=== PATIENT | female | born 1945 | race Caucasian/White ===

== ENCOUNTER 2020-05-15 22:44 | Inpatient (IN) | payer OTHER, SELFPAY ==
[2020-05-15 22:50] VITALS: BP 95/58; PULSE 72; PULSE 73; RESP 34; TEMP 38.3; O2SAT 84; O2SAT 94; BMI 33.2
[2020-05-15 22:55] VITALS: BP 95/58; PULSE 72; RESP 34; TEMP 38.3; O2SAT 94
--- NOTE | 2020-05-15 23:39 | RAD_ITS ---
STUDY: X-RAY CHEST REASON FOR EXAM: Female, 74 years old. Cough, shortness of breath. TECHNIQUE: AP portable chest. COMPARISON: None. FINDINGS: Patchy bilateral airspace opacities right lung greater than left, most prominent in the right midlung, right lower lung and left lower lung. No effusions. No pneumothorax. Normal size heart. Normal mediastinum and julia. Normal visualized pulmonary arteries. Normal visualized aortic arch and descending thoracic aorta. Normal visualized thoracic spine. Normal visualized ribs, clavicles, and shoulders. There is no demonstrated abnormality of the visualized soft tissue structures of the upper abdomen. RAD/Chest 1 View (Portable) IMPRESSION: Bilateral pneumonia. Electronically Signed: Billy Cook MD at 1:39 EDT , Service support ,
--- NOTE | 2020-05-15 23:39 | EKG12_ITS ---
Test Reason : SOB Blood Pressure : / mmHG Vent. Rate : 078 BPM Atrial Rate : 078 BPM P-R Int : 132 ms QRS Dur : 090 ms QT Int : 382 ms P-R-T Axes : 055 008 048 degrees QTc Int : 435 ms Sinus rhythm with Premature atrial complexes Cannot rule out Inferior infarct , age undetermined Abnormal ECG Confirmed by ALIZE ASHRAF, TESFAYE ([id number]), senior editor MITCHEL MATHIS ([id number]) on 05/17/2020 1:50:40 PM Referred By: LEONARDO Confirmed By:TESFAYE HERRMANN MD
[2020-05-15 23:41] VITALS: BP 148/135; PULSE 75; RESP 22; TEMP 39; O2SAT 96
--- NOTE | 2020-05-15 23:41 | ED.DCSUM_ITS ---
History of Present Illness Chief Complaint: Shortness of Breath Informant: Patient Narrative: 74-year-old female presenting with hypoxia, fever, generalized weakness, cough. She states that her has similar symptoms. She states that she developed her symptoms 7 days ago. She states that she feels worse today. Per EMS she was hypoxic. She states she is generally weak and fell today but she did not injure anything. She denies hitting her head. She states that she has Parkinson's disease which makes it hard for her at baseline. She denies chest pain. Past Medical History - Allergies and Home Meds Allergies/Adverse Reactions: Allergies No Known Allergies Allergy (Verified 05/16/20 05:46) Prior records reviewed: Yes Past Medical History: - - Parkinson's disease Surgical History: noncontributory Lives: Spouse/ Significant Other Smoking Status: Never smoker Alcohol: None Drugs: None - Family History Maternal Family History: Reports: - - Patient reported that her mother of old age. Paternal Family History: Reports: - - Patient denies paternal medical history. Review of Systems General: Reports: Chills, Fever, Malaise Eyes: Denies: Visual changes - bilaterally, Diplopia ENT: Denies: Rhinorrhea, Sore throat Cardiovascular: Denies: Chest pain, Palpitations Respiratory: Reports: Dyspnea, Cough, Dyspnea on exertion Gastrointestinal: Denies: Abdominal pain, Nausea, Vomiting, Diarrhea, Melena, Hematochezia Genitourinary: Denies: Dysuria, Hematuria, Frequency Musculoskeletal: Reports: Myalgias. Denies: Extremity Pain Skin: Denies: Rash, Abscess Neurological: Denies: Parasthesia, Numbness Physical Exam Vital Signs/Narrative: Vital Signs Temp Pulse Resp BP Pulse Ox 05/15/20 22:55 101.0 F H 72 34 H 95/58 L 94 05/15/20 22:50 101.0 F H 72 34 H 95/58 L 94 Inital Vital Signs reviewed: Yes General: Obese, No Acute Distress Head: Normocephalic, Atraumatic Eyes: Perrl, EOMI ENT: No rhinorrhea, Dry mucous membranes Cardiovascular: Regular rate, Regular rhythm Respiratory: No distress, Decreased Air Movement Abdomen: Soft, Nontender, Nondistended Skin: Normal color, No rash. Negative for: Cyanosis, Diaphoresis Neurological: Alert, Oriented x3 Psychological: Normal affect, Normal Mood Diagnostic/Tx/Re-eval Clinical Impression(s) from Imaging Studies Chest X-Ray 05/15/20 23:39 IMPRESSION: Bilateral pneumonia. Electronically Signed: Billy Cook MD at 1:39 EDT , Service support , Chest CTA 05/16/20 02:01 IMPRESSION: No pulmonary embolus or thoracic aortic dissection. Multifocal pneumonia right greater than left, to include viral pneumonia. Electronically Signed: Billy Cook MD at 3:22 EDT , Service support , Laboratory Data 05/15/20 05/15/20 05/16/20 00:12 23:50 01:15 WBC 3.4 L RBC 4.01 L Hgb 12.2 Hct 35.3 L MCV 88.0 MCH 30.4 MCHC 34.6 RDW Std Deviation 40.8 RDW Coeff of [place] 12.7 Plt Count 154 MPV 10.3 Immature Gran % (Auto) 0.300 Neut % (Auto) 78.7 H Lymph % (Auto) 14.[address] [place] % (Auto) 5.9 Eos % (Auto) 0.0 Baso % (Auto) 0.3 Absolute Neuts (auto) 2.7 Absolute Lymphs (auto) 0.50 L Nucleated RBC % 0 Differential Comment SCANNED Diff Path Review May foll PT INR APTT D-Dimer Quant (PE/DVT) Sodium Potassium Chloride Carbon Dioxide Anion Gap BUN Creatinine Estim Creat Clear Calc Est GFR (MDRD) Af Amer Est GFR (MDRD) Non-Af BUN/Creatinine Ratio Glucose Lactic Acid Calcium Total Bilirubin AST ALT Alkaline Phosphatase Troponin I Total Protein Albumin Globulin Albumin/Globulin Ratio Urine Color Straw Urine Clarity Clear Urine pH 6.0 Ur Specific [place] 1.010 Urine Protein 30 H Urine Glucose (UA) Normal Urine Ketones 15 H Urine Occult Blood 10 H Urine Nitrite Negative Urine Bilirubin Negative Urine Urobilinogen 1 H Ur Leukocyte Esterase 25 H Urine RBC 0-5 SEEN Urine WBC 0-5 SEEN Ur Squamous Epith Cells 0 SEEN Urine Bacteria RARE Urine Mucus 0 SEEN COVID-19 ([place]) Detected 1005/16/20 05/16/20 01:15 01:15 01:15 WBC RBC Hgb Hct MCV MCH MCHC RDW Std Deviation RDW Coeff of [place] Plt Count MPV Immature Gran % (Auto) Neut % (Auto) Lymph % (Auto) [place] % (Auto) Eos % (Auto) Baso % (Auto) Absolute Neuts (auto) Absolute Lymphs (auto) Nucleated RBC % Differential Comment Diff Path Review PT 13.8 INR 1.1 APTT 24.5 D-Dimer Quant (PE/DVT) 1.34 H* Sodium 134 L Potassium 3.1 L Chloride 99 Carbon Dioxide 23.0 Anion Gap 12 BUN 11 Creatinine 0.76 Estim Creat Clear Calc 41.45 Est GFR (MDRD) Af Amer 96 Est GFR (MDRD) Non-Af 79 BUN/Creatinine Ratio 14.5 Glucose 124 H Lactic Acid 1.3 Calcium 8.1 L Total Bilirubin 0.60 AST 50 H ALT 43 Alkaline Phosphatase 59 Troponin I 0.018 Total Protein 6.0 L Albumin 2.6 L Globulin 3.4 Albumin/Globulin Ratio 0.8 L Urine Color Urine Clarity Urine pH Ur Specific [place] Urine Protein Urine Glucose (UA) Urine Ketones Urine Occult Blood Urine Nitrite Urine Bilirubin Urine Urobilinogen Ur Leukocyte Esterase Urine RBC Urine WBC Ur Squamous Epith Cells Urine Bacteria Urine Mucus COVID-19 ([place]) - Rhythm Strip Rhythm Strip: Sinus Rhythm Rate: 78 - EKG Initial EKG Interpretation: Sinus Rhythm, No Acute Injury Pattern - Medical Decision Making 74-year-old female presenting with hypoxia, fever, cough. She states that she believes she has Covid. She also believes her has it. She is feeling short of breath. Rival her oxygen is in the 80s. Since lab work is consistent with viral syndrome. She is positive for Covid. She stabilized on 3L of oxygen and maintaining sats in the 90s. Chest x-ray bilateral pneumonia. CTA shows concern for Covid?19. There are no pulmonary emboli. Patient will be admitted to the medical floor for treatment of her hypoxia and Covid?19. Impression: 1. Covid?19 pneumonia 2. Hypoxia 3. Fever ED Disposition - Plan for ED Patient: Disposition: Acute Care Hospital [facility]
[2020-05-15 23:43] VITALS: O2SAT 96
[2020-05-15] MEDS: Acetaminophen 500 MG Tablet 1000 MG PO (23:57)
[2020-05-16] VITALS (9 sets, daily range): BP systolic 110–125; BP diastolic 50–80; PULSE 61–70; RESP 17–20; TEMP 36.5–37.3; O2SAT 93–99; BMI 32.1
[2020-05-16 00:34] LABS: Color, Urine Straw (Yellow); Glucose, Dipstick Normal (Normal); Ketone-Dipstick 15 mg/dl (Negative); Leukocyte Esterase-Dipstick 25 /ul (Negative); Mucous, Urine 0 SEEN /hpf (<or=2+); Nitrite-Dipstick Negative (Negative); Occult Blood-Urine 10 /ul (Negative); Protein-Dipstick 30 mg/dl (Negative); Squamous Epithelial Cells - UA 0 SEEN /hpf (5-10); Urine Bilirubin Dipstick Negative (Negative); Urine Clarity Clear (Clear); Urine Urobilinogen 1 mg/dl (Normal)
[2020-05-16 00:41] LABS: Bacteria RARE /hpf (None Seen); Red Blood Cells-Urine 0-5 SEEN /hpf (0-5); White Blood Cells 0-5 SEEN /hpf (0-5)
[2020-05-16 01:23] LABS: Absolute Neutrophil Count 2.7 X10^3/uL (2.0-7.7); Basophil# 0.01 X10^3/uL; Basophil% 0.3 % (0-1); Hematocrit 35.3 % (37-47); Hemoglobin 12.2 g/dL (12.0-15.0); Lymphocyte % 14.8 % (19-41); Mean Corp Hgb Conc 34.6 g/dL (32-36); Mean Corpuscular Hgb 30.4 pg (27.0-32.0); Mean Platelet Vol. 10.3 fl (6.2-12.0); Monocyte% 5.9 % (0-10); NRBC Flagged by Analyzer 0 % (0-5); Neutrophil # 2.65 X10^3/uL (2.7-7.7); Neutrophil % 78.7 % (47-70); POSITIVE COUNT YES; POSITIVE DIFFERENTIAL YES; Platelet Count 154 K/mm3 (150-450); RBC Distribution Width CV 12.7 % (11.6-14.6); RBC Distribution Width SD 40.8 fl (35.1-43.9); Red Blood Count 4.01 M/mm3 (4.2-5.4); White Blood Count 3.4 K/mm3 (4.4-11.0)
[2020-05-16 01:32] LABS: International Normalized Ratio 1.1; Prothrombin Time (Protime)PT. 13.8 SECONDS (11.7-14.9)
[2020-05-16 01:33] LABS: Partial Thromboplast Time 24.5 Seconds (24.1-36.2)
[2020-05-16 01:38] LABS: D-Dimer Quantitative (DVT/PE) 1.34 FEU/ug/m (0.27-0.49)
[2020-05-16 01:39] LABS: Differential Indicated SCAN CRITERIA MET
[2020-05-16 01:40] LABS: ALB/GLOB Ratio 0.8 RATIO (0.9-2.4); AST(SGOT) 50 U/L (15-37); Alanine Aminotransfer ALT/SGPT 43 U/L (13-56); Albumin, Serum 2.6 g/dL (3.2-5.0); Alkaline Phosphatase 59 U/L (45-117); Anion Gap 12 (5-15); BUN 11 mg/dL (7-18); BUN/Creat Ratio 14.5 RATIO (10-20); Calcium,Total 8.1 mg/dL (8.5-10.1); Chloride 99 mmol/L (98-107); Creatinine, Serum 0.76 mg/dL (0.55-1.02); EST Glomerular Filtration Rate 79 mL/min (>60); Est Glom Filt Rate - Afr Amer 96 mL/min (>60); Estimated Creatinine Clearance 41.45 ml/min; Globulin 3.4 g/dL (2.2-4.2); Glucose 124 mg/dL (74-106); Potassium 3.1 mmol/L (3.5-5.1); Sodium Level 134 mmol/L (136-145)
--- NOTE | 2020-05-16 02:01 | CT_ITS ---
STUDY: CTA CHEST REASON FOR EXAM: Female, 74 years old. Cough, shortness of breath, hypoxia. History of Parkinson''s disease. RADIATION DOSAGE (If Supplied By Facility): CTDIvol = ( 14.58 ) mGy, DLP = ( 499.06 ) mGycm TECHNIQUE: The examination was performed with the intravenous administration of IV 75mL [id number]-[id number]. Post-processing of the angiographic images was performed, with multiplanar reformation and 3D reconstruction. Individualized dose optimization techniques were used for this CT. COMPARISON: Chest x-ray May 16, 2020. FINDINGS: Normal enhancement of the main pulmonary artery and right and left pulmonary arteries. Normal enhancement of the bilateral peripheral pulmonary arteries. There is no demonstrated pulmonary embolism. Normal thoracic aorta and visualized great vessels. There is no demonstrated aortic dissection. Normal heart and pericardium. Normal mediastinum. Normal hilar regions. Normal visualized trachea and bronchi. Multiple peripheral groundglass opacities and multiple focal areas of consolidation, right greater than left. No pleural effusions. No pneumothorax. Normal chest wall structures. Normal osseous structures. Normal visualized upper abdomen. CT/CTA Chest W/WO Contrast IMPRESSION: No pulmonary embolus or thoracic aortic dissection. Multifocal pneumonia right greater than left, to include viral pneumonia. Electronically Signed: Billy Cook MD at 3:22 EDT , Service support ,
[2020-05-16 02:06] LABS: Lactic Acid 1.3 mmol/L (0.4-1.9)
[2020-05-16 02:15] LABS: Differential Comment SCANNED
--- NOTE | 2020-05-16 04:52 | PCM.HP.STD ---
Problem List (1) COVID-19 virus detected Status: Acute (2) Pneumonia due to 2019 novel coronavirus Status: Acute History of Present Illness Date of Admission: 05/16/20 Chief Complaint: SOB The patient is a 74 year old F with a significant history of Parkinson's disease who presents to the emergency department with a 2-week history of progressively worsening shortness of breath. Associated with symptoms is a productive cough. However she swallows her sputum and cannot tell the color.. 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 Past Medical History Medical History: Medical History (Last Updated 05/16/20 @ 05:[address] Timothy Crews MD) Parkinsons disease G20 Allergies No Known Allergies Allergy (Verified 05/15/20 22:48) Home Medications: Ambulatory Orders Medication Instructions Recorded Carbidopa/Levodopa 25/250 [Sinemet] 1 tab PO 4X/DAY 05/15/20 Pramipexole Di-HCl [Mirapex] 1.5 mg PO TID 05/15/20 Rasagiline Mesylate [Azilect] 1 mg PO DAILY 05/15/20 Surgical History: no surgical history Lives: Spouse/ Significant Other Smoking Status: Never smoker Alcohol: None Drugs: None - *Family History Maternal History Items: - - Patient reported that her mother of old age. Paternal History Items: - - Patient denies paternal medical history. Review of Systems Constitutional: Reports: Chills, Fever, Malaise, Fatigue. Denies: Weight Change HEENT: Denies: Head Aches, Sinus Congestion, Sinus Drainage Cardiovascular: Denies: Chest Pain, Palpitations Respiratory: Reports: Cough, Shortness of Breath, Sputum production Gastrointestinal: Denies: Abdominal Pain, Nausea, Vomiting Genitourinary: Denies: Dysuria Musculoskeletal: Denies: Joint Pain, Joint Tenderness Skin: Denies: Rash, Wounds Neurological: Denies: Numbness, Tingling, Focal weakness Psychiatric: Denies: Anxiety, Depression, Homicidal Ideations, Suicidal Ideations Hematologic/ Lymphatic: Denies: Easy Bruising, Easy Bleeding VTE Information - Inpt Only VTE Present on Admission: No VTE Mechan Device Prophylaxis: None VTE Pharm Prophylaxis ordered?: Yes Patient Problems: Active and Suspected Problems (Last Updated 05/16/20 @ 05:[address] Timothy Crews MD) COVID-19 virus detected (Acute) Pneumonia due to 2019 novel coronavirus (Acute) - Physical Exam Vitals/I&O's: Vital Signs Temp Pulse Resp BP Pulse Ox 97.7 F L 61 20 H 125/80 H 99 05/16/20 04:11 05/16/20 04:11 05/16/20 04:11 05/16/20 04:11 05/16/20 04:11 Oxygen Flow Rate (L/min) 3 Oxygen Delivery Method Nasal Cannula Weight: 85 kg Body Mass Index (BMI) 33.2 Intake and Output for Last 24 Hours 05/14/20 05/15/20 05/16/20 23:59 23:59 23:59 Intake Total 500 / 500 Balance 500 / 500 General: Alert, Oriented x3, Cooperative HEENT: Atraumatic, PERRLA, EOMI, Normocephalic Neck: Supple, No JVD, Negative Carotid Bruits Lungs: Rales Cardiovascular: Regular rate, Normal S1, Normal S2, No murmurs Abdomen: Bowel Sounds Present, Soft, Non Tender Extremities: No edema, Capillary Refill Less than 3 Seconds Skin: No rashes, No breakdown Musculoskeletal: No Tenderness to Palpation of Joints or Extremities Neurological: Cranial nerves II-XII grossly intact Psych/Mental Status: Normal Affect, Appropriate Laboratory Results 05/15/20 00:12: Urine Color Straw, Urine Clarity Clear, Urine pH 6.0, Ur Specific [place] 1.010, Urine Protein 30 H, Urine Glucose (UA) Normal, Urine Ketones 15 H, Urine Occult Blood 10 H, Urine Nitrite Negative, Urine Bilirubin Negative, Urine Urobilinogen 1 H, Ur Leukocyte Esterase 25 H, Urine RBC 0-5 SEEN, Urine WBC 0-5 SEEN, Ur Squamous Epith Cells 0 SEEN, Urine Bacteria RARE, Urine Mucus 0 SEEN 05/15/20 23:50: COVID-19 ([place]) Detected 05/16/20 01:15: WBC 3.4 L, RBC 4.01 L, Hgb 12.2, Hct 35.3 L, MCV 88.0, MCH 30.4, MCHC 34.6, RDW Std Deviation 40.8, RDW Coeff of [place] 12.7, Plt Count 154, MPV 10.3, Immature Gran % (Auto) 0.300, Neut % (Auto) 78.7 H, Lymph % (Auto) 14.8 L, [place] % (Auto) 5.9, Eos % (Auto) 0.0, Baso % (Auto) 0.3, Absolute Neuts (auto) 2.7, Absolute Lymphs (auto) 0.50 L, Nucleated RBC % 0, Differential Comment SCANNED, Diff Path Review November05/16/20 01:15: PT 13.8, INR 1.1, APTT 24.5, D-Dimer Quant (PE/DVT) 1.34 H* 05/16/20 01:15: Sodium 134 L, Potassium 3.1 L, Chloride 99, Carbon Dioxide 23.0, Anion Gap 12, BUN 11, Creatinine 0.76, Estim Creat Clear Calc 41.45, Est GFR (MDRD) Af Amer 96, Est GFR (MDRD) Non-Af 79, BUN/Creatinine Ratio 14.5, Glucose 124 H, Calcium 8.1 L, Total Bilirubin 0.60, AST 50 H, ALT 43, Alkaline Phosphatase 59, Troponin I 0.018, Total Protein 6.0 L, Albumin 2.6 L, Globulin 3.4, Albumin/Globulin Ratio 0.8 L 05/16/20 01:15: Lactic Acid 1.3 Assessment/Plan All Active Problems (Last Updated 05/16/20 @ 05:[address] Timothy Crews MD) COVID-19 virus detected (Acute) Pneumonia due to 2019 novel coronavirus (Acute) SARS COVID-19 infection. Dimer was elevated. Chest x-ray showed bilateral pneumonia. Chest CT was remarkable for multifocal pneumonia right greater than left. Different diagnoses included viral pneumonia. COVID-19 was positive. Procalcitonin, strep pneumonia antigen and Legionella urine antigen ordered. Ceftriaxone and azithromycin ordered. Decadron IV ordered. Infectious disease consult and pulmonology consult. Tylenol for fever and Mucinex for cough ordered. Parkinson disease: Home medication continued. DVT Prophylaxis Lovenox 30 mg bid subcutaneous prophylaxis Covid protocol. Inpatient E&M: 41770 Init Hosp L3
[2020-05-16] MEDS: Ceftriaxone 1 GM/50 ML BAG IV (06:10)
[2020-05-16] MEDS: dexAMETHasone 10 MG/ML Vial 6 MG IV ×2 (06:12→09:47)
[2020-05-16] MEDS: Pramipexole Di-HCl 1 MG Tablet 1.5 MG PO ×3 (06:13→23:03)
--- NOTE | 2020-05-16 07:30 | PCM.CONS.PUL ---
Reason for Consult Date of Consultation: 05/16/20 Reason for Consultation: Covid pneumonia History of Present Illness: The patient is a 74-year-old female, with a history as outlined below, who presented to the emergency department on May 15 with complaints of progressive shortness of breath, nonproductive cough and weakness of approximately 2 weeks duration. She does report that additional family members, including her sister have been ill and apparently diagnosed with Covid. On presentation to the emergency department, the patient was noted to be febrile with a temperature of 101 ?F. She was tachypneic as well and saturating 84% on room air. Laboratory evaluation revealed an elevated D-dimer at 1.34. Chemistry profile was notable for a sodium of 134 and potassium of 3.1. Lactate was within normal limits. Urinalysis was unremarkable. Coronavirus PCR was positive. CTA chest was obtained and failed to demonstrate evidence for PE. There was, nevertheless, evidence of bilateral multifocal groundglass changes with some basilar predominant consolidation. The patient was placed on empiric antimicrobials along with Decadron and admitted to the progressive care unit for further management. Past Medical History Medical History: Medical History (Last Updated 05/16/20 @ 05:[address] Timothy Crews MD) Parkinsons disease G20 Allergies No Known Allergies Allergy (Verified 05/16/20 05:46) Home Medications: Ambulatory Orders Medication Instructions Recorded Carbidopa/Levodopa 25/250 [Sinemet] 1 tab PO 4X/DAY 05/15/20 Pramipexole Di-HCl [Mirapex] 1.5 mg PO TID 05/15/20 Rasagiline Mesylate [Azilect] 1 mg PO DAILY 05/15/20 Surgical History: no surgical history Lives: Spouse/ Significant Other Smoking Status: Never smoker Alcohol: None Drugs: None - *Family History Maternal History Items: - - Patient reported that her mother of old age. Paternal History Items: - - Patient denies paternal medical history. Review of Systems Constitutional: Reports: Chills, Fever, Malaise, Weakness, Fatigue Eyes: Denies: Blurred vision, Double vision HEENT: Denies: Head Aches, Sinus Congestion, Sinus Drainage Cardiovascular: Denies: Chest Pain, Palpitations Respiratory: Reports: Cough, Shortness of Breath Gastrointestinal: Denies: Abdominal Pain, Nausea, Vomiting Genitourinary: Denies: Dysuria Musculoskeletal: Denies: Joint Pain, Joint Tenderness Skin: Denies: Rash, Wounds Neurological: Denies: Numbness, Tingling, Focal weakness Psychiatric: Denies: Anxiety, Depression, Homicidal Ideations, Suicidal Ideations Hematologic/ Lymphatic: Denies: Easy Bruising, Easy Bleeding Patient Problems: Active and Suspected Problems (Last Updated 05/16/20 @ 05:[address] Timothy Crews MD) COVID-19 virus detected (Acute) Pneumonia due to 2019 novel coronavirus (Acute) Objective: The patient's most recent lab work, culture data and imaging studies have all been personally reviewed. - Physical Exam Vitals/I&O's: Vital Signs Temp Pulse Resp BP Pulse Ox 99.1 F 70 18 110/52 L 94 05/16/20 05:56 05/16/20 05:56 05/16/20 05:56 05/16/20 05:56 05/16/20 05:56 Oxygen Flow Rate (L/min) 3 Oxygen Delivery Method Nasal Cannula Weight: 180 lb 15.992 oz Body Mass Index (BMI) 32.1 Intake and Output for Last 24 Hours 05/14/20 05/15/20 05/16/20 23:59 23:59 23:59 Intake Total 550 / 550 Balance 550 / 550 General: Alert, Cooperative, No apparent distress HEENT: Atraumatic, PERRLA, Normocephalic Oral: No Gingival or Mucosal Lesions/ Ulcerations Neck: Supple, No Nodes, Trachea Midline Lungs: Diminished, Rales, - - Speaking in complete sentences. No accessory muscle use. Cardiovascular: Regular rate, Regular Rhythm Abdomen: Bowel Sounds Present, Soft, Non Tender Extremities: No clubbing, No cyanosis, No edema Skin: No breakdown Musculoskeletal: No Tenderness to Palpation of Joints or Extremities Lymphatic: No Cervical, Supraclavicular, or Inguinal Adenopathy Neurological: Cranial nerves II-XII grossly intact, Neuro grossly intact Psych/Mental Status: Normal Affect, Appropriate Labs (Last 48 Hours) 05/15/20 05/15/20 05/16/20 00:12 23:50 01:15 WBC 3.4 L RBC 4.01 L Hgb 12.2 Hct 35.3 L MCV 88.0 MCH 30.4 MCHC 34.6 RDW Std Deviation 40.8 RDW Coeff of [place] 12.7 Plt Count 154 MPV 10.3 Immature Gran % (Auto) 0.300 Neut % (Auto) 78.7 H Lymph % (Auto) 14.8 L [place] % (Auto) 5.9 Eos % (Auto) 0.0 Baso % (Auto) 0.3 Absolute Neuts (auto) 2.7 Absolute Lymphs (auto) 0.50 L Nucleated RBC % 0 Differential Comment SCANNED Diff Path Review May foll PT INR APTT D-Dimer Quant (PE/DVT) Sodium Potassium Chloride Carbon Dioxide Anion Gap BUN Creatinine Estim Creat Clear Calc Est GFR (MDRD) Af Amer Est GFR (MDRD) Non-Af BUN/Creatinine Ratio Glucose Lactic Acid Calcium Total Bilirubin AST ALT Alkaline Phosphatase Troponin I Total Protein Albumin Globulin Albumin/Globulin Ratio Urine Color Straw Urine Clarity Clear Urine pH 6.0 Ur Specific [place] 1.010 Urine Protein 30 H Urine Glucose (UA) Normal Urine Ketones 15 H Urine Occult Blood 10 H Urine Nitrite Negative Urine Bilirubin Negative Urine Urobilinogen 1 H Ur Leukocyte Esterase 25 H Urine RBC 0-5 SEEN Urine WBC 0-5 SEEN Ur Squamous Epith Cells 0 SEEN Urine Bacteria RARE Urine Mucus 0 SEEN COVID-19 ([place]) Detected 05/16/20 05/16/20 05/16/20 01:15 01:15 01:15 WBC RBC Hgb Hct MCV MCH MCHC RDW Std Deviation RDW Coeff of [place] Plt Count MPV Immature Gran % (Auto) Neut % (Auto) Lymph % (Auto) [place] % (Auto) Eos % (Auto) Baso % (Auto) Absolute Neuts (auto) Absolute Lymphs (auto) Nucleated RBC % Differential Comment Diff Path Review PT 13.8 INR 1.1 APTT 24.5 D-Dimer Quant (PE/DVT) 1.34 H* Sodium 134 L Potassium 3.1 L Chloride 99 Carbon Dioxide 23.0 Anion Gap 12 BUN 11 Creatinine 0.76 Estim Creat Clear Calc 41.45 Est GFR (MDRD) Af Amer 96 Est GFR (MDRD) Non-Af 79 BUN/Creatinine Ratio 14.5 Glucose 124 H Lactic Acid 1.3 Calcium 8.1 L Total Bilirubin 0.60 AST 50 H ALT 43 Alkaline Phosphatase 59 Troponin I 0.018 Total Protein 6.0 L Albumin 2.6 L Globulin 3.4 Albumin/Globulin Ratio 0.8 L Urine Color Urine Clarity Urine pH Ur Specific [place] Urine Protein Urine Glucose (UA) Urine Ketones Urine Occult Blood Urine Nitrite Urine Bilirubin Urine Urobilinogen Ur Leukocyte Esterase Urine RBC Urine WBC Ur Squamous Epith Cells Urine Bacteria Urine Mucus COVID-19 ([place]) Microbiology 05/16/20 06:00 Urine, Clean Catch Streptococcus pneumoniae Antigen (M - Final 05/16/20 06:00 Urine, Clean Catch Legionella Antigen - Final Clinical Impression(s) from Imaging Studies Chest X-Ray 05/15/20 23:39 IMPRESSION: Bilateral pneumonia. Electronically Signed: Billy Cook MD at 1:39 EDT , Service support , Chest CTA 05/16/20 02:01 IMPRESSION: No pulmonary embolus or thoracic aortic dissection. Multifocal pneumonia right greater than left, to include viral pneumonia. Electronically Signed: Billy Cook MD at 3:22 EDT , Service support , Current Medications Acetaminophen (Acetaminophen 325 Mg Tablet) 650 mg PO Q6H PRN PRN PRN Reason: Pain Score 1-10/Temp > 100.7 F Carbidopa/Levodopa (Carbidopa/Levodopa 25/250 Tablet) 1 tablet PO 4X/DAY [facility] Dexamethasone Sodium Phosphate (Dexamethasone 10 Mg/Ml Vial) 6 mg IV DAILY [facility] Last Admin: 05/16/20 06:12 Dose: 6 mg Documented by: Enoxaparin Sodium (Enoxaparin 30 Mg/0.3 Ml Syringe) 30 mg SC BID [facility] Guaifenesin (Guaifenesin 1,200 Mg Tablet) 1,200 mg PO BID [facility] Azithromycin 500 mg/ Dextrose 255 mls @ 250 mls/hr IV QHS [facility] Last Admin: 05/16/20 06:55 Dose: 250 mls/hr Documented by: Ceftriaxone Sodium (Rocephin) 1 gm in 50 mls @ 100 mls/hr IV QHS [facility] Last Infusion: 05/16/20 06:40 Dose: Infused Documented by: Sodium Chloride () 250 mls @ 15 mls/hr IV .[id number] PRN PRN Reason: Saline Flush Sodium Chloride () 250 mls @ 15 mls/hr IV .[id number] PRN PRN Reason: Additional IVPB Infusion Melatonin (Melatonin 3 Mg Tablet) 3 mg PO QHS PRN PRN PRN Reason: INSOMNIA Ondansetron HCl (Ondansetron 4 Mg/2 Ml Vial) 4 mg IV Q8H PRN PRN PRN Reason: NAUSEA/VOMITING Pramipexole Dihydrochloride (Pramipexole Di-Hcl 1 Mg Tablet) 1.5 mg PO TID [facility] Last Admin: 05/16/20 06:13 Dose: 1.5 mg Documented by: Rasagiline (Rasagiline Mesylate 1 Mg Tablet) 1 mg PO DAILY [facility] Sodium Chloride (0.9% Saline Lock 10 Ml Syringe) 10 - 40 ml IV UD PRN PRN Reason: SALINE FLUSH Assessment/Plan All Active Problems (Last Updated 05/16/20 @ 05:[address] Timothy Crews MD) COVID-19 virus detected (Acute) Pneumonia due to 2019 novel coronavirus (Acute) RECOMMENDATIONS: 1. Wean supplemental oxygen to maintain saturations at or above 90%. 2. Continue Decadron 6 mg daily x10 days. 3. Continue empiric antimicrobials, pending evaluation by infectious diseases. 4. Unlikely to benefit from convalescent plasma and/or remdesivir, given duration of symptoms. 5. Electrolyte repletion as ordered. 6. Encourage incentive spirometer use and mobilize patient as tolerated. IMPRESSIONS: 1. Acute hypoxemic respiratory failure secondary to COVID-19 pneumonia The patient presented to the hospital with Covid-like symptoms of approximately 2 weeks duration. She is currently maintaining appropriate oxygen saturations on nasal cannula supplemental oxygen. Given the patient's duration of symptoms, she is unlikely to benefit from remdesivir or convalescent plasma. However, infectious diseases consultation is currently pending. We will plan to continue empiric antimicrobials for now. Plan to wean supplemental oxygen to maintain saturations at or above 90%. Continue Decadron 6 mg daily x10 days. Encourage incentive spirometer use and mobilize patient as tolerated. 2. Hypokalemia Electrolyte repletion as ordered. Recheck levels in the morning. This note was generated with [employer]atch[employer] software. It may contain incorrect words, spelling, and punctuation that were not noted in checking the note before signing. Inpatient E&M: 53442 Init Hosp L3
--- NOTE | 2020-05-16 08:20 | PCM.PN.BLA ---
Progress Note 74-year-old female who was admitted with hypoxia and fever and cough and diagnosed with acute COVID-19. Patient was seen and examined. She feels very weak. Vitals reviewed, on 2 L of oxygen. D-dimer is elevated, potassium is 3.1, magnesium is 2.1. Potassium is being replaced. Cesar blood work in a.m. On IV dexamethasone CT of the chest is negative for acute PE, showed multifocal pneumonia, right greater than left. ID consulted STROKE Vital Signs/Narrative: Vital Signs Temp Pulse Resp BP Pulse Ox 05/16/20 05:56 99.1 F 70 18 110/52 L 94
[2020-05-16 08:31] LABS: Absolute Lymphocyte Count 0.44 X10^3/uL (0.83-4.51); Absolute Neutrophil Count 2.4 X10^3/uL (2.0-7.7); Basophil# 0.01 X10^3/uL; Basophil% 0.3 % (0-1); Eosinophil# 0.01 X10^3/uL; Eosinophils% 0.3 % (0-5); Hematocrit 37.1 % (37-47); Hemoglobin 12.6 g/dL (12.0-15.0); Lymphocyte # 0.44 X10^3/ul (4.0); Lymphocyte % 14.5 % (19-41); Mean Corpuscular Volume 88.3 fL (81-99); Mean Platelet Vol. 9.9 fl (6.2-12.0); Monocyte# 0.12 X10^3/uL; NRBC Flagged by Analyzer 0 % (0-5); Neutrophil # 2.43 X10^3/uL (2.7-7.7); Neutrophil % 80.2 % (47-70); POSITIVE DIFFERENTIAL YES; POSITIVE MORPHOLOGY YES; Platelet Count 170 K/mm3 (150-450); RBC Distribution Width CV 12.9 % (11.6-14.6); RBC Distribution Width SD 41.7 fl (35.1-43.9)
[2020-05-16 08:36] LABS: Differential Indicated SCAN CRITERIA MET
[2020-05-16 09:11] LABS: Platelet Estimate ADEQUATE (ADEQ); Red Cell Morphology NORM C+C NORMAL (NORM C&C)
[2020-05-16 09:19] LABS: Magnesium 2.1 mg/dL (1.6-2.6)
[2020-05-16] MEDS: Enoxaparin 30 MG/0.3 ML Syringe SC ×2 (09:48→23:03)
[2020-05-16] MEDS: guaiFENesin 1,200 MG Tablet 1200 MG PO ×2 (09:48→23:03)
[2020-05-16] MEDS: Carbidopa/Levodopa 25/250 Tablet PO ×4 (09:49→19:50)
[2020-05-16] MEDS: 0.9% Saline Lock 10 ML Syringe IV ×2 (09:49→15:49)
--- NOTE | 2020-05-16 12:48 | CASEMGMT ---
HUYEN HANNAH assessment: Phone interview with patient for initial transition planning/care coordination assessment as pt is currently in COVID precautions. HUYEN HANNAH introduced self and role at [facility], pt voices understanding and consents to assessment at this time. Pt is A/Ox4 at this time and answers all questions appropriately at this time. Pt is SOB and unable to speak in full sentences at times. Pt is currently on 3liters nc at this time. Pt states has symptoms and has been in quarantine at home with other family to assist if needed. Pt states several other family members have had symptoms as well. Care providers, pharmacy, and demographics verified at this time. Presentation: Pt reports cough and SOB starting several days ago becoming worse today. EMS states family had a pulse ox they were checking pt with and was dipping in to mid 80's. Admitting dx: SOB, SARS COVID 19 PCP: Keith Specialists: Pt states no current specialists. Preferred Pharmacy: [facility] but pt would like to use [facility] at this discharge so that he can just take meds home with her. Insurance: AA Prescription Benefit: Out of pocket and protestant will help if needed. Living Will/HPOA: Pt states does not have LW/HPOA and declines AD info at this time. LNOK: Wayne Hamilton, ; Huan/Kenya Hamilton, son/[id number] Living Arrangements: Pt states lives with in home and states no concerns at home at this time. Pt states is independent with ADL's. Transportation: Pt states normally no concerns with transportation but unsure with COVID diagnosis. Pt aware that one of the [facility] do take COVID pt's, voices understanding. DME/HHC: Pt has the following DME: grab bars, shower chair, walker, and w/c and states no need for any further DME at this time. Pt states would like [employer] for DME company if home oxygen needed at discharge. zPt states does have electric for home oxygen if needed. Pt states no hx of HHC or SNF in the past. Pt states no concerns with going home at time of discharge. Pt states does not smoke cigarettes or drink ETOH. Pt states no further concerns/needs at this time. CM to follow for home oxygen testing, PT/OT evals, and any further discharge planning/needs. Advised pt to ask for CM if any further questions/concerns/needs arise, voices understanding. Pt Goal: Home Plan: Home Sandra MATSON CM
[2020-05-16] MEDS: Potassium Chloride 10mEq/100mL 10 MEQ/100 ML IV.SOLN. 100 MEQ IV BOLUS ×4 (12:56→18:54)
[2020-05-16 14:30] LABS: Pathologist Review Reviewed
--- NOTE | 2020-05-16 16:31 | CON.PCM_ITS ---
Problem List (1) COVID-19 virus detected Status: Acute Reason for Consult: covid Consulted by: Dr. Nunez History of Present Illness: The patient is a 74 year old F who presented with 2 weeks of cough, aches, nausea, fatigue. Multiple family members sick. Covid (+). Came to ED, started on azithro, ceftriaxone, dex. CT showed no PE. Fever to 102.2. 84% on RA on admit. Minimal green sputum, unable to produce a sample since she came in. Full ROS performed and neg except as noted above. - Medical History Surgical History: reviewed Allergies/Adverse Reactions: Allergies No Known Allergies Allergy (Verified 05/16/20 05:46) Home Medications: Ambulatory Orders Medication Instructions Recorded Carbidopa/Levodopa 25/250 [Sinemet] 1 tab PO 4X/DAY 05/15/20 Pramipexole Di-HCl [Mirapex] 1.5 mg PO TID 05/15/20 Rasagiline Mesylate [Azilect] 1 mg PO DAILY 05/15/20 - Social History Tobacco Use: non-smoker Vital Signs Temp Pulse Resp BP Pulse Ox 98.4 F 65 20 H 110/56 L 95 05/16/20 15:50 05/16/20 15:50 05/16/20 15:50 05/16/20 15:50 05/16/20 15:50 Oxygen Flow Rate (L/min) 3 Oxygen Delivery Method Nasal Cannula Weight: 82.1 kg Body Mass Index (BMI) 32.1 Microbiology Past 72 Hours 05/16/20 06:00 Streptococcus pneumoniae Antigen (M - Final Urine, Clean Catch 05/16/20 06:00 Legionella Antigen - Final Urine, Clean Catch Laboratory Tests Past 24 Hrs 05/15/20 05/15/20 05/16/20 00:12 23:50 01:15 WBC 3.4 L RBC 4.01 L Hgb 12.2 Hct 35.3 L MCV 88.0 MCH 30.4 MCHC 34.6 RDW Std Deviation 40.8 RDW Coeff of [place] 12.7 Plt Count 154 MPV 10.3 Immature Gran % (Auto) 0.300 Neut % (Auto) 78.7 H Lymph % (Auto) 14.8 L [place] % (Auto) 5.9 Eos % (Auto) 0.0 Baso % (Auto) 0.3 Absolute Neuts (auto) 2.7 Absolute Lymphs (auto) 0.50 L Nucleated RBC % 0 Differential Comment SCANNED Diff Path Review Reviewed Platelet Estimate RBC Morphology PT INR APTT D-Dimer Quant (PE/DVT) Sodium Potassium Chloride Carbon Dioxide Anion Gap BUN Creatinine Estim Creat Clear Calc Est GFR (MDRD) Af Amer Est GFR (MDRD) Non-Af BUN/Creatinine Ratio Glucose Lactic Acid Calcium Magnesium Total Bilirubin AST ALT Alkaline Phosphatase Troponin I Total Protein Albumin Globulin Albumin/Globulin Ratio Procalcitonin Urine Color Straw Urine Clarity Clear Urine pH 6.0 Ur Specific [place] 1.010 Urine Protein 30 H Urine Glucose (UA) Normal Urine Ketones 15 H Urine Occult Blood 10 H Urine Nitrite Negative Urine Bilirubin Negative Urine Urobilinogen 1 H Ur Leukocyte Esterase 25 H Urine RBC 0-5 SEEN Urine WBC 0-5 SEEN Ur Squamous Epith Cells 0 SEEN Urine Bacteria RARE Urine Mucus 0 SEEN COVID-19 ([place]) Detected 05/16/20 05/16/20 05/16/20 01:15 01:15 01:15 WBC RBC Hgb Hct MCV MCH MCHC RDW Std Deviation RDW Coeff of [place] Plt Count MPV Immature Gran % (Auto) Neut % (Auto) Lymph % (Auto) [place] % (Auto) Eos % (Auto) Baso % (Auto) Absolute Neuts (auto) Absolute Lymphs (auto) Nucleated RBC % Differential Comment Diff Path Review Platelet Estimate RBC Morphology PT 13.8 INR 1.1 APTT 24.5 D-Dimer Quant (PE/DVT) 1.34 H* Sodium 134 L Potassium 3.1 L Chloride 99 Carbon Dioxide 23.0 Anion Gap 12 BUN 11 Creatinine 0.76 Estim Creat Clear Calc 41.45 Est GFR (MDRD) Af Amer 96 Est GFR (MDRD) Non-Af 79 BUN/Creatinine Ratio 14.5 Glucose 124 H Lactic Acid 1.3 Calcium 8.1 L Magnesium Total Bilirubin 0.60 AST 50 H ALT 43 Alkaline Phosphatase 59 Troponin I 0.018 Total Protein 6.0 L Albumin 2.6 L Globulin 3.4 Albumin/Globulin Ratio 0.8 L Procalcitonin Urine Color Urine Clarity Urine pH Ur Specific [place] Urine Protein Urine Glucose (UA) Urine Ketones Urine Occult Blood Urine Nitrite Urine Bilirubin Urine Urobilinogen Ur Leukocyte Esterase Urine RBC Urine WBC Ur Squamous Epith Cells Urine Bacteria Urine Mucus COVID-19 ([place]) 05/16/20 05/16/20 05/16/20 08:14 08:14 08:14 WBC 3.0 L RBC 4.20 Hgb 12.6 Hct 37.1 MCV 88.3 MCH 30.0 MCHC 34.0 RDW Std Deviation 41.7 RDW Coeff of [place] 12.9 Plt Count 170 MPV 9.9 Immature Gran % (Auto) 0.700 Neut % (Auto) 80.2 H Lymph % (Auto) 14.5 L [place] % (Auto) 4.0 Eos % (Auto) 0.3 Baso % (Auto) 0.3 Absolute Neuts (auto) 2.4 Absolute Lymphs (auto) 0.44 L Nucleated RBC % 0 Differential Comment Diff Path Review May foll Platelet Estimate ADEQUATE RBC Morphology NORM C+C PT INR APTT D-Dimer Quant (PE/DVT) Sodium Potassium Chloride Carbon Dioxide Anion Gap BUN Creatinine Estim Creat Clear Calc Est GFR (MDRD) Af Amer Est GFR (MDRD) Non-Af BUN/Creatinine Ratio Glucose Lactic Acid Calcium Magnesium 2.1 Total Bilirubin AST ALT Alkaline Phosphatase Troponin I Total Protein Albumin Globulin Albumin/Globulin Ratio Procalcitonin 0.20 H Urine Color Urine Clarity Urine pH Ur Specific [place] Urine Protein Urine Glucose (UA) Urine Ketones Urine Occult Blood Urine Nitrite Urine Bilirubin Urine Urobilinogen Ur Leukocyte Esterase Urine RBC Urine WBC Ur Squamous Epith Cells Urine Bacteria Urine Mucus COVID-19 (AP[place]ORVA) - Other Studies Radiology: [] reviewed Other Studies: [] Route of nutrition/ use of supplements: [] Nutritional Intake: [] IV Site: [] Allen Catheter: [] - Physical Exam General: Alert, Oriented x3, Cooperative, No apparent distress HEENT: Atraumatic, PERRLA, EOMI Lungs: Diminished Cardiovascular: Regular rate, Regular Rhythm Abdomen: Soft, Non Tender, Non-Distended, Obese Extremities: Edema Skin: No rashes IV Site: Peripheral, without redness Musculoskeletal: No Tenderness to Palpation of Joints or Extremities Neurological: Cranial nerves II-XII grossly intact - Assessment/Plan Antibiotics: [] Assessment/Plan: [] Active and Suspected Problems (Last Updated 05/16/20 @ 05:[address] Timothy Crews MD) COVID-19 virus detected (Acute) Pneumonia due to 2019 novel coronavirus (Acute) covid with hypoxia - 2 weeks into her course, so likely not benefit from plasma or remdesivir. Cont dex, will change to po. Low suspicion for bacterial infection, PCT was 0.2, relatively asymptomatic. Will stop abx. On lovenox [address] showed no PE, mild elevated d-dimer. UAg neg. Will follow, thank you
[2020-05-17] VITALS (22 sets, daily range): BP systolic 53–186; BP diastolic 33–90; PULSE 59–105; RESP 14–45; TEMP 36.5–37.2; O2SAT 80–99
[2020-05-17] MEDS: Pramipexole Di-HCl 1 MG Tablet 1.5 MG PO ×2 (05:47→14:32)
--- NOTE | 2020-05-17 07:09 | PN_ITS ---
Patient Problems: Active and Suspected Problems (Last Updated 05/16/20 @ 05:[address] Timothy Crews MD) COVID-19 virus detected (Acute) Pneumonia due to 2019 novel coronavirus (Acute) Subjective: The patient was seen and examined at the bedside this morning. Events from the last 24 hours have been reviewed. The patient is currently afebrile, hemodynamically stable and maintaining appropriate oxygen saturations on 3 L/min via nasal cannula. The patient did report that she became short of breath this morning when attempting to look for her remote in the bed. She also reports the presence of a mild nonproductive cough. She is otherwise clinically stable. Objective: The patient's most recent lab work, culture data and imaging studies have all been personally reviewed. Coronavirus PCR was positive on May 15. Strep and urine Legionella antigens were negative. Blood and urine cultures are pending. - Physical Exam Vitals/I&O's: Vital Signs Temp Pulse Resp BP Pulse Ox 98.1 F 59 L 22 H 109/56 L 93 05/17/20 05:56 05/17/20 05:56 05/17/20 01:19 05/17/20 01:19 05/17/20 01:19 Oxygen Flow Rate (L/min) 3 Oxygen Delivery Method Nasal Cannula Weight: 180 lb 15.992 oz Body Mass Index (BMI) 32.1 Intake and Output for Last 24 Hours 05/15/20 05/16/20 05/17/20 23:59 23:59 23:59 Intake Total 1814 / 2094 460 / 460 Output Total 350 / 350 Balance 1814 110 / 110 General: Alert, Cooperative, No apparent distress, Confused HEENT: Atraumatic, Normocephalic Oral: No Gingival or Mucosal Lesions/ Ulcerations Neck: Supple, No Nodes, Trachea Midline Lungs: Diminished Cardiovascular: Regular rate, Regular Rhythm Abdomen: Bowel Sounds Present, Soft, Non Tender Extremities: No clubbing, No cyanosis, No edema Skin: No breakdown Musculoskeletal: No Tenderness to Palpation of Joints or Extremities Lymphatic: No Cervical, Supraclavicular, or Inguinal Adenopathy Neurological: Neuro grossly intact Psych/Mental Status: Normal Affect, Appropriate Labs (Last 48 Hours) 05/15/20 05/15/20 05/16/20 00:12 23:50 01:15 WBC 3.4 L RBC 4.01 L Hgb 12.2 Hct 35.3 L MCV 88.0 MCH 30.4 MCHC 34.6 RDW Std Deviation 40.8 RDW Coeff of [place] 12.7 Plt Count 154 MPV 10.3 Immature Gran % (Auto) 0.300 Neut % (Auto) 78.7 H Lymph % (Auto) 14.8 L [place] % (Auto) 5.9 Eos % (Auto) 0.0 Baso % (Auto) 0.3 Absolute Neuts (auto) 2.7 Absolute Lymphs (auto) 0.50 L Nucleated RBC % 0 Differential Comment SCANNED Diff Path Review Reviewed Platelet Estimate RBC Morphology PT INR APTT D-Dimer Quant (PE/DVT) Sodium Potassium Chloride Carbon Dioxide Anion Gap BUN Creatinine Estim Creat Clear Calc Est GFR (MDRD) Af Amer Est GFR (MDRD) Non-Af BUN/Creatinine Ratio Glucose Lactic Acid Calcium Magnesium Total Bilirubin AST ALT Alkaline Phosphatase Troponin I Total Protein Albumin Globulin Albumin/Globulin Ratio Procalcitonin Urine Color Straw Urine Clarity Clear Urine pH 6.0 Ur Specific [place] 1.010 Urine Protein 30 H Urine Glucose (UA) Normal Urine Ketones 15 H Urine Occult Blood 10 H Urine Nitrite Negative Urine Bilirubin Negative Urine Urobilinogen 1 H Ur Leukocyte Esterase 25 H Urine RBC 0-5 SEEN Urine WBC 0-5 SEEN Ur Squamous Epith Cells 0 SEEN Urine Bacteria RARE Urine Mucus 0 SEEN COVID-19 ([place]) Detected 05/16/20 05/16/20 05/16/20 01:15 01:15 01:15 WBC RBC Hgb Hct MCV MCH MCHC RDW Std Deviation RDW Coeff of [place] Plt Count MPV Immature Gran % (Auto) Neut % (Auto) Lymph % (Auto) [place] % (Auto) Eos % (Auto) Baso % (Auto) Absolute Neuts (auto) Absolute Lymphs (auto) Nucleated RBC % Differential Comment Diff Path Review Platelet Estimate RBC Morphology PT 13.8 INR 1.1 APTT 24.5 D-Dimer Quant (PE/DVT) 1.34 H* Sodium 134 L Potassium 3.1 L Chloride 99 Carbon Dioxide 23.0 Anion Gap 12 BUN 11 Creatinine 0.76 Estim Creat Clear Calc 41.45 Est GFR (MDRD) Af Amer 96 Est GFR (MDRD) Non-Af 79 BUN/Creatinine Ratio 14.5 Glucose 124 H Lactic Acid 1.3 Calcium 8.1 L Magnesium Total Bilirubin 0.60 AST 50 H ALT 43 Alkaline Phosphatase 59 Troponin I 0.018 Total Protein 6.0 L Albumin 2.6 L Globulin 3.4 Albumin/Globulin Ratio 0.8 L Procalcitonin Urine Color Urine Clarity Urine pH Ur Specific [place] Urine Protein Urine Glucose (UA) Urine Ketones Urine Occult Blood Urine Nitrite Urine Bilirubin Urine Urobilinogen Ur Leukocyte Esterase Urine RBC Urine WBC Ur Squamous Epith Cells Urine Bacteria Urine Mucus COVID-19 ([place]) 05/16/20 05/16/20 05/16/20 08:14 08:14 08:14 WBC 3.0 L RBC 4.20 Hgb 12.6 Hct 37.1 MCV 88.3 MCH 30.0 MCHC 34.0 RDW Std Deviation 41.7 RDW Coeff of [place] 12.9 Plt Count 170 MPV 9.9 Immature Gran % (Auto) 0.700 Neut % (Auto) 80.2 H Lymph % (Auto) 14.5 L [place] % (Auto) 4.0 Eos % (Auto) 0.3 Baso % (Auto) 0.3 Absolute Neuts (auto) 2.4 Absolute Lymphs (auto) 0.44 L Nucleated RBC % 0 Differential Comment Diff Path Review May foll Platelet Estimate ADEQUATE RBC Morphology NORM C+C PT INR APTT D-Dimer Quant (PE/DVT) Sodium Potassium Chloride Carbon Dioxide Anion Gap BUN Creatinine Estim Creat Clear Calc Est GFR (MDRD) Af Amer Est GFR (MDRD) Non-Af BUN/Creatinine Ratio Glucose Lactic Acid Calcium Magnesium 2.1 Total Bilirubin AST ALT Alkaline Phosphatase Troponin I Total Protein Albumin Globulin Albumin/Globulin Ratio Procalcitonin 0.20 H Urine Color Urine Clarity Urine pH Ur Specific [place] Urine Protein Urine Glucose (UA) Urine Ketones Urine Occult Blood Urine Nitrite Urine Bilirubin Urine Urobilinogen Ur Leukocyte Esterase Urine RBC Urine WBC Ur Squamous Epith Cells Urine Bacteria Urine Mucus COVID-19 ([place]) Microbiology 05/16/20 04:00 Blood Culture (Wb) - Anticubital Left Blood Culture - Preliminary 05/16/20 06:00 Urine, Clean Catch Streptococcus pneumoniae Antigen (M - Final 05/16/20 06:00 Urine, Clean Catch Legionella Antigen - Final Clinical Impression(s) from Imaging Studies Chest X-Ray 05/15/20 23:39 IMPRESSION: Bilateral pneumonia. Electronically Signed: Billy Cook MD at 1:39 EDT , Service support , Chest CTA 05/16/20 02:01 IMPRESSION: No pulmonary embolus or thoracic aortic dissection. Multifocal pneumonia right greater than left, to include viral pneumonia. Electronically Signed: Billy Cook MD at 3:22 EDT , Service support , Current Medications Acetaminophen (Acetaminophen 325 Mg Tablet) 650 mg PO Q6H PRN PRN PRN Reason: Pain Score 1-10/Temp > 100.7 F Carbidopa/Levodopa (Carbidopa/Levodopa 25/250 Tablet) 1 tablet PO 4X/DAY [facility] Last Admin: 05/16/20 19:50 Dose: 1 tablet Documented by: Dexamethasone (Dexamethasone 4 Mg Tablet) 6 mg PO DAILY@0800 [facility] Stop: 05/25/20 08:01 Enoxaparin Sodium (Enoxaparin 30 Mg/0.3 Ml Syringe) 30 mg SC BID [facility] Last Admin: 05/16/20 23:03 Dose: 30 mg Documented by: Guaifenesin (Guaifenesin 1,200 Mg Tablet) 1,200 mg PO BID [facility] Last Admin: 05/16/20 23:03 Dose: 1,200 mg Documented by: Sodium Chloride () 250 mls @ 15 mls/hr IV .[id number] PRN PRN Reason: Saline Flush Sodium Chloride () 250 mls @ 15 mls/hr IV .[id number] PRN PRN Reason: Additional IVPB Infusion Melatonin (Melatonin 3 Mg Tablet) 3 mg PO QHS PRN PRN PRN Reason: INSOMNIA Ondansetron HCl (Ondansetron 4 Mg/2 Ml Vial) 4 mg IV Q8H PRN PRN PRN Reason: NAUSEA/VOMITING Pramipexole Dihydrochloride (Pramipexole Di-Hcl 1 Mg Tablet) 1.5 mg PO TID [facility] Last Admin: 05/17/20 05:47 Dose: 1.5 mg Documented by: Rasagiline (Rasagiline Mesylate 1 Mg Tablet) 1 mg PO DAILY [facility] Last Admin: 05/16/20 09:47 Dose: 1 mg Documented by: Sodium Chloride (0.9% Saline Lock 10 Ml Syringe) 10 - 40 ml IV UD PRN PRN Reason: SALINE FLUSH Last Admin: 05/16/20 15:49 Dose: 10 ml Documented by: Medical Necessity - Tobacco Use Smoking Status: Never smoker Assessment/Plan All Active Problems (Last Updated 05/16/20 @ 05:[address] Timothy Crews MD) COVID-19 virus detected (Acute) Pneumonia due to 2019 novel coronavirus (Acute) RECOMMENDATIONS: 1. Wean supplemental oxygen to maintain saturations at or above 90%. 2. Continue Decadron 6 mg daily x10 days. 3. Defer antimicrobial management to infectious diseases. 4. I do anticipate the patient will require supplemental oxygen at the time of her discharge from the hospital. IMPRESSIONS: 1. Acute hypoxemic respiratory failure secondary to COVID-19 pneumonia The patient presented to the hospital with Covid-like symptoms of approximately 2 weeks duration. She is currently maintaining appropriate oxygen saturations on nasal cannula supplemental oxygen. Given the patient's duration of symptoms, she is unlikely to benefit from remdesivir or convalescent plasma. Plan to wean supplemental oxygen to maintain saturations at or above 90%. Continue Decadron 6 mg daily x10 days. Encourage incentive spirometer use and mobilize patient as tolerated. 2. Advanced age/Parkinson's disease Complicates care, management, recovery and prognosis. Continue home medications as indicated. This note was generated with [employer] dictation software. It may contain incorrect words, spelling, and punctuation that were not noted in checking the note before signing. Inpatient E&M: 80697 Subs Hosp L2
[2020-05-17 07:22] LABS: Absolute Neutrophil Count 4.8 X10^3/uL (2.0-7.7); Hematocrit 41.1 % (37-47); Hemoglobin 13.8 g/dL (12.0-15.0); Lymphocyte % 10.8 % (19-41); Mean Corp Hgb Conc 33.6 g/dL (32-36); Mean Corpuscular Hgb 30.4 pg (27.0-32.0); Mean Corpuscular Volume 90.5 fL (81-99); Mean Platelet Vol. 10.1 fl (6.2-12.0); Monocyte# 0.15 X10^3/uL; Monocyte% 2.7 % (0-10); NRBC Flagged by Analyzer 0 % (0-5); Neutrophil # 4.76 X10^3/uL (2.7-7.7); Neutrophil % 86.1 % (47-70); POSITIVE DIFFERENTIAL YES; Platelet Count 240 K/mm3 (150-450); RBC Distribution Width CV 12.8 % (11.6-14.6); RBC Distribution Width SD 42.5 fl (35.1-43.9); Red Blood Count 4.54 M/mm3 (4.2-5.4); White Blood Count 5.5 K/mm3 (4.4-11.0)
[2020-05-17 07:29] LABS: Differential Indicated SCAN CRITERIA MET
[2020-05-17 07:41] LABS: Differential Comment SCANNED
[2020-05-17 07:48] LABS: ALB/GLOB Ratio 0.7 RATIO (0.9-2.4); AST(SGOT) 39 U/L (15-37); Alanine Aminotransfer ALT/SGPT 45 U/L (13-56); Albumin, Serum 2.6 g/dL (3.2-5.0); Alkaline Phosphatase 61 U/L (45-117); Anion Gap 6 (5-15); BUN 15 mg/dL (7-18); BUN/Creat Ratio 19.7 RATIO (10-20); Calcium,Total 8.7 mg/dL (8.5-10.1); Chloride 104 mmol/L (98-107); Creatinine, Serum 0.76 mg/dL (0.55-1.02); EST Glomerular Filtration Rate 79 mL/min (>60); Est Glom Filt Rate - Afr Amer 96 mL/min (>60); Estimated Creatinine Clearance 41.45 ml/min; Globulin 3.8 g/dL (2.2-4.2); Glucose 108 mg/dL (74-106); Potassium 3.6 mmol/L (3.5-5.1); Protein, Total 6.4 g/dL (6.4-8.2); Sodium Level 136 mmol/L (136-145)
[2020-05-17] MEDS: Enoxaparin 30 MG/0.3 ML Syringe SC ×2 (08:43→22:44)
[2020-05-17] MEDS: guaiFENesin 1,200 MG Tablet 1200 MG PO (08:43)
[2020-05-17] MEDS: dexAMETHasone 4 MG Tablet 6 MG PO (08:44)
[2020-05-17] MEDS: Carbidopa/Levodopa 25/250 Tablet PO ×3 (08:44→17:03)
[2020-05-17 12:11] LABS: Allen Test Positive; Base Excess 1 mmol/L (-2 to +2); Bicarbonate 24.4 mmol/L (22-26); Blood Gas Specimen Type ART; O2 Delivery Device Cannula; PO2 51 mmHG (75-100); SITE R Radial; SO2 90 % (95-99); Total Carbon Dioxide 25 mmol/L; pCO2 30.6 mmHg (35-45); pH 7.51 (7.35-7.45)
[2020-05-17 13:39] LABS: Pathologist Review Reviewed
--- NOTE | 2020-05-17 14:59 | PN_ITS ---
Patient Problems: Active and Suspected Problems (Last Updated 05/16/20 @ 05:[address] Timothy Crews MD) COVID-19 virus detected (Acute) Pneumonia due to 2019 novel coronavirus (Acute) Reason for Visit: Follow-up on acute COVID 19 pneumonia/hypoxia Subjective: Patient was seen and examined. She is more confused today. Overnight, she was put on oxygen. She however has needed a significant amount of oxygen; 8L. She initially was taking her nasal canula oxygen off and not keeping it on. She is alert oriented to self and not to place or time. I spoke to Gela, her [id number] and primary caregiver who stated that patient has underlying cognitive impairment and confusion even at home. Vitals/I&O's: Vital Signs Temp Pulse Resp BP Pulse Ox 97.8 F 79 28 H 113/85 H 93 05/17/20 14:00 05/17/20 14:00 05/17/20 14:00 05/17/20 14:00 05/17/20 14:00 Oxygen Flow Rate (L/min) 7 Oxygen Delivery Method Nasal Cannula Weight: 82.1 kg Body Mass Index (BMI) 32.1 Intake and Output for Last 24 Hours 05/15/20 05/16/20 05/17/20 23:59 23:59 23:59 Intake Total 1814 460 / 460 Output Total 350 / 350 Balance 1814 110 / 110 General: Alert, Cooperative, Confused, - - in mild respiratory distress, dehydrated HEENT: Atraumatic, PERRLA, EOMI, Normocephalic Oral: Moist Mucosa Neck: Supple Lungs: Diminished Cardiovascular: Regular rate, Regular Rhythm, Normal S1, Normal S2, No murmurs Abdomen: Bowel Sounds Present, Soft, Non Tender, Non-Distended, No Hepato- splenomegaly Extremities: No edema Skin: No rashes Musculoskeletal: No Tenderness to Palpation of Joints or Extremities Lymphatic: No Cervical, Supraclavicular, or Inguinal Adenopathy Neurological: Cranial nerves II-XII grossly intact Psych/Mental Status: Normal Affect, Appropriate Microbiology Past 72 Hours 05/16/20 00:12 Urine Catheter - Catheter Urine Culture - Preliminary Culture exhibits no growth. 05/16/20 04:00 Blood Culture (Wb) - Anticubital Left Blood Culture - Preliminary Gram negative sylvia 05/16/20 06:00 Urine, Clean Catch Streptococcus pneumoniae Antigen (M - Final 05/16/20 06:00 Urine, Clean Catch Legionella Antigen - Final Laboratory Results 05/16/20 08:14: Diff Path Review Reviewed 05/17/20 06:45: Sodium 136, Potassium 3.6, Chloride 104, Carbon Dioxide 26.0, Anion Gap 6, BUN 15, Creatinine 0.76, Estim Creat Clear Calc 41.45, Est GFR (MDRD) Af Amer 96, Est GFR (MDRD) Non-Af 79, BUN/Creatinine Ratio 19.7, Glucose 108 H, Calcium 8.7, Total Bilirubin 0.60, AST 39 H, ALT 45, Alkaline Phosphatase 61, Total Protein 6.4, Albumin 2.6 L, Globulin 3.8, Albumin/Globulin Ratio 0.7 L 05/17/20 06:45: WBC 5.5, RBC 4.54, Hgb 13.8, Hct 41.1, MCV 90.5, MCH 30.4, MCHC 33.6, RDW Std Deviation 42.5, RDW Coeff of [place] 12.8, Plt Count 240, MPV 10.1, Immature Gran % (Auto) 0.400, Neut % (Auto) 86.1 H, Lymph % (Auto) 10.8 L, [place] % (Auto) 2.7, Eos % (Auto) 0.0, Baso % (Auto) 0.0, Absolute Neuts (auto) 4.8, Absolute Lymphs (auto) 0.60 L, Nucleated RBC % 0, Differential Comment SCANNED 05/17/20 12:00: Specimen Type ART, Sample Site R Radial, pH 7.51 H, Bicarbonate Actual 24.4, Total CO2 25, Base Excess 1, O2 Saturation 90 L, ABG pCO2 30.6 L, ABG pO2 51 L, Cameron Test Positive, O2 Delivery Device Cannula Current Medications Acetaminophen (Acetaminophen 325 Mg Tablet) 650 mg PO Q6H PRN PRN PRN Reason: Pain Score 1-10/Temp > 100.7 F Albuterol Sulfate (Albuterol Ih 8.5 Gm (Proair) Inhaler (200 Puffs)) 2 puff INHALATION Q4H PRN PRN PRN Reason: SOB &/OR WHEEZING Carbidopa/Levodopa (Carbidopa/Levodopa 25/250 Tablet) 1 tablet PO 4X/DAY [facility] Last Admin: 05/17/20 14:32 Dose: 1 tablet Documented by: Dexamethasone (Dexamethasone 4 Mg Tablet) 6 mg PO DAILY@0800 [facility] Stop: 05/25/20 08:01 Last Admin: 05/17/20 08:44 Dose: 6 mg Documented by: Enoxaparin Sodium (Enoxaparin 30 Mg/0.3 Ml Syringe) 30 mg SC BID [facility] Last Admin: 05/17/20 08:43 Dose: 30 mg Documented by: Guaifenesin (Guaifenesin 1,200 Mg Tablet) 1,200 mg PO BID [facility] Last Admin: 05/17/20 08:43 Dose: 1,200 mg Documented by: Sodium Chloride () 250 mls @ 15 mls/hr IV .[id number] PRN PRN Reason: Saline Flush Sodium Chloride () 250 mls @ 15 mls/hr IV .[id number] PRN PRN Reason: Additional IVPB Infusion Piperacillin Sod/Tazobactam (Sod 3.375 gm/ Sodium Chloride) 50 mls @ 12.5 mls/hr IV Q8 [facility] Melatonin (Melatonin 3 Mg Tablet) 3 mg PO QHS PRN PRN PRN Reason: INSOMNIA Ondansetron HCl (Ondansetron 4 Mg/2 Ml Vial) 4 mg IV Q8H PRN PRN PRN Reason: NAUSEA/VOMITING Pramipexole Dihydrochloride (Pramipexole Di-Hcl 1 Mg Tablet) 1.5 mg PO TID [facility] Last Admin: 05/17/20 14:32 Dose: 1.5 mg Documented by: Rasagiline (Rasagiline Mesylate 1 Mg Tablet) 1 mg PO DAILY [facility] Last Admin: 05/17/20 08:44 Dose: 1 mg Documented by: Sodium Chloride (0.9% Saline Lock 10 Ml Syringe) 10 - 40 ml IV UD PRN PRN Reason: SALINE FLUSH Last Admin: 05/16/20 15:49 Dose: 10 ml Documented by: STROKE Vital Signs/Narrative: Vital Signs Temp Pulse Resp BP Pulse Ox 05/17/20 14:00 97.8 F 79 28 H 113/85 H 93 05/17/20 13:03 97.9 F 68 28 H 145/35 H 90 Medical Necessity - Tobacco Use Smoking Status: Never smoker Assessment/Plan All Active Problems (Last Updated 05/16/20 @ 05:[address] Timothy Crews MD) COVID-19 virus detected (Acute) Pneumonia due to 2019 novel coronavirus (Acute) 1. Acute metabolic encephalopathy/delirium secondary to COVID-19 infection/pneumonia/hypoxia and bacteremia, worsening Will continue to monitor Trial of haldol 1mg po x 1 Continue treatment of above 2. Acute hypoxic respiratory failure secondary to #1 Patient is on nasal canula oxygen, breathing treatments 3. Acute COVID-19 infection/pneumonia, severe with hypoxia CTA was negative for acute PE, showed multifocal infiltrates On IV dexamethasone and redemsivir. Not a candidate for plasma. 4. Gram neg bacteremia, started on IV Zosyn Will continue to follow cultures ID following 5. 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 DVT PPx- Lovenox BID Inpatient E&M: 88477 Subs Hosp L3
--- NOTE | 2020-05-17 16:29 | PN.ID_ITS ---
Patient Problems: Active and Suspected Problems (Last Updated 05/16/20 @ 05:[address] Timothy Crews MD) COVID-19 virus detected (Acute) Pneumonia due to 2019 novel coronavirus (Acute) Subjective: Feeling not much better. No fever. - Physical Exam Vitals/I&O's: Vital Signs Temp Pulse Resp BP Pulse Ox 97.7 F L 86 40 H 125/74 H 91 05/17/20 15:05 05/17/20 15:05 05/17/20 15:05 05/17/20 15:05 05/17/20 15:05 Oxygen Flow Rate (L/min) 7 Oxygen Delivery Method Nasal Cannula Weight: 82.1 kg Body Mass Index (BMI) 32.1 Intake and Output for Last 24 Hours 05/15/20 05/16/20 05/17/20 23:59 23:59 23:59 Intake Total 1814 460 / 460 Output Total 350 / 350 Balance 1814 110 / 110 General: Alert, Cooperative, No apparent distress Lungs: Diminished Cardiovascular: Regular rate, Regular Rhythm Abdomen: Soft, Non Tender, Non-Distended Skin: No rashes Microbiology Past 72 Hours 05/16/20 00:12 Urine Catheter - Catheter Urine Culture - Preliminary Culture exhibits no growth. 05/16/20 04:00 Blood Culture (Wb) - Anticubital Left Blood Culture - Preliminary Gram negative sylvia 05/16/20 06:00 Urine, Clean Catch Streptococcus pneumoniae Antigen (M - Final 05/16/20 06:00 Urine, Clean Catch Legionella Antigen - Final Laboratory Results 05/16/20 08:14: Diff Path Review Reviewed 05/17/20 06:45: Sodium 136, Potassium 3.6, Chloride 104, Carbon Dioxide 26.0, Anion Gap 6, BUN 15, Creatinine 0.76, Estim Creat Clear Calc 41.45, Est GFR (MDRD) Af Amer 96, Est GFR (MDRD) Non-Af 79, BUN/Creatinine Ratio 19.7, Glucose 108 H, Calcium 8.7, Total Bilirubin 0.60, AST 39 H, ALT 45, Alkaline Phosphatase 61, Total Protein 6.4, Albumin 2.6 L, Globulin 3.8, Albumin/Globulin Ratio 0.7 L 05/17/20 06:45: WBC 5.5, RBC 4.54, Hgb 13.8, Hct 41.1, MCV 90.5, MCH 30.4, MCHC 33.6, RDW Std Deviation 42.5, RDW Coeff of [place] 12.8, Plt Count 240, MPV 10.1, Immature Gran % (Auto) 0.400, Neut % (Auto) 86.1 H, Lymph % (Auto) 10.8 L, Power % (Auto) 2.7, Eos % (Auto) 0.0, Baso % (Auto) 0.0, Absolute Neuts (auto) 4.8, A bsolute Lymphs (auto) 0.60 L, Nucleated RBC % 0, Differential Comment SCANNED 05/17/20 12:00: Specimen Type ART, Sample Site R Radial, pH 7.51 H, Bicarbonate Actual 24.4, Total CO2 25, Base Excess 1, O2 Saturation 90 L, ABG pCO2 30.6 L, ABG pO2 51 L, Cameron Test Positive, O2 Delivery Device Cannula Current Medications Acetaminophen (Acetaminophen 325 Mg Tablet) 650 mg PO Q6H PRN PRN PRN Reason: Pain Score 1-10/Temp > 100.7 F Albuterol Sulfate (Albuterol Ih 8.5 Gm (Proair) Inhaler (200 Puffs)) 2 puff INHALATION Q4H PRN PRN PRN Reason: SOB &/OR WHEEZING Carbidopa/Levodopa (Carbidopa/Levodopa 25/250 Tablet) 1 tablet PO 4X/DAY [facility] Last Admin: 05/17/20 14:32 Dose: 1 tablet Documented by: Dexamethasone (Dexamethasone 4 Mg Tablet) 6 mg PO DAILY@0800 [facility] Stop: 05/25/20 08:01 Last Admin: 05/17/20 08:44 Dose: 6 mg Documented by: Enoxaparin Sodium (Enoxaparin 30 Mg/0.3 Ml Syringe) 30 mg SC BID [facility] Last Admin: 05/17/20 08:43 Dose: 30 mg Documented by: Guaifenesin (Guaifenesin 1,200 Mg Tablet) 1,200 mg PO BID [facility] Last Admin: 05/17/20 08:43 Dose: 1,200 mg Documented by: Sodium Chloride () 250 mls @ 15 mls/hr IV .[id number] PRN PRN Reason: Saline Flush Sodium Chloride () 250 mls @ 15 mls/hr IV .[id number] PRN PRN Reason: Additional IVPB Infusion Piperacillin Sod/Tazobactam (Sod 3.375 gm/ Sodium Chloride) 50 mls @ 12.5 mls/hr IV Q8 [facility] Melatonin (Melatonin 3 Mg Tablet) 3 mg PO QHS PRN PRN PRN Reason: INSOMNIA Ondansetron HCl (Ondansetron 4 Mg/2 Ml Vial) 4 mg IV Q8H PRN PRN PRN Reason: NAUSEA/VOMITING Pramipexole Dihydrochloride (Pramipexole Di-Hcl 1 Mg Tablet) 1.5 mg PO TID [facility] Last Admin: 05/17/20 14:32 Dose: 1.5 mg Documented by: Rasagiline (Rasagiline Mesylate 1 Mg Tablet) 1 mg PO DAILY [facility] Last Admin: 05/17/20 08:44 Dose: 1 mg Documented by: Sodium Chloride (0.9% Saline Lock 10 Ml Syringe) 10 - 40 ml IV UD PRN PRN Reason: SALINE FLUSH Last Admin: 05/16/20 15:49 Dose: 10 ml Documented by: Medical Necessity - Tobacco Use Smoking Status: Never smoker Route of nutrition/ use of supplements: [] Nutritional Intake: [] IV Site: [] Allen Catheter: [] - Assessment/Plan Antibiotics: [] Assessment/Plan: [] Active and Suspected Problems (Last Updated 05/16/20 @ 05:[address] Timothy Crews MD) COVID-19 virus detected (Acute) Pneumonia due to 2019 novel coronavirus (Acute) covid with hypoxia - 2 weeks into her course, so likely not benefit from plasma or remdesivir. Cont dex. PCT was 0.2, relatively asymptomatic. On lovenox [address] showed no PE, mild elevated d-dimer. UAg neg. GNR bacteremia - agree with zosyn, unclear source, denies abd pain or dysuria. Also GPC seen on anaerobic gram stain. Will follow
[2020-05-17] MEDS: Haloperidol 1 MG Tablet PO (17:03)
[2020-05-17] MEDS: Furosemide 40 MG Tablet PO (17:03)
[2020-05-17] MEDS: Ceftriaxone 1 GM Vial IM (18:35)
[2020-05-17] MEDS: LORazepam 2 MG/ML Syringe IM (19:55)
--- NOTE | 2020-05-17 20:40 | RAD_ITS ---
HISTORY: SOB ADDITIONAL HISTORY: None provided. EXAMINATION/TECHNIQUE: XR Chest 1 View AP/PA Number of images including paperwork: 1 COMPARISON: 05/16/2020 FINDINGS: LUNGS AND PLEURA: Multifocal bilateral infiltrates with mild apparent increase. No sizable pleural effusion or pneumothorax. CARDIAC SILHOUETTE: Stable. MEDIASTINUM AND MY: Stable. UPPER ABDOMEN: Unremarkable. SKELETON AND SOFT TISSUES: No acute skeletal findings. Degenerative changes. OTHER DEVICES AND HARDWARE: None. RAD/Chest 1 View (Portable) IMPRESSION: Mild increase in bilateral infiltrates. at 2221 Reported and signed by: Indigo Gupta MD Electronically Signed: Indigo Gupta MD at 22:20 EDT Tel , Service support ,
[2020-05-17] MEDS: 0.9% Saline Lock 10 ML Syringe IV ×2 (20:43→22:05)
[2020-05-17] MEDS: LORazepam 2 MG/ML Syringe 1 MG IV (20:45)
[2020-05-17] MEDS: Midazolam 2 MG/2 ML Syringe IV (21:04)
[2020-05-17] MEDS: Etomidate 20 MG/10 ML Vial 25 MG IV (21:05)
[2020-05-17] MEDS: Propofol 10MG/Ml 1,000 MG/100 ML Bottle 4.9 MG CONT INF (21:10)
--- NOTE | 2020-05-17 21:12 | RAD_ITS ---
HISTORY: ETT PLACEMENT ADDITIONAL HISTORY: None provided. EXAMINATION/TECHNIQUE: XR Chest 1 View AP/PA Number of images including paperwork: 2 COMPARISON: 05/17/2020 8:40 PM FINDINGS: LUNGS AND PLEURA: Extensive bilateral infiltrates, continued to increase. No sizable pleural effusion or pneumothorax. CARDIAC SILHOUETTE: Stable. MEDIASTINUM AND MY: Stable. UPPER ABDOMEN: Unremarkable. SKELETON AND SOFT TISSUES: No acute skeletal findings. Degenerative changes. OTHER DEVICES AND HARDWARE: Endotracheal tube terminates above the fco. Gastric tube in place with side port visualized over the stomach. RAD/Chest 1 View (Portable) IMPRESSION: Increasing bilateral infiltrates. Endotracheal tube in place. at 2222 Reported and signed by: Indigo Gupta MD Electronically Signed: Indigo Gupta MD at 22:21 EDT Tel , Service support ,
--- NOTE | 2020-05-17 21:15 | RAD_ITS ---
STUDY: X-RAY - ABDOMEN/PELVIS REASON FOR EXAM: Female, 74 years old. Orogastric tube placement. TECHNIQUE: AP portable lower chest upper abdomen. COMPARISON: Chest x-ray May 17, 2020 at 8:40 PM. FINDINGS: Patchy bilateral airspace opacities right greater than left unchanged. No pleural effusions. Enteric tube tip in the left upper quadrant in the gastric fundus/proximal gastric body. There is an unremarkable bowel gas pattern. There is no demonstrated free abdominal air. The visualized liver, spleen and kidneys are grossly normal in size and morphology. Normal soft tissue structures. Osseous structures unchanged. RAD/Abdomen Single View IMPRESSION: Enteric tube tip in the gastric fundus. Bilateral lung opacities right greater than left unchanged. Electronically Signed: Billy Cook MD at 23:14 EDT , Service support ,
--- NOTE | 2020-05-17 21:21 | PCM.PN.BLA ---
Progress Note Rapid response called because patient was very dyspneic, tachypneic, restless and very anxious. She could not keep the BiPAP mask on her face. She was breathing very fast, more than 50 breaths/min. She was tachycardic. Attempt to get ABG failed because patient was very agitated. Chest x-ray done, revealed increasing and worsening bilateral lung infiltrate more on the right lung. Decision was made to transfer patient to ICU and to intubate and start mechanical ventilation. Patient is DNR CCA with intubation.. Patient was transferred to ICU. She continued to be very short of breath, anxious, agitated and not able to keep the BiPAP mask on. Procedure report: Patient received 2 mg of IV Versed and 25 mg of etomidate IV. With glidescope, I was able to visualize the vocal cords, 7.5 ETT was inserted. There was a color change on capnography. Patient was tachycardic, blood pressure was slightly elevated, pulse ox was in the high 80s percent with the Ambu bag. Started on mechanical ventilation. Patient was started on IV fentanyl and propofol for sedation. Dr. Peres was notified. Plan: Stat CBC, BMP, IV Lasix x1. STROKE Vital Signs/Narrative: Vital Signs Temp Pulse Resp BP BP Pulse Ox 05/17/20 20:32 105 H 45 H 185/87 H 86 05/17/20 19:58 98.7 F 65 45 H 186/75 H 91 05/17/20 18:58 98.9 F 66 30 H 149/74 H 95 Procedures: [id number] Insert Emergency Airway
[2020-05-17 21:59] LABS: Absolute Lymphocyte Count 0.35 X10^3/uL (0.83-4.51); Absolute Neutrophil Count 7.3 X10^3/uL (2.0-7.7); Basophil# 0.01 X10^3/uL; Basophil% 0.1 % (0-1); Differential Indicated SCAN CRITERIA MET; Hematocrit 40.5 % (37-47); Hemoglobin 13.9 g/dL (12.0-15.0); Lymphocyte # 0.35 X10^3/ul (4.0); Lymphocyte % 4.4 % (19-41); Mean Corp Hgb Conc 34.3 g/dL (32-36); Mean Corpuscular Hgb 30.5 pg (27.0-32.0); Mean Platelet Vol. 9.8 fl (6.2-12.0); Monocyte# 0.18 X10^3/uL; Monocyte% 2.3 % (0-10); NRBC Flagged by Analyzer 0 % (0-5); Neutrophil # 7.32 X10^3/uL (2.7-7.7); Neutrophil % 92.6 % (47-70); POSITIVE DIFFERENTIAL YES; POSITIVE MORPHOLOGY YES; Platelet Count 293 K/mm3 (150-450); RBC Distribution Width CV 12.8 % (11.6-14.6); Red Blood Count 4.55 M/mm3 (4.2-5.4); White Blood Count 7.9 K/mm3 (4.4-11.0)
[2020-05-17 22:19] LABS: Platelet Estimate ADEQUATE (ADEQ)
[2020-05-17] MEDS: LORazepam 2 MG/ML Syringe IV (22:22)
[2020-05-17 22:35] LABS: Anion Gap 12 (5-15); BUN 18 mg/dL (7-18); BUN/Creat Ratio 16.2 RATIO (10-20); Calcium,Total 8.5 mg/dL (8.5-10.1); Chloride 102 mmol/L (98-107); Creatinine, Serum 1.11 mg/dL (0.55-1.02); EST Glomerular Filtration Rate 51 mL/min (>60); Est Glom Filt Rate - Afr Amer 62 mL/min (>60); Estimated Creatinine Clearance 37.34 ml/min; Glucose 155 mg/dL (74-106); Potassium 3.6 mmol/L (3.5-5.1); Sodium Level 136 mmol/L (136-145)
--- NOTE | 2020-05-17 22:46 | NURSING ---
Daughter-in law Kenya Hamilton called and updated about patients transfer to ICU 07.
[2020-05-17 22:49] LABS: CPK Total, Creatine Kinase 349 U/L (26-192); Triglycerides 126 mg/dL
--- NOTE | 2020-05-17 23:09 | NURSING ---
At beginning of shift during rounds this RN and secondary RN Dorothy went into assess patient. Patient breathing very heaving and rapid and very anxious on NC. This RN changed patient to 50% venti mask. RT came to the bedside and decision was made to change 02 supply to non-rebreather. data communications software consultant paged MD about patients current respiratory status and new orders received. See orders. New orders completed and patient still very anxious and rapid breathing. Sp02 still low. Decision made a call NEEDLEWORKER. MD came to bedside, CXR ordered STAT along with blood gases. Patient placed on BIPAP. See all orders. CXR completed and MD read at bedside and decision made a transfer patient to ICU room 7. Dayshift RN called report. Patient remained on BIPAP while transfered to the ICU. MD intubated at bedside. Family called notified about transfer.
[2020-05-17 23:45] LABS: Base Excess 0 mmol/L (-2 to +2); Bicarbonate 23.4 mmol/L (22-26); Blood Gas Specimen Type ART; FI02 100; Mode AC; O2 Delivery Device Adult Vent; PEEP 10; PO2 106 mmHG (75-100); RR 14; SITE L Radial; SO2 99 % (95-99); Total Carbon Dioxide 24 mmol/L; Vt 450; pH 7.49 (7.35-7.45)
--- NOTE | 2020-05-17 23:54 | NURSING ---
patient received from PCU to ICU at 2054 Dr Nicole PCU staff and ICu staff at bedside for emergent intubation 2mg versed given 2103 25mg etomidate given 2104 7.5 ETT placed 24 @ lip 2105 +color change breath sounds equal bilat
[2020-05-18] VITALS (75 sets, daily range): BP systolic 54–202; BP diastolic 32–100; PULSE 73–106; RESP 14–23; TEMP 35.9–37.4; O2SAT 92–98; BMI 32.2
--- NOTE | 2020-05-18 01:52 | EKG12_ITS ---
Test Reason : IRREGULAR HR Blood Pressure : / mmHG Vent. Rate : 091 BPM Atrial Rate : 091 BPM P-R Int : 124 ms QRS Dur : 080 ms QT Int : 352 ms P-R-T Axes : 039 057 044 degrees QTc Int : 432 ms Normal sinus rhythm Nonspecific ST abnormality Abnormal ECG When compared with ECG of 16-MAY-2020 00:01, Premature atrial complexes are no longer Present Confirmed by SARATH ASHRAF, TIGIST ([id number]), tape editor CHRISTEL SAMAYOA ([id number]) on 06/23/2020 4:10:12 PM Referred By: Marina Tom Confirmed By:CROW CLEMENS MD
--- NOTE | 2020-05-18 01:53 | EKG12_ITS ---
Test Reason : IRREGULAR HR Blood Pressure : / mmHG Vent. Rate : 092 BPM Atrial Rate : 093 BPM P-R Int : 126 ms QRS Dur : 078 ms QT Int : 346 ms P-R-T Axes : 037 060 057 degrees QTc Int : 427 ms Normal sinus rhythm ST abnormality, possible digitalis effect Abnormal ECG When compared with ECG of 18-MAY-2020 01:52, MANUAL COMPARISON REQUIRED, DATA IS UNCONFIRMED Confirmed by SARATH ASHRAF, TIGIST ([id number]), acquisition editor CHRISTEL SAMAYOA ([id number]) on 06/23/2020 4:10:07 PM Referred By: Marina Tom Confirmed By:CROW CLEMENS MD
[2020-05-18 03:31] LABS: Absolute Lymphocyte Count 0.85 X10^3/uL (0.83-4.51); Absolute Neutrophil Count 8.3 X10^3/uL (2.0-7.7); Hemoglobin 13.7 g/dL (12.0-15.0); Lymphocyte # 0.85 X10^3/ul (4.0); Mean Corp Hgb Conc 33.4 g/dL (32-36); Mean Corpuscular Hgb 29.7 pg (27.0-32.0); Mean Corpuscular Volume 88.7 fL (81-99); Mean Platelet Vol. 9.9 fl (6.2-12.0); Monocyte# 0.23 X10^3/uL; Monocyte% 2.4 % (0-10); NRBC Flagged by Analyzer 0 % (0-5); Neutrophil # 8.32 X10^3/uL (2.7-7.7); Neutrophil % 87.8 % (47-70); POSITIVE MORPHOLOGY YES; Platelet Count 328 K/mm3 (150-450); RBC Distribution Width CV 13.1 % (11.6-14.6); Red Blood Count 4.62 M/mm3 (4.2-5.4); White Blood Count 9.5 K/mm3 (4.4-11.0)
[2020-05-18 03:38] LABS: Differential Indicated SCAN CRITERIA MET
[2020-05-18] MEDS: TITRATION PARAMETER CHANGE 1 EACH IV ×2 (03:42→04:48)
[2020-05-18] MEDS: 0.9% Saline Lock 10 ML Syringe IV ×2 (03:43→20:10)
[2020-05-18] MEDS: Furosemide 20 MG/2 ML VIAL IV (03:43)
[2020-05-18] MEDS: Carbidopa/Levodopa 25/250 Tablet GT ×4 (03:54→20:30)
[2020-05-18 04:07] LABS: Anion Gap 12 (5-15); BUN 21 mg/dL (7-18); BUN/Creat Ratio 15.3 RATIO (10-20); Calcium,Total 8.5 mg/dL (8.5-10.1); Chloride 100 mmol/L (98-107); Creatinine, Serum 1.37 mg/dL (0.55-1.02); EST Glomerular Filtration Rate 40 mL/min (>60); Est Glom Filt Rate - Afr Amer 49 mL/min (>60); Estimated Creatinine Clearance 30.25 ml/min; Glucose 159 mg/dL (74-106); Potassium 3.6 mmol/L (3.5-5.1); Sodium Level 136 mmol/L (136-145)
[2020-05-18 04:09] LABS: Atypical Lymphocyte RARE %; Differential Comment SCANNED; Platelet Estimate ADEQUATE (ADEQ)
--- NOTE | 2020-05-18 07:25 | PCM.PN.HOSP ---
Patient Problems: Active and Suspected Problems (Last Updated 05/16/20 @ 05:[address] Timothy Crews MD) COVID-19 virus detected (Acute) Pneumonia due to 2019 novel coronavirus (Acute) Reason for Visit: Follow-up on acute COVID 19 pneumonia/hypoxia Subjective: Patient was seen and examined. Events overnight noted. She was intubated last evening for worsening respiratory distress. She is currently on the mechanical ventilator. She also developed hypotension, requiring use of low-dose Levophed. Objective: Physical exam: General: Sedated, intubated, on mechanical ventilator HEENT: Atraumatic, PERRLA, EOMI, Normocephalic Oral: Moist Mucosa Neck: Supple Lungs: Diminished Cardiovascular: Regular rate, Regular Rhythm, Normal S1, Normal S2, No murmurs Abdomen: Bowel Sounds Present, Soft, Non Tender, Non-Distended, No Hepato-splenomegaly Extremities: No edema Skin: No rashes Musculoskeletal: No Tenderness to Palpation of Joints or Extremities Lymphatic: No Cervical, Supraclavicular, or Inguinal Adenopathy Neurological: Cranial nerves II-XII grossly intact Psych/Mental Status: Normal Affect, Appropriate Vitals/I&O's: Vital Signs Temp Pulse Resp BP Pulse Ox 99.3 F H 85 19 H 95/54 L 94 05/18/20 04:00 05/18/20 07:00 05/18/20 07:00 05/18/20 07:00 05/18/20 07:00 Oxygen Flow Rate (L/min) 15 Oxygen Delivery Method Mechanical Ventilator Weight: 82.6 kg Body Mass Index (BMI) 32.1 Intake and Output for Last 24 Hours 05/16/20 05/17/20 05/18/20 23:59 23:59 23:59 Intake Total 1814 992.64 / 997.97 263.76 / 263.76 Output Total 650 / 950 450 / 450 Balance 1814 342.64 / 47.97 -186.24 / -186.24 Microbiology Past 72 Hours 05/15/20 23:56 Blood Culture (Wb) - Right Forearm Blood Culture - Preliminary No growth in 48 hours. 05/16/20 00:12 Urine Catheter - Catheter Urine Culture - Preliminary Culture exhibits no growth. 05/16/20 04:00 Blood Culture (Wb) - Anticubital Left Blood Culture - Preliminary Gram negative sylvia 05/16/20 06:00 Urine, Clean Catch Streptococcus pneumoniae Antigen (M - Final 05/16/20 06:00 Urine, Clean Catch Legionella Antigen - Final Laboratory Results 05/16/20 08:14: Diff Path Review Reviewed 05/17/20 06:45: Sodium 136, Potassium 3.6, Chloride 104, Carbon Dioxide 26.0, Anion Gap 6, BUN 15, Creatinine 0.76, Estim Creat Clear Calc 41.45, Est GFR (MDRD) Af Amer 96, Est GFR (MDRD) Non-Af 79, BUN/Creatinine Ratio 19.7, Glucose 108 H, Calcium 8.7, Total Bilirubin 0.60, AST 39 H, ALT 45, Alkaline Phosphatase 61, Total Protein 6.4, Albumin 2.6 L, Globulin 3.8, Albumin/Globulin Ratio 0.7 L 05/17/20 06:45: WBC 5.5, RBC 4.54, Hgb 13.8, Hct 41.1, MCV 90.5, MCH 30.4, MCHC 33.6, RDW Std Deviation 42.5, RDW Coeff of [place] 12.8, Plt Count 240, MPV 10.1, Immature Gran % (Auto) 0.400, Neut % (Auto) 86.1 H, Lymph % (Auto) 10.8 L, [place] % (Auto) 2.7, Eos % (Auto) 0.0, Baso % (Auto) 0.0, Absolute Neuts (auto) 4.8, Absolute Lymphs (auto) 0.60 L, Nucleated RBC % 0, Differential Comment SCANNED 05/17/20 12:00: Specimen Type ART, Sample Site R Radial, pH 7.51 H, Bicarbonate Actual 24.4, Total CO2 25, Base Excess 1, O2 Saturation 90 L, ABG pCO2 30.6 L, ABG pO2 51 L, Cameron Test Positive, O2 Delivery Device Cannula 05/17/20 21:50: WBC 7.9, RBC 4.55, Hgb 13.9, Hct 40.5, MCV 89.0, MCH 30.5, MCHC 34.3, RDW Std Deviation 42.0, RDW Coeff of [place] 12.8, Plt Count 293, MPV 9.8, Immature Gran % (Auto) 0.600, Neut % (Auto) 92.6 H, Lymph % (Auto) 4.4 L, [place] % (Auto) 2.3, Eos % (Auto) 0.0, Baso % (Auto) 0.1, Absolute Neuts (auto) 7.3, Absolute Lymphs (auto) 0.35 L, Nucleated RBC % 0, Differential Comment COMMENT, Platelet Estimate ADEQUATE 05/17/20 21:50: Sodium 136, Potassium 3.6, Chloride 102, Carbon Dioxide 22.0, Anion Gap 12, BUN 18, Creatinine 1.11 H, Estim Creat Clear Calc 37.34, Est GFR (MDRD) Af Amer 62, Est GFR (MDRD) Non-Af 51 L, BUN/Creatinine Ratio 16.2, Glucose 155 H, Calcium 8.5 05/17/20 21:50: Total Creatine Kinase 349 H, Triglycerides 126 05/17/20 23:38: Specimen Type ART, Sample Site L Radial, pH 7.49 H, Bicarbonate Actual 23.4, Total CO2 24, Base Excess 0, O2 Saturation 99, O2 % 100, ABG pCO2 31.0 L, ABG pO2 106 H, Respiration Rate 14, O2 Delivery Device Adult Vent, Vent Mode AC, Tidal Volume 450, POC PEEP 10 05/18/20 03:15: WBC 9.5, RBC 4.62, Hgb 13.7, Hct 41.0, MCV 88.7, MCH 29.7, MCHC 33.4, RDW Std Deviation 43.0, RDW Coeff of [place] 13.1, Plt Count 328, MPV 9.9, Immature Gran % (Auto) 0.800, Neut % (Auto) 87.8 H, Lymph % (Auto) 9.0 L, [place] % (Auto) 2.4, Eos % (Auto) 0.0, Baso % (Auto) 0.0, Absolute Neuts (auto) 8.3 H, Absolute Lymphs (auto) 0.85, Nucleated RBC % 0, Differential Comment SCANNED, Atypical Lymphocytes RARE, Platelet Estimate ADEQUATE 05/18/20 03:15: Sodium 136, Potassium 3.6, Chloride 100, Carbon Dioxide 24.0, Anion Gap 12, BUN 21 H, Creatinine 1.37 H, Estim Creat Clear Calc 30.25, Est GFR (MDRD) Af Amer 49 L, Est GFR (MDRD) Non-Af 40 L, BUN/Creatinine Ratio 15.3, Glucose 159 H, Calcium 8.5 05/18/20 03:15: Magnesium 2.0 05/18/20 03:15: B-Natriuretic Peptide 80.0 Current Medications Acetaminophen (Acetaminophen 650 Mg/20 Ml Udc) 650 mg GT Q6H PRN PRN PRN Reason: Pain Score 1-10/Temp > 100.7 F Albuterol Sulfate (Albuterol Ih 8.5 Gm (Proair) Inhaler (200 Puffs)) 2 puff INHALATION Q4H PRN PRN PRN Reason: SOB &/OR WHEEZING Carbidopa/Levodopa (Carbidopa/Levodopa 25/250 Tablet) 1 tablet GT 0400,1000,1600,2200 [facility]ES [facility] Last Admin: 05/18/20 03:54 Dose: 1 tablet Documented by: Dexamethasone (Dexamethasone 4 Mg Tablet) 6 mg GT DAILY@0800 [facility] Stop: 05/25/20 08:01 Enoxaparin Sodium (Enoxaparin 30 Mg/0.3 Ml Syringe) 30 mg SC BID COUNT INCLUDES [facility] Last Admin: 05/17/20 22:44 Dose: 30 mg Documented by: Sodium Chloride () 250 mls @ 15 mls/hr IV .[id number] PRN PRN Reason: Saline Flush Last Infusion: 05/18/20 03:44 Dose: 0 mls/hr Documented by: Sodium Chloride () 250 mls @ 15 mls/hr IV .[id number] PRN PRN Reason: Additional IVPB Infusion Propofol (Diprivan) 1,000 mg in 100 mls @ 4.956 mls/hr CONT INF .Q12H [facility]CLUDES [facility]; Protocol Last Titration: 05/18/20 06:58 Dose: 5 mcg/kg/min, 2.5 mls/hr Documented by: Fentanyl Citrate 1,000 mcg/ (Sodium Chloride) 100 mls @ 2.5 mls/hr CONT INF .Q40H [facility]CLUDES [facility]; Protocol Last Titration: 05/18/20 06:58 Dose: 100 mcg/hr, 10 mls/hr Documented by: Norepinephrine Bitartrate 8 mg (/ Sodium Chloride) 250 mls @ 9.375 mls/hr CONT INF .[id number] COUNT [facility]CLUDES [facility]; Protocol Last Titration: 05/18/20 07:00 Dose: 6 mcg/min, 11.3 mls/hr Documented by: Piperacillin Sod/Tazobactam (Sod 3.375 gm/ Sodium Chloride) 50 mls @ 12.5 mls/hr IV Q8@0200,1000,1800 [facility] Last Admin: 05/18/20 03:43 Dose: 12.5 mls/hr Documented by: Lorazepam (Lorazepam 2 Mg/Ml Syringe) 2 mg IM Q6H PRN PRN PRN Reason: AGITATION Last Admin: 05/17/20 19:55 Dose: 2 mg Documented by: Melatonin (Melatonin 3 Mg Tablet) 3 mg GT QHS PRN PRN PRN Reason: INSOMNIA Ondansetron HCl (Ondansetron 4 Mg/2 Ml Vial) 4 mg IV Q8H PRN PRN PRN Reason: NAUSEA/VOMITING Pramipexole Dihydrochloride (Pramipexole Di-Hcl 1 Mg Tablet) 1.5 mg GT TIDCM [facility] Rasagiline (Rasagiline Mesylate 1 Mg Tablet) 1 mg GT DAILY [facility] Sodium Chloride (0.9% Saline Lock 10 Ml Syringe) 10 - 40 ml IV UD PRN PRN Reason: SALINE FLUSH Last Admin: 05/18/20 03:43 Dose: 40 ml Documented by: STROKE Vital Signs/Narrative: Vital Signs Temp Pulse Resp BP Pulse Ox 05/18/20 07:00 85 19 H 95/54 L 94 05/18/20 06:45 87/46 L 05/18/20 06:30 104/51 L 05/18/20 06:15 89/50 L 05/18/20 06:00 94 21 H 100/50 L 93 05/18/20 05:45 129/59 H 05/18/20 05:30 122/65 H 05/18/20 05:15 161/71 H 05/18/20 05:00 104 H 21 H 143/66 H 96 05/18/20 04:49 105 H 19 H 97 05/18/20 04:45 172/69 H 05/18/20 04:30 158/60 H 05/18/20 04:15 146/53 H 05/18/20 04:13 90 05/18/20 04:00 99.3 F H 89 21 H 118/66 94 05/18/20 03:45 107/60 05/18/20 03:31 90 23 H 95 05/18/20 03:30 102/62 Medical Necessity - Tobacco Use Smoking Status: Never smoker Assessment/Plan All Active Problems (Last Updated 05/16/20 @ 05:[address] Timothy Crews MD) COVID-19 virus detected (Acute) Pneumonia due to 2019 novel coronavirus (Acute) 1. Acute hypoxic respiratory failure secondary to Acute COVID-19 infection Intubated, on mechanical ventilator, pulmonology following 2. Acute metabolic encephalopathy/delirium secondary to COVID-19 infection/pneumonia/hypoxia and bacteremia, Patient is currently intubated 3. Acute COVID-19 infection/pneumonia, severe with hypoxia CTA was negative for acute PE, showed multifocal infiltrates On IV dexamethasone and redemsivir. Not a candidate for plasma. 4. Septic shock/Gram neg bacteremia, unclear etiology started on IV Zosyn No fevers overnight. On Levophed Will continue to follow cultures, repeat blood cultures ID following 5. 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 DVT PPx- Lovenox BID Inpatient E&M: [id number] Subs Hosp L3
--- NOTE | 2020-05-18 07:26 | PCM.PN.HOSP ---
Patient Problems: Active and Suspected Problems (Last Updated 05/16/20 @ 05:[address] Timothy Crews MD) COVID-19 virus detected (Acute) Pneumonia due to 2019 novel coronavirus (Acute) Vitals/I&O's: Vital Signs Temp Pulse Resp BP Pulse Ox 99.3 F H 85 19 H 95/54 L 94 05/18/20 04:00 05/18/20 07:00 05/18/20 07:00 05/18/20 07:00 05/18/20 07:00 Oxygen Flow Rate (L/min) 15 Oxygen Delivery Method Mechanical Ventilator Weight: 82.6 kg Body Mass Index (BMI) 32.1 Intake and Output for Last 24 Hours 05/16/20 05/17/20 05/18/20 23:59 23:59 23:59 Intake Total 1814 / 2094 992.64 / 997.97 263.76 / 263.76 Output Total 650 / 950 450 / 450 Balance 1814 / 2094 342.64 / 47.97 -186.24 / -186.24 Microbiology Past 72 Hours 05/15/20 23:56 Blood Culture (Wb) - Right Forearm Blood Culture - Preliminary No growth in 48 hours. 05/16/20 00:12 Urine Catheter - Catheter Urine Culture - Preliminary Culture exhibits no growth. 05/16/20 04:00 Blood Culture (Wb) - Anticubital Left Blood Culture - Preliminary Gram negative sylvia 05/16/20 06:00 Urine, Clean Catch Streptococcus pneumoniae Antigen (M - Final 05/16/20 06:00 Urine, Clean Catch Legionella Antigen - Final Laboratory Results 05/16/20 08:14: Diff Path Review Reviewed 05/17/20 06:45: Sodium 136, Potassium 3.6, Chloride 104, Carbon Dioxide 26.0, Anion Gap 6, BUN 15, Creatinine 0.76, Estim Creat Clear Calc 41.45, Est GFR (MDRD) Af Amer 96, Est GFR (MDRD) Non-Af 79, BUN/Creatinine Ratio 19.7, Glucose 108 H, Calcium 8.7, Total Bilirubin 0.60, AST 39 H, ALT 45, Alkaline Phosphatase 61, Total Protein 6.4, Albumin 2.6 L, Globulin 3.8, Albumin/Globulin Ratio 0.7 L 05/17/20 06:45: WBC 5.5, RBC 4.54, Hgb 13.8, Hct 41.1, MCV 90.5, MCH 30.4, MCHC 33.6, RDW Std Deviation 42.5, RDW Coeff of [place] 12.8, Plt Count 240, MPV 10.1, Immature Gran % (Auto) 0.400, Neut % (Auto) 86.1 H, Lymph % (Auto) 10.8 L, [place] % (Auto) 2.7, Eos % (Auto) 0.0, Baso % (Auto) 0.0, Absolute Neuts (auto) 4.8, Absolute Lymphs (auto) 0.60 L, Nucleated RBC % 0, Differential Comment SCANNED 05/17/20 12:00: Specimen Type ART, Sample Site R Radial, pH 7.51 H, Bicarbonate Actual 24.4, Total CO2 25, Base Excess 1, O2 Saturation 90 L, ABG pCO2 30.6 L, ABG pO2 51 L, Cameron Test Positive, O2 Delivery Device Cannula 05/17/20 21:50: WBC 7.9, RBC 4.55, Hgb 13.9, Hct 40.5, MCV 89.0, MCH 30.5, MCHC 34.3, RDW Std Deviation 42.0, RDW Coeff of [place] 12.8, Plt Count 293, MPV 9.8, Immature Gran % (Auto) 0.600, Neut % (Auto) 92.6 H, Lymph % (Auto) 4.4 L, [place] % (Auto) 2.3, Eos % (Auto) 0.0, Baso % (Auto) 0.1, Absolute Neuts (auto) 7.3, Absolute Lymphs (auto) 0.35 L, Nucleated RBC % 0, Differential Comment COMMENT, Platelet Estimate ADEQUATE 05/17/20 21:50: Sodium 136, Potassium 3.6, Chloride 102, Carbon Dioxide 22.0, Anion Gap 12, BUN 18, Creatinine 1.11 H, Estim Creat Clear Calc 37.34, Est GFR (MDRD) Af Amer 62, Est GFR (MDRD) Non-Af 51 L, BUN/Creatinine Ratio 16.2, Glucose 155 H, Calcium 8.5 05/17/20 21:50: Total Creatine Kinase 349 H, Triglycerides 126 05/17/20 23:38: Specimen Type ART, Sample Site L Radial, pH 7.49 H, Bicarbonate Actual 23.4, Total CO2 24, Base Excess 0, O2 Saturation 99, O2 % 100, ABG pCO2 31.0 L, ABG pO2 106 H, Respiration Rate 14, O2 Delivery Device Adult Vent, Vent Mode AC, Tidal Volume 450, POC PEEP 10 05/18/20 03:15: WBC 9.5, RBC 4.62, Hgb 13.7, Hct 41.0, MCV 88.7, MCH 29.7, MCHC 33.4, RDW Std Deviation 43.0, RDW Coeff of [place] 13.1, Plt Count 328, MPV 9.9, Immature Gran % (Auto) 0.800, Neut % (Auto) 87.8 H, Lymph % (Auto) 9.0 L, [place] % (Auto) 2.4, Eos % (Auto) 0.0, Baso % (Auto) 0.0, Absolute Neuts (auto) 8.3 H, Absolute Lymphs (auto) 0.85, Nucleated RBC % 0, Differential Comment SCANNED, Atypical Lymphocytes RARE, Platelet Estimate ADEQUATE 05/18/20 03:15: Sodium 136, Potassium 3.6, Chloride 100, Carbon Dioxide 24.0, Anion Gap 12, BUN 21 H, Creatinine 1.37 H, Estim Creat Clear Calc 30.25, Est GFR (MDRD) Af Amer 49 L, Est GFR (MDRD) Non-Af 40 L, BUN/Creatinine Ratio 15.3, Glucose 159 H, Calcium 8.5 05/18/20 03:15: Magnesium 2.0 05/18/20 03:15: B-Natriuretic Peptide 80.0 Current Medications Acetaminophen (Acetaminophen 650 Mg/20 Ml Udc) 650 mg GT Q6H PRN PRN PRN Reason: Pain Score 1-10/Temp > 100.7 F Albuterol Sulfate (Albuterol Ih 8.5 Gm (Proair) Inhaler (200 Puffs)) 2 puff INHALATION Q4H PRN PRN PRN Reason: SOB &/OR WHEEZING Carbidopa/Levodopa (Carbidopa/Levodopa 25/250 Tablet) 1 tablet GT 0400,1000,1600,2200 [facility] Last Admin: 05/18/20 03:54 Dose: 1 tablet Documented by: Dexamethasone (Dexamethasone 4 Mg Tablet) 6 mg GT DAILY@0800 [facility] Stop: 05/25/20 08:01 Enoxaparin Sodium (Enoxaparin 30 Mg/0.3 Ml Syringe) 30 mg SC BID [facility] Last Admin: 05/17/20 22:44 Dose: 30 mg Documented by: Sodium Chloride () 250 mls @ 15 mls/hr IV .[id number] PRN PRN Reason: Saline Flush Last Infusion: 05/18/20 03:44 Dose: 0 mls/hr Documented by: Sodium Chloride () 250 mls @ 15 mls/hr IV .[id number] PRN PRN Reason: Additional IVPB Infusion Propofol (Diprivan) 1,000 mg in 100 mls @ 4.956 mls/hr CONT INF .Q12H [facility]; Protocol Last Titration: 05/18/20 06:58 Dose: 5 mcg/kg/min, 2.5 mls/hr Documented by: Fentanyl Citrate 1,000 mcg/ (Sodium Chloride) 100 mls @ 2.5 mls/hr CONT INF .Q40H [facility]; Protocol Last Titration: 05/18/20 06:58 Dose: 100 mcg/hr, 10 mls/hr Documented by: Norepinephrine Bitartrate 8 mg (/ Sodium Chloride) 250 mls @ 9.375 mls/hr CONT INF .[id number] [facility]; Protocol Last Titration: 05/18/20 07:00 Dose: 6 mcg/min, 11.3 mls/hr Documented by: Piperacillin Sod/Tazobactam (Sod 3.375 gm/ Sodium Chloride) 50 mls @ 12.5 mls/hr IV Q8@0200,1000,1800 [facility] Last Admin: 05/18/20 03:43 Dose: 12.5 mls/hr Documented by: Lorazepam (Lorazepam 2 Mg/Ml Syringe) 2 mg IM Q6H PRN PRN PRN Reason: AGITATION Last Admin: 05/17/20 19:55 Dose: 2 mg Documented by: Melatonin (Melatonin 3 Mg Tablet) 3 mg GT QHS PRN PRN PRN Reason: INSOMNIA Ondansetron HCl (Ondansetron 4 Mg/2 Ml Vial) 4 mg IV Q8H PRN PRN PRN Reason: NAUSEA/VOMITING Pramipexole Dihydrochloride (Pramipexole Di-Hcl 1 Mg Tablet) 1.5 mg GT TIDCM [facility] Rasagiline (Rasagiline Mesylate 1 Mg Tablet) 1 mg GT DAILY [facility] Sodium Chloride (0.9% Saline Lock 10 Ml Syringe) 10 - 40 ml IV UD PRN PRN Reason: SALINE FLUSH Last Admin: 05/18/20 03:43 Dose: 40 ml Documented by: PAGE Vital Signs/Narrative: Vital Signs Temp Pulse Resp BP Pulse Ox 05/18/20 07:00 85 19 H 95/54 L 94 05/18/20 06:45 87/46 L 05/18/20 06:30 104/51 L 05/18/20 06:15 89/50 L 05/18/20 06:00 94 21 H 100/50 L 93 05/18/20 05:45 129/59 H 05/18/20 05:30 122/65 H 05/18/20 05:15 161/71 H 05/18/20 05:00 104 H 21 H 143/66 H 96 05/18/20 04:49 105 H 19 H 97 05/18/20 04:45 172/69 H 05/18/20 04:30 158/60 H 05/18/20 04:15 146/53 H 05/18/20 04:13 90 05/18/20 04:00 99.3 F H 89 21 H 118/66 94 05/18/20 03:45 107/60 05/18/20 03:31 90 23 H 95 05/18/20 03:30 102/62 Medical Necessity - Tobacco Use Smoking Status: Never smoker Assessment/Plan All Active Problems (Last Updated 05/16/20 @ 05:[address] Timothy Crews MD) COVID-19 virus detected (Acute) Pneumonia due to 2019 novel coronavirus (Acute)
--- NOTE | 2020-05-18 11:19 | PCM.PN.ID ---
Patient Problems: Active and Suspected Problems (Last Updated 05/16/20 @ 05:[address] Timothy Crews MD) COVID-19 virus detected (Acute) Pneumonia due to 2019 novel coronavirus (Acute) Subjective: On vent, no fever - Physical Exam Vitals/I&O's: Vital Signs Temp Pulse Resp BP Pulse Ox 98.5 F 85 19 H 112/53 L 95 05/18/20 09:45 05/18/20 09:45 05/18/20 09:45 05/18/20 09:45 05/18/20 09:45 Oxygen Flow Rate (L/min) 15 Oxygen Delivery Method Mechanical Ventilator Weight: 82.6 kg Body Mass Index (BMI) 32.1 Intake and Output for Last 24 Hours 05/16/20 05/17/20 05/18/20 23:59 23:59 23:59 Intake Total 1814 992.64 / 997.97 372.66 / 372.66 Output Total 650 / 950 450 / 450 Balance 1814 342.64 / 47.97 -77.34 / -77.34 General: No apparent distress, Lethargic Lungs: Diminished Cardiovascular: Regular rate, Regular Rhythm Abdomen: Soft, Non Tender, Non-Distended Skin: No rashes Microbiology Past 72 Hours 05/16/20 00:12 Urine Catheter - Catheter Urine Culture - Final Culture exhibits no growth. 05/16/20 04:00 Blood Culture (Wb) - Anticubital Left Blood Culture - Preliminary Gram negative sylvia 05/15/20 23:56 Blood Culture (Wb) - Right Forearm Blood Culture - Preliminary No growth in 48 hours. 05/16/20 06:00 Urine, Clean Catch Streptococcus pneumoniae Antigen (M - Final 05/16/20 06:00 Urine, Clean Catch Legionella Antigen - Final Laboratory Results 05/16/20 08:14: Diff Path Review Reviewed 05/17/20 12:00: Specimen Type ART, Sample Site R Radial, pH 7.51 H, Bicarbonate Actual 24.4, Total CO2 25, Base Excess 1, O2 Saturation 90 L, ABG pCO2 30.6 L, ABG pO2 51 L, Cameron Test Positive, O2 Delivery Device Cannula 05/17/20 21:50: WBC 7.9, RBC 4.55, Hgb 13.9, Hct 40.5, MCV 89.0, MCH 30.5, MCHC 34.3, RDW Std Deviation 42.0, RDW Coeff of [place] 12.8, Plt Count 293, MPV 9.8, Immature Gran % (Auto) 0.600, Neut % (Auto) 92.6 H, Lymph % (Auto) 4.4 L, [place] % (Auto) 2.3, Eos % (Auto) 0.0, Baso % (Auto) 0.1, Absolute Neuts (auto) 7.3, Absolute Lymphs (auto) 0.35 L, Nucleated RBC % 0, Differential Comment COMMENT, Platelet Estimate ADEQUATE 05/17/20 21:50: Sodium 136, Potassium 3.6, Chloride 102, Carbon Dioxide 22.0, Anion Gap 12, BUN 18, Creatinine 1.11 H, Estim Creat Clear Calc 37.34, Est GFR (MDRD) Af Amer 62, Est GFR (MDRD) Non-Af 51 L, BUN/Creatinine Ratio 16.2, Glucose 155 H, Calcium 8.5 05/17/20 21:50: Total Creatine Kinase 349 H, Triglycerides 126 05/17/20 23:38: Specimen Type ART, Sample Site L Radial, pH 7.49 H, Bicarbonate Actual 23.4, Total CO2 24, Base Excess 0, O2 Saturation 99, O2 % 100, ABG pCO2 31.0 L, ABG pO2 106 H, Respiration Rate 14, O2 Delivery Device Adult Vent, Vent Mode AC, Tidal Volume 450, POC PEEP 10 05/18/20 03:15: WBC 9.5, RBC 4.62, Hgb 13.7, Hct 41.0, MCV 88.7, MCH 29.7, MCHC 33.4, RDW Std Deviation 43.0, RDW Coeff of [place] 13.1, Plt Count 328, MPV 9.9, Immature Gran % (Auto) 0.800, Neut % (Auto) 87.8 H, Lymph % (Auto) 9.0 L, [place] % (Auto) 2.4, Eos % (Auto) 0.0, Baso % (Auto) 0.0, Absolute Neuts (auto) 8.3 H, Absolute Lymphs (auto) 0.85, Nucleated RBC % 0, Differential Comment SCANNED, Atypical Lymphocytes RARE, Platelet Estimate ADEQUATE 05/18/20 03:15: Sodium 136, Potassium 3.6, Chloride 100, Carbon Dioxide 24.0, Anion Gap 12, BUN 21 H, Creatinine 1.37 H, Estim Creat Clear Calc 30.25, Est GFR (MDRD) Af Amer 49 L, Est GFR (MDRD) Non-Af 40 L, BUN/Creatinine Ratio 15.3, Glucose 159 H, Calcium 8.5 05/18/20 03:15: Magnesium 2.0 05/18/20 03:15: B-Natriuretic Peptide 80.0 Current Medications Acetaminophen (Acetaminophen 650 Mg/20 Ml Udc) 650 mg GT Q6H PRN PRN PRN Reason: Pain Score 1-10/Temp > 100.7 F Albuterol Sulfate (Albuterol Ih 8.5 Gm (Proair) Inhaler (200 Puffs)) 2 puff INHALATION Q4H PRN PRN PRN Reason: SOB &/OR WHEEZING Carbidopa/Levodopa (Carbidopa/Levodopa 25/250 Tablet) 1 tablet GT 0400,1000,1600,2200 [facility] Last Admin: 05/18/20 03:54 Dose: 1 tablet Documented by: Dexamethasone (Dexamethasone 4 Mg Tablet) 6 mg GT DAILY@0800 [facility] Stop: 05/25/20 08:01 Enoxaparin Sodium (Enoxaparin 30 Mg/0.3 Ml Syringe) 30 mg SC BID [facility] Last Admin: 05/17/20 22:44 Dose: 30 mg Documented by: Famotidine (Famotidine 20 Mg Tablet) 20 mg GT DAILY [facility] Sodium Chloride () 250 mls @ 15 mls/hr IV .[id number] PRN PRN Reason: Saline Flush Last Infusion: 05/18/20 03:44 Dose: 0 mls/hr Documented by: Sodium Chloride () 250 mls @ 15 mls/hr IV .[id number] PRN PRN Reason: Additional IVPB Infusion Propofol (Diprivan) 1,000 mg in 100 mls @ 4.956 mls/hr CONT INF .Q12H [facility]; Protocol Last Titration: 05/18/20 06:58 Dose: 5 mcg/kg/min, 2.5 mls/hr Documented by: Fentanyl Citrate 1,000 mcg/ (Sodium Chloride) 100 mls @ 2.5 mls/hr CONT INF .Q40H [facility]; Protocol Last Titration: 05/18/20 09:45 Dose: 100 mcg/hr, 10 mls/hr Documented by: Norepinephrine Bitartrate 8 mg (/ Sodium Chloride) 250 mls @ 9.375 mls/hr CONT INF .[id number] [facility]; Protocol Last Titration: 05/18/20 09:45 Dose: 6 mcg/min, 11.3 mls/hr Documented by: Piperacillin Sod/Tazobactam (Sod 3.375 gm/ Sodium Chloride) 50 mls @ 12.5 mls/hr IV Q8@0200,1000,1800 [facility] Last Admin: 05/18/20 10:45 Dose: 12.5 mls/hr Documented by: Lorazepam (Lorazepam 2 Mg/Ml Syringe) 2 mg IM Q6H PRN PRN PRN Reason: AGITATION Last Admin: 05/17/20 19:55 Dose: 2 mg Documented by: Melatonin (Melatonin 3 Mg Tablet) 3 mg GT QHS PRN PRN PRN Reason: INSOMNIA Ondansetron HCl (Ondansetron 4 Mg/2 Ml Vial) 4 mg IV Q8H PRN PRN PRN Reason: NAUSEA/VOMITING Pramipexole Dihydrochloride (Pramipexole Di-Hcl 1 Mg Tablet) 1.5 mg GT TIDCM [facility] Rasagiline (Rasagiline Mesylate 1 Mg Tablet) 1 mg GT DAILY [facility] Sodium Chloride (0.9% Saline Lock 10 Ml Syringe) 10 - 40 ml IV UD PRN PRN Reason: SALINE FLUSH Last Admin: 05/18/20 03:43 Dose: 40 ml Documented by: Medical Necessity - Tobacco Use Smoking Status: Never smoker Route of nutrition/ use of supplements: [] Nutritional Intake: [] IV Site: [] Allen Catheter: [] - Assessment/Plan Antibiotics: [] Assessment/Plan: [] Active and Suspected Problems (Last Updated 05/16/20 @ 05:[address] Timothy Crews MD) COVID-19 virus detected (Acute) Pneumonia due to 2019 novel coronavirus (Acute) covid with hypoxia - 2 weeks into her course, so likely not benefit from plasma or remdesivir. Cont dex. PCT was 0.2, relatively asymptomatic. On lovenox [address] showed no PE, mild elevated d-dimer. UAg neg. Intubated overnight. GNR bacteremia - cont zosyn, unclear source, denies abd pain or dysuria. Also GPC seen on anaerobic gram stain. Will follow
[2020-05-18] MEDS: Enoxaparin 30 MG/0.3 ML Syringe SC ×2 (11:28→22:22)
[2020-05-18] MEDS: Famotidine 20 MG Tablet GT (11:34)
[2020-05-18] MEDS: dexAMETHasone 4 MG Tablet 6 MG GT (11:35)
[2020-05-18] MEDS: Pramipexole Di-HCl 1 MG Tablet 1.5 MG GT ×2 (11:35→18:33)
--- NOTE | 2020-05-18 12:11 | PN_ITS ---
Subjective: Events over the last 24 hours were reviewed. Patient with rapid decline in overall condition requiring intubation overnight. Patient has also been initiated on Levophed secondary to hypotension and has since been found to have a gram-negative sylvia growing in her blood. Patient is currently not able to answer questions to provide additional history. General: - - Some mild tremor noted. Intubated and sedated. Appears younger than stated age HEENT: Atraumatic, PERRLA, EOMI, Normocephalic, - - No scleral icterus or injection noted Oral: Moist Mucosa, No Gingival or Mucosal Lesions/ Ulcerations Neck: Supple, No JVD, No Nodes, Trachea Midline Lungs: No wheeze, No rales, Diminished, Rhonchi, - - Symmetric expansion Cardiovascular: Normal S1, Normal S2, No murmurs, No rub noted, No Gallop, Tachycardic Abdomen: Bowel Sounds Present, Soft, Non Tender, Non-Distended Extremities: No clubbing, No cyanosis, No edema, Capillary Refill Less than 3 Seconds Skin: No rashes, No breakdown Musculoskeletal: No Tenderness to Palpation of Joints or Extremities Lymphatic: No Cervical, Supraclavicular, or Inguinal Adenopathy Neurological: Cranial nerves II-XII grossly intact, Neuro grossly intact - Patient does have a significant resting tremor at baseline Psych/Mental Status: Flat Affect Vital Signs Temp Pulse Resp BP Pulse Ox 36.9 C 88 20 H 112/53 L 94 05/18/20 09:45 05/18/20 11:37 05/18/20 11:37 05/18/20 09:45 05/18/20 11:37 Oxygen Flow Rate (L/min) 15 Oxygen Delivery Method Mechanical Ventilator Weight: 82.6 kg Body Mass Index (BMI) 32.1 Intake and Output for Last 24 Hours 05/16/20 05/17/20 05/18/20 23:59 23:59 23:59 Intake Total 1814 992.64 / 997.97 474.08 / 474.08 Output Total 650 / 950 450 / 450 Balance 1814 342.64 / 47.97 24.08 / 24.08 Labs (Last 48 Hours) 05/16/20 05/16/20 05/17/20 01:15 08:14 06:45 WBC RBC Hgb Hct MCV MCH MCHC RDW Std Deviation RDW Coeff of [place] Plt Count MPV Immature Gran % (Auto) Neut % (Auto) Lymph % (Auto) [place] % (Auto) Eos % (Auto) Baso % (Auto) Absolute Neuts (auto) Absolute Lymphs (auto) Nucleated RBC % Differential Comment Diff Path Review Reviewed Reviewed Atypical Lymphocytes Platelet Estimate Specimen Type Sample Site pH Bicarbonate Actual Total CO2 Base Excess O2 Saturation O2 % ABG pCO2 ABG pO2 Cameron Test Respiration Rate O2 Delivery Device Vent Mode Tidal Volume POC PEEP Sodium 136 Potassium 3.6 Chloride 104 Carbon Dioxide 26.0 Anion Gap 6 BUN 15 Creatinine 0.76 Estim Creat Clear Calc 41.45 Est GFR (MDRD) Af Amer 96 Est GFR (MDRD) Non-Af 79 BUN/Creatinine Ratio 19.7 Glucose 108 H Calcium 8.7 Magnesium Total Bilirubin 0.60 AST 39 H ALT 45 Alkaline Phosphatase 61 Total Creatine Kinase B-Natriuretic Peptide Total Protein 6.4 Albumin 2.6 L Globulin 3.8 Albumin/Globulin Ratio 0.7 L Triglycerides 05/17/20 05/17/20 05/17/20 06:45 12:00 21:50 WBC 5.5 7.9 RBC 4.54 4.55 Hgb 13.8 13.9 Hct 41.1 40.5 MCV 90.5 89.0 MCH 30.4 30.5 MCHC 33.6 34.3 RDW Std Deviation 42.5 42.0 RDW Coeff of [place] 12.8 12.8 Plt Count 240 293 MPV 10.1 9.8 Immature Gran % (Auto) 0.400 0.600 Neut % (Auto) 86.1 H 92.6 H Lymph % (Auto) 10.8 L 4.4 L [place] % (Auto) 2.7 2.3 Eos % (Auto) 0.0 0.0 Baso % (Auto) 0.0 0.1 Absolute Neuts (auto) 4.8 7.3 Absolute Lymphs (auto) 0.60 L 0.35 L Nucleated RBC % 0 0 Differential Comment SCANNED COMMENT Diff Path Review Atypical Lymphocytes Platelet Estimate ADEQUATE Specimen Type ART Sample Site R Radial pH 7.51 H Bicarbonate Actual 24.4 Total CO2 25 Base Excess 1 O2 Saturation 90 L O2 % ABG pCO2 30.6 L ABG pO2 51 L Cameron Test Positive Respiration Rate O2 Delivery Device Cannula Vent Mode Tidal Volume POC PEEP Sodium Potassium Chloride Carbon Dioxide Anion Gap BUN Creatinine Estim Creat Clear Calc Est GFR (MDRD) Af Amer Est GFR (MDRD) Non-Af BUN/Creatinine Ratio Glucose Calcium Magnesium Total Bilirubin AST ALT Alkaline Phosphatase Total Creatine Kinase B-Natriuretic Peptide Total Protein Albumin Globulin Albumin/Globulin Ratio Triglycerides 05/17/20 05/17/20 05/17/20 21:50 21:50 23:38 WBC RBC Hgb Hct MCV MCH MCHC RDW Std Deviation RDW Coeff of [place] Plt Count MPV Immature Gran % (Auto) Neut % (Auto) Lymph % (Auto) [place] % (Auto) Eos % (Auto) Baso % (Auto) Absolute Neuts (auto) Absolute Lymphs (auto) Nucleated RBC % Differential Comment Diff Path Review Atypical Lymphocytes Platelet Estimate Specimen Type ART Sample Site L Radial pH 7.49 H Bicarbonate Actual 23.4 Total CO2 24 Base Excess 0 O2 Saturation 99 O2 % 100 ABG pCO2 31.0 L ABG pO2 106 H Cameron Test Respiration Rate 14 O2 Delivery Device Adult Vent Vent Mode AC Tidal Volume 450 POC PEEP 10 Sodium 136 Potassium 3.6 Chloride 102 Carbon Dioxide 22.0 Anion Gap 12 BUN 18 Creatinine 1.11 H Estim Creat Clear Calc 37.34 Est GFR (MDRD) Af Amer 62 Est GFR (MDRD) Non-Af 51 L BUN/Creatinine Ratio 16.2 Glucose 155 H Calcium 8.5 Magnesium Total Bilirubin AST ALT Alkaline Phosphatase Total Creatine Kinase 349 H B-Natriuretic Peptide Total Protein Albumin Globulin Albumin/Globulin Ratio Triglycerides 126 05/18/20 05/18/20 05/18/20 03:15 03:15 03:15 WBC 9.5 RBC 4.62 Hgb 13.7 Hct 41.0 MCV 88.7 MCH 29.7 MCHC 33.4 RDW Std Deviation 43.0 RDW Coeff of [place] 13.1 Plt Count 328 MPV 9.9 Immature Gran % (Auto) 0.800 Neut % (Auto) 87.8 H Lymph % (Auto) 9.0 L [place] % (Auto) 2.4 Eos % (Auto) 0.0 Baso % (Auto) 0.0 Absolute Neuts (auto) 8.3 H Absolute Lymphs (auto) 0.85 Nucleated RBC % 0 Differential Comment SCANNED Diff Path Review Atypical Lymphocytes RARE Platelet Estimate ADEQUATE Specimen Type Sample Site pH Bicarbonate Actual Total CO2 Base Excess O2 Saturation O2 % ABG pCO2 ABG pO2 Cameron Test Respiration Rate O2 Delivery Device Vent Mode Tidal Volume POC PEEP Sodium 136 Potassium 3.6 Chloride 100 Carbon Dioxide 24.0 Anion Gap 12 BUN 21 H Creatinine 1.37 H Estim Creat Clear Calc 30.25 Est GFR (MDRD) Af Amer 49 L Est GFR (MDRD) Non-Af 40 L BUN/Creatinine Ratio 15.3 Glucose 159 H Calcium 8.5 Magnesium 2.0 Total Bilirubin AST ALT Alkaline Phosphatase Total Creatine Kinase B-Natriuretic Peptide Total Protein Albumin Globulin Albumin/Globulin Ratio Triglycerides 05/18/20 03:15 WBC RBC Hgb Hct MCV MCH MCHC RDW Std Deviation RDW Coeff of [place] Plt Count MPV Immature Gran % (Auto) Neut % (Auto) Lymph % (Auto) [place] % (Auto) Eos % (Auto) Baso % (Auto) Absolute Neuts (auto) Absolute Lymphs (auto) Nucleated RBC % Differential Comment Diff Path Review Atypical Lymphocytes Platelet Estimate Specimen Type Sample Site pH Bicarbonate Actual Total CO2 Base Excess O2 Saturation O2 % ABG pCO2 ABG pO2 Cameron Test Respiration Rate O2 Delivery Device Vent Mode Tidal Volume POC PEEP Sodium Potassium Chloride Carbon Dioxide Anion Gap BUN Creatinine Estim Creat Clear Calc Est GFR (MDRD) Af Amer Est GFR (MDRD) Non-Af BUN/Creatinine Ratio Glucose Calcium Magnesium Total Bilirubin AST ALT Alkaline Phosphatase Total Creatine Kinase B-Natriuretic Peptide 80.0 Total Protein Albumin Globulin Albumin/Globulin Ratio Triglycerides Microbiology 05/16/20 00:12 Urine Catheter - Catheter Urine Culture - Final Culture exhibits no growth. 05/16/20 04:00 Blood Culture (Wb) - Anticubital Left Blood Culture - Preliminary Gram negative sylvia 05/15/20 23:56 Blood Culture (Wb) - Right Forearm Blood Culture - Preliminary No growth in 48 hours. Clinical Impression(s) from Imaging Studies Chest X-Ray 05/17/20 20:40 IMPRESSION: Mild increase in bilateral infiltrates. at 2221 Reported and signed by: Indigo Gupta MD Electronically Signed: Indigo Gupta MD at 22:20 EDT Tel , Service support , Chest X-Ray 05/17/20 21:12 IMPRESSION: Increasing bilateral infiltrates. Endotracheal tube in place. at 2222 Reported and signed by: Indigo Gupta MD Electronically Signed: Indigo Gupta MD at 22:21 EDT Tel , Service support , KUB X-Ray 05/17/20 21:15 IMPRESSION: Enteric tube tip in the gastric fundus. Bilateral lung opacities right greater than left unchanged. Electronically Signed: Billy Cook MD at 23:14 EDT , Service support , Medical Necessity - Tobacco Use Smoking Status: Never smoker Assessment/Plan All Active Problems (Last Updated 05/16/20 @ 05:[address] Timothy Crews MD) COVID-19 virus detected (Acute) Pneumonia due to 2019 novel coronavirus (Acute) RECOMMENDATIONS: 1. Continue mechanical ventilation. Wean supplemental oxygen to maintain saturations at or above 90%. 2. Continue Decadron 6 mg daily x10 days. 3. Defer antimicrobial management to infectious diseases. 4. Continue Parkinson's meds to help with vent liberation IMPRESSIONS: 1. Acute hypoxemic respiratory failure secondary to COVID-19 pneumonia Patient with acute decompensation overnight. Infiltrates appear to be progressive on chest x-ray. It is unclear if patient has a superinfection as she is now growing gram-negative rods in her blood. Await species and sensitivities. BNP was not significantly elevated to suggest CHF as an etiology. Continue to wean PEEP and FiO2 as tolerated. Spontaneous breathing and awakening trials per protocol. Patient with protracted presentation, so was not initiated on plasma or remdesivir. Patient may require transition to Precedex to facilitate liberation from the ventilator 2. Gram-negative sepsis Blood cultures have come back positive for gram-negative sepsis. Exact source is unclear at this time. Infectious disease is following. Patient initial pro calcitonin was relatively low. Wean Levophed as tolerated to maintain a map above 65. This may have added to patient's acute hypoxemic respiratory failure. Unlikely the patient would require stress dose steroids given Decadron being used for COVID-19 pneumonia 3. Advanced age/Parkinson's disease Complicates care, management, recovery and prognosis. Continue home medications as indicated. Continue Parkinson's meds to help with liberation from the ventilator. Some concern for an element of dementia adding to risk for delirium. Continue with appropriate protocol TIME: 33 minutes critical care time spent addressing patient's acute hypoxic respiratory failure, gram-negative sepsis, review of all data and collaboration with care team (8:30 AM to 9:30 AM) [id number]: [id number] Critical care first hour
--- NOTE | 2020-05-18 13:31 | PCM.NTREPORT ---
Nutrition Therapy Report - History Nutrition Services has been consulted to:: Manage enteral nutrition Current diet / nutrition support order:: regular - Anthropometric Measurements Height:: 5 ft 3 in Weight:: 82.6 kg Body Mass Index (BMI):: 32.2 - Relevant Labs Relevant Labs:: WBC 3.0 K/mm3 (4.4-11.0) L 05/16/20 08:14 RBC 4.01 M/mm3 (4.2-5.4) L 05/16/20 01:15 Hct 35.3 % (37-47) L 05/16/20 01:15 Neut % (Auto) 87.8 % (47-70) H 05/18/20 03:15 Lymph % (Auto) 9.0 % (19-41) L 05/18/20 03:15 Absolute Neuts (auto) 8.3 X10^3/uL (2.0-7.7) H 05/18/20 03:15 Absolute Lymphs (auto) 0.35 X10^3/uL (0.83-4.51) L 05/17/20 21:50 D-Dimer Quant (PE/DVT) 1.34 FEU/ug/m (0.27-0.49) H* 05/16/20 01:15 Sodium 134 mmol/L (136-145) L 05/16/20 01:15 Potassium 3.1 mmol/L (3.5-5.1) L 05/16/20 01:15 BUN 21 mg/dL (7-18) H 05/18/20 03:15 Creatinine 1.37 mg/dL (0.55-1.02) H 05/18/20 03:15 Est GFR (MDRD) Af Amer 49 mL/min (>60) L 05/18/20 03:15 Est GFR (MDRD) Non-Af 40 mL/min (>60) L 05/18/20 03:15 Glucose 159 mg/dL (74-106) H 05/18/20 03:15 Calcium 8.1 mg/dL (8.5-10.1) L 05/16/20 01:15 AST 39 U/L (15-37) H 05/17/20 06:45 Total Creatine Kinase 349 U/L (26-192) H 05/17/20 21:50 Total Protein 6.0 g/dL (6.4-8.2) L 05/16/20 01:15 Albumin 2.6 g/dL (3.2-5.0) L 05/17/20 06:45 Albumin/Globulin Ratio 0.7 RATIO (0.9-2.4) L 05/17/20 06:45 Procalcitonin 0.20 ng/mL (0.00-0.09) H 05/16/20 08:14 - Assessment Food / Nutrition-Related History:: Discussed in ICU rounds. Pt intubated w/ OGT in place. Wt increase of 0.5kg noted since admission. Per rounds, okay for nutrition support. See below. - Nutrition Diagnosis Problem / Etiology / Signs & Symptoms (PES):: Pt w/ inadequate PO intake r/t resp. failure from COVID-19 as evidenced by NPO status/intubation. Evidence of Malnutrition Exists:: No - Nutrition Intervention Nutrition Prescription:: Estimated nutritional needs: 0294-8840 calories, 99-129 g protein per day. - Food / Nutrient Delivery Interventions Summary of nutrition intervention:: Will change diet to NPO while intubated. Will order nutrition support. Nutrition support ordered as / adjusted to:: via OG- Vital AF 1.2 at goal rate of 60mL/hour w/ 100mL H2O flush every 4 hours to provide 1728 calories, 108 g protein, and 1767mL total fluid/day. Total formula per 24 hours: 1440mL. For gravity bag- start at 120mL for first 4 hours (approx 10 drops/min, 3 drops per 15 seconds); recommend 180mL for next 4 hours (approx 15 drops/min, 4 drops per 15 seconds); goal rate is 240mL per 4 hours (approxx 20 drops/min, 5 drops per 15 seconds). - MNT Monitoring Further MNT monitoring and evaluation required?: Yes MNT Follow-up in:: 1-2 days
[2020-05-18] MEDS: Vital AF 1.2 Cal Liquid 1,000 ML 60 ML GT ×4 (16:23→22:32)
[2020-05-18] MEDS: Propofol 10MG/Ml 1,000 MG/100 ML Bottle 2.5 MG CONT INF (16:35)
--- NOTE | 2020-05-18 19:45 | NURSING ---
Tube feed held at this time for sinemet administration.
[2020-05-18] MEDS: Chlorhexidine 15 ML PO (21:15)
[2020-05-18 23:40] LABS: Procalcitonin 0.52 ng/mL (0.00-0.09)
[2020-05-19] VITALS (81 sets, daily range): BP systolic 75–202; BP diastolic 49–129; PULSE 59–100; RESP 14–31; TEMP 36–36.4; O2SAT 81–100; BMI 31.4
[2020-05-19] MEDS: Propofol 10MG/Ml 1,000 MG/100 ML Bottle 7.4 MG CONT INF (01:51)
[2020-05-19] MEDS: Vital AF 1.2 Cal Liquid 1,000 ML 60 ML GT ×4 (01:52→11:50)
--- NOTE | 2020-05-19 03:15 | NURSING ---
Tube feed gravity feeding stopped at this time for sinemet dose.
[2020-05-19] MEDS: Carbidopa/Levodopa 25/250 Tablet GT ×4 (04:15→20:52)
[2020-05-19] MEDS: 0.9% Saline Lock 10 ML Syringe IV ×2 (04:22→23:10)
[2020-05-19 04:42] LABS: Basophil# 0.01 X10^3/uL; Hematocrit 40.2 % (37-47); Hemoglobin 13.3 g/dL (12.0-15.0); Mean Corp Hgb Conc 33.1 g/dL (32-36); Mean Corpuscular Volume 90.7 fL (81-99); Mean Platelet Vol. 10.2 fl (6.2-12.0); Monocyte# 0.19 X10^3/uL; NRBC Flagged by Analyzer 0 % (0-5); POSITIVE MORPHOLOGY YES; Platelet Count 314 K/mm3 (150-450); RBC Distribution Width CV 13.2 % (11.6-14.6); RBC Distribution Width SD 44.2 fl (35.1-43.9); Red Blood Count 4.43 M/mm3 (4.2-5.4); White Blood Count 10.1 K/mm3 (4.4-11.0)
[2020-05-19 04:53] LABS: Differential Indicated SCAN CRITERIA MET
[2020-05-19 05:05] LABS: ALB/GLOB Ratio 0.5 RATIO (0.9-2.4); AST(SGOT) 34 U/L (15-37); Alanine Aminotransfer ALT/SGPT 21 U/L (13-56); Albumin, Serum 2.2 g/dL (3.2-5.0); Alkaline Phosphatase 60 U/L (45-117); Anion Gap 9 (5-15); BUN 20 mg/dL (7-18); BUN/Creat Ratio 23.6 RATIO (10-20); Calcium,Total 8.5 mg/dL (8.5-10.1); Chloride 103 mmol/L (98-107); Creatinine, Serum 0.85 mg/dL (0.55-1.02); EST Glomerular Filtration Rate 70 mL/min (>60); Est Glom Filt Rate - Afr Amer 85 mL/min (>60); Estimated Creatinine Clearance 48.76 ml/min; Globulin 4.3 g/dL (2.2-4.2); Glucose 190 mg/dL (74-106); Potassium 3.8 mmol/L (3.5-5.1); Protein, Total 6.5 g/dL (6.4-8.2); Sodium Level 140 mmol/L (136-145)
[2020-05-19 05:35] LABS: Neutrophil-Segmented 95 % (47-70); Platelet Estimate SLT (ADEQ); Red Cell Morphology NORM C+C NORMAL (NORM C&C); Scan Smear per Review Criteria MANUAL DIFF; Total Cells Counted 100 (MANUAL DIFF)
[2020-05-19 05:36] LABS: Absolute Neutrophil Count 9.7 X10^3/uL (2.0-7.7); Neutrophil # 9.66 X10^3/uL (2.7-7.7)
[2020-05-19] MEDS: TITRATION PARAMETER CHANGE 1 EACH IV (05:41)
[2020-05-19] MEDS: Propofol 10MG/Ml 1,000 MG/100 ML Bottle 7.3 MG CONT INF (06:47)
--- NOTE | 2020-05-19 07:09 | PCM.PN.HOSP ---
Patient Problems: Active and Suspected Problems (Last Updated 05/16/20 @ 05:[address] Timothy Crews MD) COVID-19 virus detected (Acute) Pneumonia due to 2019 novel coronavirus (Acute) Reason for Visit: Follow-up on acute COVID 19 pneumonia/respiratory failure Subjective: Patient was seen and examined. Overnight, there was difficulty in keeping his oxygenation with increasing her PEEP. Repeat chest x-ray showed pneumothorax -new right-sided with persistent bilateral infiltrations worse in the right lung. She is status post chest tube placement. Oxygen requirements have been better after chest tube was placed. Objective: Physical exam: General: Sedated, intubated, on mechanical ventilator HEENT: Atraumatic, PERRLA, EOMI, Normocephalic Oral: Moist Mucosa Neck: Supple Lungs: Diminished Cardiovascular: Regular rate, Regular Rhythm, Normal S1, Normal S2, No murmurs Abdomen: Bowel Sounds Present, Soft, Non Tender, Non-Distended, No Hepato-splenomegaly Extremities: No edema Skin: No rashes Musculoskeletal: No Tenderness to Palpation of Joints or Extremities Lymphatic: No Cervical, Supraclavicular, or Inguinal Adenopathy Neurological: Cranial nerves II-XII grossly intact Psych/Mental Status: Normal Affect, Appropriate Vitals/I&O's: Vital Signs Temp Pulse Resp BP Pulse Ox 96.8 F L 90 22 H 124/77 H 92 05/19/20 04:00 05/19/20 06:00 05/19/20 06:00 05/19/20 06:00 05/19/20 06:00 Oxygen Flow Rate (L/min) 15 Oxygen Delivery Method Mechanical Ventilator Weight: 80.6 kg Body Mass Index (BMI) 32.2 Intake and Output for Last 24 Hours 05/17/20 05/18/20 05/19/20 23:59 23:59 23:59 Intake Total 992.64 / 997.97 1074.96 / 1089.96 930.22 / 930.22 Output Total 650 / 950 1350 / 1475 300 / 300 Balance 342.64 / 47.97 -275.04 / -385.04 630.22 / 630.22 Microbiology Past 72 Hours 05/16/20 00:12 Urine Catheter - Catheter Urine Culture - Final Culture exhibits no growth. 05/16/20 04:00 Blood Culture (Wb) - Anticubital Left Blood Culture - Preliminary Gram negative sylvia 05/15/20 23:56 Blood Culture (Wb) - Right Forearm Blood Culture - Preliminary No growth in 48 hours. 05/16/20 06:00 Urine, Clean Catch Streptococcus pneumoniae Antigen (M - Final 05/16/20 06:00 Urine, Clean Catch Legionella Antigen - Final Laboratory Results 05/18/20 18:30: Procalcitonin 0.52 H 05/19/20 04:20: WBC 10.1, RBC 4.43, Hgb 13.3, Hct 40.2, MCV 90.7, MCH 30.0, MCHC 33.1, RDW Std Deviation 44.2 H, RDW Coeff of [place] 13.2, Plt Count 314, MPV 10.2, Immature Gran % (Auto) [employer] INSTALLER, Neut % (Auto) [employer] INST[employer]ER, Lymph % (Auto) [employer]ST[employer]ER, [place] % (Auto) LIN[employer] INSTALLER, Eos % (Auto) LINO[employer] INSTALLER, Baso % (Auto) [employer]ST[employer]ER, Absolute Neuts (auto) 9.7 H, Absolute Lymphs (auto) 0.30 L, Total Counted 100, Neutrophils % (Manual) 95 H, Lymphocytes % (Manual) 3 L, Blast Cells % 2 H*, Nucleated RBC % 0, Diff Path Review May foll, Platelet Estimate SLT, RBC Morphology NORM C+C 05/19/20 04:20: Sodium 140, Potassium 3.8, Chloride 103, Carbon Dioxide 28.0, Anion Gap 9, BUN 20 H, Creatinine 0.85, Estim Creat Clear Calc 48.76, Est GFR (MDRD) Af Amer 85, Est GFR (MDRD) Non-Af 70, BUN/Creatinine Ratio 23.6 H, Glucose 190 H, Calcium 8.5, Total Bilirubin 0.60, AST 34, ALT 21, Alkaline Phosphatase 60, Total Protein 6.5, Albumin 2.2 L, Globulin 4.3 H, Albumin/Globulin Ratio 0.5 L Current Medications Acetaminophen (Acetaminophen 650 Mg/20 Ml Udc) 650 mg GT Q6H PRN PRN PRN Reason: Pain Score 1-10/Temp > 100.7 F Albuterol Sulfate (Albuterol Ih 8.5 Gm (Proair) Inhaler (200 Puffs)) 2 puff INHALATION Q4H PRN PRN PRN Reason: SOB &/OR WHEEZING Carbidopa/Levodopa (Carbidopa/Levodopa 25/250 Tablet) 1 tablet GT 0400,1000,1600,2200 [facility] Last Admin: 05/19/20 04:15 Dose: 1 tablet Documented by: Chlorhexidine Gluconate (Chlorhexidine 15 Ml) 15 ml PO BID [facility] Last Admin: 05/18/20 21:15 Dose: 15 ml Documented by: Dexamethasone (Dexamethasone 4 Mg Tablet) 6 mg GT DAILY@0800 [facility] Stop: 05/25/20 08:01 Last Admin: 05/18/20 11:35 Dose: 6 mg Documented by: Enoxaparin Sodium (Enoxaparin 30 Mg/0.3 Ml Syringe) 30 mg SC BID [facility] Last Admin: 05/18/20 22:22 Dose: 30 mg Documented by: Famotidine (Famotidine 20 Mg Tablet) 20 mg GT DAILY [facility] Last Admin: 05/18/20 11:34 Dose: 20 mg Documented by: Sodium Chloride () 250 mls @ 15 mls/hr IV .[id number] PRN PRN Reason: Saline Flush Last Infusion: 05/18/20 22:00 Dose: 15 mls/hr Documented by: Sodium Chloride () 250 mls @ 15 mls/hr IV .[id number] PRN PRN Reason: Additional IVPB Infusion Propofol (Diprivan) 1,000 mg in 100 mls @ 4.836 mls/hr CONT INF .Q12H [facility]; Protocol Last Admin: 05/19/20 06:47 Dose: 15 mcg/kg/min, 7.3 mls/hr Documented by: Fentanyl Citrate 1,000 mcg/ (Sodium Chloride) 100 mls @ 2.5 mls/hr CONT INF .Q40H [facility]; Protocol Last Titration: 05/19/20 06:00 Dose: 100 mcg/hr, 10 mls/hr Documented by: Norepinephrine Bitartrate 8 mg (/ Sodium Chloride) 250 mls @ 9.375 mls/hr CONT INF .[id number] [facility]; Protocol Last Titration: 05/19/20 06:00 Dose: 4 mcg/min, 7.5 mls/hr Documented by: Piperacillin Sod/Tazobactam (Sod 3.375 gm/ Sodium Chloride) 50 mls @ 12.5 mls/hr IV Q8@0200,1000,1800 [facility] Last Infusion: 05/19/20 06:51 Dose: Infused Documented by: Enteral Nutritional Formula (Vital Af 1.2 Rg Liquid) 1,000 mls @ 60 mls/hr GT .[id number] [facility] Last Admin: 05/19/20 06:36 Dose: 60 mls/hr Documented by: Lorazepam (Lorazepam 2 Mg/Ml Syringe) 2 mg IM Q6H PRN PRN PRN Reason: AGITATION Last Admin: 05/17/20 19:55 Dose: 2 mg Documented by: Melatonin (Melatonin 3 Mg Tablet) 3 mg GT QHS PRN PRN PRN Reason: INSOMNIA Ondansetron HCl (Ondansetron 4 Mg/2 Ml Vial) 4 mg IV Q8H PRN PRN PRN Reason: NAUSEA/VOMITING Pramipexole Dihydrochloride (Pramipexole Di-Hcl 1 Mg Tablet) 1.5 mg GT TIDCM [facility] Last Admin: 05/18/20 18:33 Dose: 1.5 mg Documented by: Rasagiline (Rasagiline Mesylate 1 Mg Tablet) 1 mg GT DAILY [facility] Last Admin: 05/18/20 11:36 Dose: 1 mg Documented by: Sodium Chloride (0.9% Saline Lock 10 Ml Syringe) 10 - 40 ml IV UD PRN PRN Reason: SALINE FLUSH Last Admin: 05/19/20 04:22 Dose: 40 ml Documented by: STROKE Vital Signs/Narrative: Vital Signs Temp Pulse Resp BP Pulse Ox 05/19/20 06:00 90 22 H 124/77 H 92 05/19/20 05:15 86 19 H 111/69 93 05/19/20 05:00 86 20 H 95/67 87 05/19/20 04:45 84 19 H 98/63 85 05/19/20 04:30 84 20 H 105/68 87 05/19/20 04:21 85 20 H 87 05/19/20 04:15 86 19 H 87/58 L 88 05/19/20 04:00 96.8 F L 86 19 H 79/49 L 90 05/19/20 03:15 82 19 H 98/67 93 Medical Necessity - Tobacco Use Smoking Status: Never smoker Assessment/Plan All Active Problems (Last Updated 05/16/20 @ 05:[address] Timothy Crews MD) COVID-19 virus detected (Acute) Pneumonia due to 2019 novel coronavirus (Acute) 1. Acute hypoxic respiratory failure secondary to Acute COVID-19 infection/new right pneumothorax Intubated, on mechanical ventilator, pulmonology following 2. Acute pneumothorax status post chest tube placement General surgery following, will continue to monitor 3. Acute metabolic encephalopathy/delirium secondary to COVID-19 infection/pneumonia/hypoxia and bacteremia, Patient is currently intubated 4. Acute COVID-19 infection/pneumonia, severe with hypoxia CTA was negative for acute PE, showed multifocal infiltrates On IV dexamethasone and redemsivir. Not a candidate for plasma. 5. Septic shock/Gram neg bacteremia, unclear etiology started on IV Zosyn No fevers overnight. On Levophed Will continue to follow cultures, repeat blood cultures ID following 6. Parkinson's disease with probably dementia, Continue on Parkinson's disease meds 7. DVT PPx- Lovenox BID Inpatient E&M: [id number] Subs Hosp L3
--- NOTE | 2020-05-19 08:20 | RAD_ITS ---
STUDY: X-RAY CHEST REASON FOR EXAM: Female, 74 years old. HYPOXIA TECHNIQUE: Single AP portable view of the chest. COMPARISON: Comparison is made with prior study dated 05/17/2020. FINDINGS: Endotracheal tube is in situ. The tip is at 4.7 cm proximal to the fco. An orogastric tube is seen with the tip below the left hemidiaphragm. EKG electrodes are seen. There is evidence of a 20-25% right-sided pneumothorax. Dense consolidation in the right lung. Stable alveolar disease in the left lung. Normal size heart. Normal mediastinum and julia. Normal visualized pulmonary arteries. Normal visualized aortic arch and descending thoracic aorta. Normal visualized thoracic spine. Normal visualized ribs, clavicles, and shoulders. There is no demonstrated abnormality of the visualized soft tissue structures of the upper abdomen. RAD/Chest 1 View (Portable) IMPRESSION: There is a new 2225% right-sided pneumothorax with persistent bilateral infiltrations worse in the right lung. Electronically Signed: Ar [place], at 12:19 EDT , Service support ,
[2020-05-19] MEDS: Enoxaparin 30 MG/0.3 ML Syringe SC ×2 (08:30→20:52)
[2020-05-19] MEDS: Famotidine 20 MG Tablet GT ×2 (08:31→20:53)
[2020-05-19] MEDS: dexAMETHasone 4 MG Tablet 6 MG GT (08:31)
[2020-05-19] MEDS: Pramipexole Di-HCl 1 MG Tablet 1.5 MG GT ×3 (08:32→16:25)
[2020-05-19] MEDS: Chlorhexidine 15 ML PO ×2 (08:33→20:53)
--- NOTE | 2020-05-19 09:03 | PCM.PN.INT ---
Subjective: Patient continues to have marginal and variable oxygenation. Patient did have to go up on PEEP overnight. Patient's blood pressures have also been marginal requiring addition of Levophed. Patient is not very interactive. Patient reportedly is tolerating tube feeds. Objective: Chest x-ray was ordered and reviewed this morning. This shows a new onset of right-sided pneumothorax. General: - - Intubated and sedated. Not following commands. Little tremor noted at this time. HEENT: Atraumatic, PERRLA, EOMI, Normocephalic, - - No scleral icterus or injection noted Oral: Moist Mucosa, No Gingival or Mucosal Lesions/ Ulcerations Neck: Supple, No Nodes, Trachea Midline, JVD, Right Lungs: No wheeze, No rales, Diminished, Rhonchi - Bilateral, - - Symmetric expansion. No dullness to percussion. Cardiovascular: Regular rate, Regular Rhythm, Normal S1, Normal S2, No murmurs, No rub noted, No Gallop Abdomen: Bowel Sounds Present, Soft, Non Tender, Non-Distended, Obese Extremities: No cyanosis, Diminished Peripheral Pulses, Edema Skin: - - Drew appearance. Musculoskeletal: No Tenderness to Palpation of Joints or Extremities Lymphatic: No Cervical, Supraclavicular, or Inguinal Adenopathy Neurological: Cranial nerves II-XII grossly intact, Neuro grossly intact, Motor Exam 5/5 strength throughout Psych/Mental Status: Flat Affect Vital Signs Temp Pulse Resp BP Pulse Ox 36.1 C L 97 20 H 130/83 H 92 05/19/20 08:00 05/19/20 08:00 05/19/20 08:00 05/19/20 08:00 05/19/20 08:00 Oxygen Flow Rate (L/min) 15 Oxygen Delivery Method Mechanical Ventilator Weight: 80.6 kg Body Mass Index (BMI) 32.2 Intake and Output for Last 24 Hours 05/17/20 05/18/20 05/19/20 23:59 23:59 23:59 Intake Total 992.64 / 997.97 1074.96 / 1089.96 974.10 / 974.10 Output Total 650 / 950 1350 / 1475 300 / 300 Balance 342.64 / 47.97 -275.04 / -385.04 674.10 / 674.10 Labs (Last 48 Hours) 1005/17/20 05/17/20 08:14 12:00 21:50 WBC 7.9 RBC 4.55 Hgb 13.9 Hct 40.5 MCV 89.0 MCH 30.5 MCHC 34.3 RDW Std Deviation 42.0 RDW Coeff of [place] 12.8 Plt Count 293 MPV 9.8 Immature Gran % (Auto) 0.600 Neut % (Auto) 92.6 H Lymph % (Auto) 4.4 L [place] % (Auto) 2.3 Eos % (Auto) 0.0 Baso % (Auto) 0.1 Absolute Neuts (auto) 7.3 Absolute Lymphs (auto) 0.35 L Total Counted Neutrophils % (Manual) Lymphocytes % (Manual) Blast Cells % Nucleated RBC % 0 Differential Comment COMMENT Diff Path Review Reviewed Atypical Lymphocytes Platelet Estimate ADEQUATE RBC Morphology Specimen Type ART Sample Site R Radial pH 7.51 H Bicarbonate Actual 24.4 Total CO2 25 Base Excess 1 O2 Saturation 90 L O2 % ABG pCO2 30.6 L ABG pO2 51 L Cameron Test Positive Respiration Rate O2 Delivery Device Cannula Vent Mode Tidal Volume POC PEEP Sodium Potassium Chloride Carbon Dioxide Anion Gap BUN Creatinine Estim Creat Clear Calc Est GFR (MDRD) Af Amer Est GFR (MDRD) Non-Af BUN/Creatinine Ratio Glucose Calcium Magnesium Total Bilirubin AST ALT Alkaline Phosphatase Total Creatine Kinase B-Natriuretic Peptide Total Protein Albumin Globulin Albumin/Globulin Ratio Triglycerides Procalcitonin 05/17/20 05/17/20 05/17/20 21:50 21:50 23:38 WBC RBC Hgb Hct MCV MCH MCHC RDW Std Deviation RDW Coeff of [place] Plt Count MPV Immature Gran % (Auto) Neut % (Auto) Lymph % (Auto) [place] % (Auto) Eos % (Auto) Baso % (Auto) Absolute Neuts (auto) Absolute Lymphs (auto) Total Counted Neutrophils % (Manual) Lymphocytes % (Manual) Blast Cells % Nucleated RBC % Differential Comment Diff Path Review Atypical Lymphocytes Platelet Estimate RBC Morphology Specimen Type ART Sample Site L Radial pH 7.49 H Bicarbonate Actual 23.4 Total CO2 24 Base Excess 0 O2 Saturation 99 O2 % 100 ABG pCO2 31.0 L ABG pO2 106 H Cameron Test Respiration Rate 14 O2 Delivery Device Adult Vent Vent Mode AC Tidal Volume 450 POC PEEP 10 Sodium 136 Potassium 3.6 Chloride 102 Carbon Dioxide 22.0 Anion Gap 12 BUN 18 Creatinine 1.11 H Estim Creat Clear Calc 37.34 Est GFR (MDRD) Af Amer 62 Est GFR (MDRD) Non-Af 51 L BUN/Creatinine Ratio 16.2 Glucose 155 H Calcium 8.5 Magnesium Total Bilirubin AST ALT Alkaline Phosphatase Total Creatine Kinase 349 H B-Natriuretic Peptide Total Protein Albumin Globulin Albumin/Globulin Ratio Triglycerides 126 Procalcitonin 05/18/20 05/18/20 05/18/20 03:15 03:15 03:15 WBC 9.5 RBC 4.62 Hgb 13.7 Hct 41.0 MCV 88.7 MCH 29.7 MCHC 33.4 RDW Std Deviation 43.0 RDW Coeff of [place] 13.1 Plt Count 328 MPV 9.9 Immature Gran % (Auto) 0.800 Neut % (Auto) 87.8 H Lymph % (Auto) 9.0 L [place] % (Auto) 2.4 Eos % (Auto) 0.0 Baso % (Auto) 0.0 Absolute Neuts (auto) 8.3 H Absolute Lymphs (auto) 0.85 Total Counted Neutrophils % (Manual) Lymphocytes % (Manual) Blast Cells % Nucleated RBC % 0 Differential Comment SCANNED Diff Path Review Atypical Lymphocytes RARE Platelet Estimate ADEQUATE RBC Morphology Specimen Type Sample Site pH Bicarbonate Actual Total CO2 Base Excess O2 Saturation O2 % ABG pCO2 ABG pO2 Cameron Test Respiration Rate O2 Delivery Device Vent Mode Tidal Volume POC PEEP Sodium 136 Potassium 3.6 Chloride 100 Carbon Dioxide 24.0 Anion Gap 12 BUN 21 H Creatinine 1.37 H Estim Creat Clear Calc 30.25 Est GFR (MDRD) Af Amer 49 L Est GFR (MDRD) Non-Af 40 L BUN/Creatinine Ratio 15.3 Glucose 159 H Calcium 8.5 Magnesium 2.0 Total Bilirubin AST ALT Alkaline Phosphatase Total Creatine Kinase B-Natriuretic Peptide Total Protein Albumin Globulin Albumin/Globulin Ratio Triglycerides Procalcitonin 05/18/20 05/18/20 05/19/20 03:15 18:30 04:20 WBC 10.1 RBC 4.43 Hgb 13.3 Hct 40.2 MCV 90.7 MCH 30.0 MCHC 33.1 RDW Std Deviation 44.2 H RDW Coeff of [place] 13.2 Plt Count 314 MPV 10.2 Immature Gran % (Auto) CAN TECHNICIAN Neut % (Auto) CAN TECHNICIAN Lymph % (Auto) CAN TECHNICIAN [place] % (Auto) CAN TECHNICIAN Eos % (Auto) CAN TECHNICIAN Baso % (Auto) CAN TECHNICIAN Absolute Neuts (auto) 9.7 H Absolute Lymphs (auto) 0.30 L Total Counted 100 Neutrophils % (Manual) 95 H Lymphocytes % (Manual) 3 L Blast Cells % 2 H* Nucleated RBC % 0 Differential Comment Diff Path Review May foll Atypical Lymphocytes Platelet Estimate SLT RBC Morphology NORM C+C Specimen Type Sample Site pH Bicarbonate Actual Total CO2 Base Excess O2 Saturation O2 % ABG pCO2 ABG pO2 Cameron Test Respiration Rate O2 Delivery Device Vent Mode Tidal Volume POC PEEP Sodium Potassium Chloride Carbon Dioxide Anion Gap BUN Creatinine Estim Creat Clear Calc Est GFR (MDRD) Af Amer Est GFR (MDRD) Non-Af BUN/Creatinine Ratio Glucose Calcium Magnesium Total Bilirubin AST ALT Alkaline Phosphatase Total Creatine Kinase B-Natriuretic Peptide 80.0 Total Protein Albumin Globulin Albumin/Globulin Ratio Triglycerides Procalcitonin 0.52 H 05/19/20 04:20 WBC RBC Hgb Hct MCV MCH MCHC RDW Std Deviation RDW Coeff of [place] Plt Count MPV Immature Gran % (Auto) Neut % (Auto) Lymph % (Auto) [place] % (Auto) Eos % (Auto) Baso % (Auto) Absolute Neuts (auto) Absolute Lymphs (auto) Total Counted Neutrophils % (Manual) Lymphocytes % (Manual) Blast Cells % Nucleated RBC % Differential Comment Diff Path Review Atypical Lymphocytes Platelet Estimate RBC Morphology Specimen Type Sample Site pH Bicarbonate Actual Total CO2 Base Excess O2 Saturation O2 % ABG pCO2 ABG pO2 Cameron Test Respiration Rate O2 Delivery Device Vent Mode Tidal Volume POC PEEP Sodium 140 Potassium 3.8 Chloride 103 Carbon Dioxide 28.0 Anion Gap 9 BUN 20 H Creatinine 0.85 Estim Creat Clear Calc 48.76 Est GFR (MDRD) Af Amer 85 Est GFR (MDRD) Non-Af 70 BUN/Creatinine Ratio 23.6 H Glucose 190 H Calcium 8.5 Magnesium Total Bilirubin 0.60 AST 34 ALT 21 Alkaline Phosphatase 60 Total Creatine Kinase B-Natriuretic Peptide Total Protein 6.5 Albumin 2.2 L Globulin 4.3 H Albumin/Globulin Ratio 0.5 L Triglycerides Procalcitonin Microbiology 05/16/20 00:12 Urine Catheter - Catheter Urine Culture - Final Culture exhibits no growth. 05/16/20 04:00 Blood Culture (Wb) - Anticubital Left Blood Culture - Preliminary Gram negative sylvia 05/15/20 23:56 Blood Culture (Wb) - Right Forearm Blood Culture - Preliminary No growth in 48 hours. Medical Necessity - Tobacco Use Smoking Status: Never smoker Assessment/Plan All Active Problems (Last Updated 05/16/20 @ 05:[address] Timothy Crews MD) COVID-19 virus detected (Acute) Pneumonia due to 2019 novel coronavirus (Acute) RECOMMENDATIONS: 1. Continue mechanical ventilation. Wean supplemental oxygen to maintain saturations at or above 90%. 2. Continue Decadron 6 mg daily x10 days. 3. Defer antimicrobial management to infectious diseases. 4. Continue Parkinson's meds to help with vent liberation 5. Monitor daily weights, possible diuretic challenge IMPRESSIONS: 1. Acute hypoxemic respiratory failure secondary to COVID-19 pneumonia Patient with acute decompensation overnight. Infiltrates appear to be progressive on chest x-ray. It is unclear if patient has a superinfection as she is now growing gram-negative rods in her blood. Await species and sensitivities. BNP was not significantly elevated to suggest CHF as an etiology. Continue to wean PEEP and FiO2 as tolerated. Spontaneous breathing and awakening trials per protocol. Patient with protracted presentation, so was not initiated on plasma or remdesivir. Patient may require transition to Precedex to facilitate liberation from the ventilator, but trying to stabilize respiratory status prior to transition. Patient with multiple possible etiologies leading to ARDS. 2. Gram-negative sepsis Blood cultures have come back positive for gram-negative sepsis. Exact source is unclear at this time. Infectious disease is following. Patient initial pro calcitonin was relatively low. Wean Levophed as tolerated to maintain a map above 65. This may have added to patient's acute hypoxemic respiratory failure. Unlikely the patient would require stress dose steroids given Decadron being used for COVID-19 pneumonia 3. Advanced age/Parkinson's disease Complicates care, management, recovery and prognosis. Continue home medications as indicated. Continue Parkinson's meds to help with liberation from the ventilator. Some concern for an element of dementia adding to risk for delirium. Continue with appropriate protocol 4. New right-sided pneumothorax Clinical suspicion for complications secondary to #1. Patient is not demonstrating tension physiology at this time. Patient is on positive ventilation and this may account for some of the hypotension and need for pressors. Will consult surgery urgently to see if the chest tube can be placed. TIME: 38 minutes critical care time spent addressing patient's acute hypoxic respiratory failure, gram-negative sepsis, review of all data and collaboration with care team (7:05 AM to 8:05 AM) [phone]: [id number] Critical care first hour
[2020-05-19 09:20] LABS: Lymphocyte 5 % (19-41)
--- NOTE | 2020-05-19 09:41 | CON.PCM_ITS ---
Reason for Consult History of Present Illness: The patient is a 74 year old F In the ICU due to Covid on a mechanical ventilator. Patient desatted last night and required more FiO2. Attempt to increase the PEEP resulted in further decline chest x-ray was obtained and a right pneumothorax was seen.Consent was obtained over the phone from the patient's son. Patient is also currently on pressors due to gram-negative sepsis on blood cultures. Past Medical History Medical History: Medical History (Last Updated 05/16/20 @ 05:[address] Timothy Crews MD) Parkinsons disease G20 Allergies No Known Allergies Allergy (Verified 05/16/20 05:46) Home Medications: Ambulatory Orders Medication Instructions Recorded Carbidopa/Levodopa 25/250 [Sinemet] 1 tab PO 4X/DAY 05/15/20 Pramipexole Di-HCl [Mirapex] 1.5 mg PO TID 05/15/20 Rasagiline Mesylate [Azilect] 1 mg PO DAILY 05/15/20 Surgical History: no surgical history Lives: Spouse/ Significant Other Smoking Status: Never smoker Alcohol: None Drugs: None - *Family History Maternal History Items: - - Patient reported that her mother of old age. Paternal History Items: - - Patient denies paternal medical history. Review of Systems Unable to obtain accurate/complete ROS d/t: Patient is intubated and sedated Patient Problems: Active and Suspected Problems (Last Updated 05/16/20 @ 05:[address] Timothy Crews MD) COVID-19 virus detected (Acute) Pneumonia due to 2019 novel coronavirus (Acute) - Physical Exam Vitals/I&O's: Vital Signs Temp Pulse Resp BP Pulse Ox 97 F L 90 20 H 115/71 93 05/19/20 08:00 05/19/20 09:00 05/19/20 09:00 05/19/20 09:00 05/19/20 09:00 Oxygen Flow Rate (L/min) 15 Oxygen Delivery Method Mechanical Ventilator Weight: 177 lb 11.081 oz Body Mass Index (BMI) 32.2 Intake and Output for Last 24 Hours 05/17/20 05/18/20 05/19/20 23:59 23:59 23:59 Intake Total 992.64 / 997.97 1074.96 / 1089.96 1098.90 / 1098.90 Output Total 650 / 950 1350 / 1475 375 / 375 Balance 342.64 / 47.97 -275.04 / -385.04 723.90 / 723.90 General: - - Intubated and sedated HEENT: - - ET T and OG present Lungs: - - Decreased on the right Cardiovascular: Regular rate Abdomen: Soft, Non-Distended Extremities: No clubbing, No cyanosis Neurological: - - Intubated and sedated Microbiology Past 72 Hours 05/16/20 00:12 Urine Catheter - Catheter Urine Culture - Final Culture exhibits no growth. 05/16/20 04:00 Blood Culture (Wb) - Anticubital Left Blood Culture - Preliminary Gram negative sylvia 05/15/20 23:56 Blood Culture (Wb) - Right Forearm Blood Culture - Preliminary No growth in 48 hours. 05/16/20 06:00 Urine, Clean Catch Streptococcus pneumoniae Antigen (M - Final 05/16/20 06:00 Urine, Clean Catch Legionella Antigen - Final Laboratory Results 05/18/20 18:30: Procalcitonin 0.52 H 05/19/20 04:20: WBC 10.1, RBC 4.43, Hgb 13.3, Hct 40.2, MCV 90.7, MCH 30.0, MCHC 33.1, RDW Std Deviation 44.2 H, RDW Coeff of [place] 13.2, Plt Count 314, MPV 10.2, Immature Gran % (Auto) SASH INSTALLER, Neut % (Auto) SASH INSTALLER, Lymph % (Auto) SASH INSTALLER, [place] % (Auto) SASH INSTALLER, Eos % (Auto) SASH INSTALLER, Baso % (Auto) SASH INSTALLER, Absolute Neuts (auto) 9.7 H, Absolute Lymphs (auto) 0.30 L, Total Counted 100, Neutrophils % (Manual) 95 H, Lymphocytes % (Manual) 5 L, Blast Cells % Not Reportable, Nucleated RBC % 0, Diff Path Review November corinne, Platelet Estimate SLT, RBC Morphology NORM C+C 05/19/20 04:20: Sodium 140, Potassium 3.8, Chloride 103, Carbon Dioxide 28.0, Anion Gap 9, BUN 20 H, Creatinine 0.85, Estim Creat Clear Calc 48.76, Est GFR (MDRD) Af Amer 85, Est GFR (MDRD) Non-Af 70, BUN/Creatinine Ratio 23.6 H, Glucose 190 H, Calcium 8.5, Total Bilirubin 0.60, AST 34, ALT 21, Alkaline Phosphatase 60, Total Protein 6.5, Albumin 2.2 L, Globulin 4.3 H, Albumin/Globulin Ratio 0.5 L Current Medications Acetaminophen (Acetaminophen 650 Mg/20 Ml Udc) 650 mg GT Q6H PRN PRN PRN Reason: Pain Score 1-10/Temp > 100.7 F Albuterol Sulfate (Albuterol Ih 8.5 Gm (Proair) Inhaler (200 Puffs)) 2 puff INHALATION Q4H PRN PRN PRN Reason: SOB &/OR WHEEZING Carbidopa/Levodopa (Carbidopa/Levodopa 25/250 Tablet) 1 tablet GT 0400,1000,1600,2200 [facility] Last Admin: 05/19/20 08:31 Dose: 1 tablet Documented by: Chlorhexidine Gluconate (Chlorhexidine 15 Ml) 15 ml PO BID [facility] Last Admin: 05/19/20 08:33 Dose: 15 ml Documented by: Dexamethasone (Dexamethasone 4 Mg Tablet) 6 mg GT DAILY@0800 [facility] Stop: 05/25/20 08:01 Last Admin: 05/19/20 08:31 Dose: 6 mg Documented by: Enoxaparin Sodium (Enoxaparin 30 Mg/0.3 Ml Syringe) 30 mg SC BID [facility] Last Admin: 05/19/20 08:30 Dose: 30 mg Documented by: Famotidine (Famotidine 20 Mg Tablet) 20 mg GT DAILY [facility] Last Admin: 05/19/20 08:31 Dose: 20 mg Documented by: Sodium Chloride () 250 mls @ 15 mls/hr IV .[id number] PRN PRN Reason: Saline Flush Last Infusion: 05/18/20 22:00 Dose: 15 mls/hr Documented by: Sodium Chloride () 250 mls @ 15 mls/hr IV .[id number] PRN PRN Reason: Additional IVPB Infusion Propofol (Diprivan) 1,000 mg in 100 mls @ 4.836 mls/hr CONT INF .Q12H [facility]; Protocol Last Titration: 05/19/20 09:00 Dose: 15 mcg/kg/min, 7.3 mls/hr Documented by: Fentanyl Citrate 1,000 mcg/ (Sodium Chloride) 100 mls @ 2.5 mls/hr CONT INF .Q40H [facility]; Protocol Last Titration: 05/19/20 09:00 Dose: 100 mcg/hr, 10 mls/hr Documented by: Norepinephrine Bitartrate 8 mg (/ Sodium Chloride) 250 mls @ 9.375 mls/hr CONT INF .[id number] [facility]; Protocol Last Titration: 05/19/20 09:00 Dose: 4 mcg/min, 7.5 mls/hr Documented by: Piperacillin Sod/Tazobactam (Sod 3.375 gm/ Sodium Chloride) 50 mls @ 12.5 mls/hr IV Q8@0200,1000,1800 [facility] Last Infusion: 05/19/20 06:51 Dose: Infused Documented by: Enteral Nutritional Formula (Vital Af 1.2 Rg Liquid) 1,000 mls @ 60 mls/hr GT .[id number] [facility] Last Admin: 05/19/20 08:30 Dose: 60 mls/hr Documented by: Lorazepam (Lorazepam 2 Mg/Ml Syringe) 2 mg IM Q6H PRN PRN PRN Reason: AGITATION Last Admin: 05/17/20 19:55 Dose: 2 mg Documented by: Melatonin (Melatonin 3 Mg Tablet) 3 mg GT QHS PRN PRN PRN Reason: INSOMNIA Ondansetron HCl (Ondansetron 4 Mg/2 Ml Vial) 4 mg IV Q8H PRN PRN PRN Reason: NAUSEA/VOMITING Pramipexole Dihydrochloride (Pramipexole Di-Hcl 1 Mg Tablet) 1.5 mg GT TIDCM [facility] Last Admin: 05/19/20 08:32 Dose: 1.5 mg Documented by: Rasagiline (Rasagiline Mesylate 1 Mg Tablet) 1 mg GT DAILY [facility] Last Admin: 05/19/20 08:31 Dose: 1 mg Documented by: Sodium Chloride (0.9% Saline Lock 10 Ml Syringe) 10 - 40 ml IV UD PRN PRN Reason: SALINE FLUSH Last Admin: 05/19/20 04:22 Dose: 40 ml Documented by: Assessment/Plan All Active Problems (Last Updated 05/16/20 @ 05:[address] Timothy Crews MD) COVID-19 virus detected (Acute) Pneumonia due to 2019 novel coronavirus (Acute) 74-year-old female on mechanical ventilator due to Covid, right pneumothorax Consent was obtained via the son over the phone for a right chest tube due to right pneumothorax.Will place the right Chest tube Marina Tom M.D. Pager: [phone] [facility] [address] [place] [address], [facility], [address] [place] [address] Office: [phone] Inpatient E&M: 22188 Init Hosp L2
[2020-05-19] MEDS: Midazolam 2 MG/2 ML Syringe IV (10:00)
--- NOTE | 2020-05-19 10:40 | RAD_ITS ---
STUDY: X-RAY CHEST REASON FOR EXAM: Female, 74 years old. CHEST TUBE PLACEMENT TECHNIQUE: Single AP portable view of the chest. COMPARISON: Comparison is made with prior examination dated 05/19/2020 at 10:16 AM. FINDINGS: A right-sided small caliber chest tube has been placed. The tip is along the lateral aspect of the right lung. No definite pneumothorax is seen. An endotracheal tube is seen with the tip at 4.3 cm proximal to the fco. An orogastric tube is seen with the tip below the left hemidiaphragm. EKG electrodes are seen. A right-sided PICC line catheter is in place with the tip at the junction of the superior vena cava and right atrium. Stable bilateral pulmonary infiltrates. There is no demonstrated pleural abnormality. Normal size heart. Normal mediastinum and julia. Normal visualized pulmonary arteries. Normal visualized aortic arch and descending thoracic aorta. Normal visualized thoracic spine. Normal visualized ribs, clavicles, and shoulders. There is no demonstrated abnormality of the visualized soft tissue structures of the upper abdomen. RAD/Chest 1 View (Portable) IMPRESSION: Stable bilateral pulmonary infiltrates. A small caliber right-sided chest tube has been placed. No significant stenosis seen. The support tubes are all in good position. Electronically Signed: Ar Washington, at 10:54 EDT , Service support ,
--- NOTE | 2020-05-19 10:43 | PCM.OPRPT ---
Report of Operation Date of Procedure: 05/19/20 Pre-Operative Diagnosis: Right pneumothorax on ventilator Post-Operative Diagnosis: Right pneumothorax resolved?Lung reexpanded with placement of right chest tube Surgery/Procedure Performed:: Placement of right 14 [place] chest tube Type of Anesthesia:: Local Special Medications: pt sedated in ICU due to ventilator Specimen's removed: none Estimated Blood Loss (mL): Minimal Description of Procedure: 74-year-old female admitted and on mechanical ventilation due to Covid. Patient had desaturation overnight and with increased PEEP her sats would not improve chest x-ray did show a right pneumothorax.Consent was obtained from patient's son over the phone. Description: Due to patient's presentation with Covid appropriate PPE with papr and gown and gloves was used. Patient was previously sedated due to the mechanical ventilation. Patient's right arm was placed overhead lateral inframammary fold was located. Site was cleaned with chlorhexidine. Area was prepped and draped in usual sterile fashion. Local anesthesia 5% lidocaine total of 4 cc was used. And small incision was made with a 11 blade scalpel. Aspiration needle was used to find the rib and go just over the rib area was easily aspirated. The guidewire was ran through the needle. Needle was removed. The dilator was used to dilate the track. Dilator removed and 14 [place] Smith pneumothorax catheter was Inserted (reference [id number] lot [id number]). The stopcock was placed along with tubing to connect to the Pleur-evac. A rose of air bubbles were seen in the Pleur-evac. Then it continued intermittent bubbles.The catheter was secured with an 0 silk suture to the skin. Vaseline gauze as well as 4 x 4's and tape were used to further secure the tube. Patient tolerated procedure well.Patient's oxygenation did improve with placement of the tube chest x-ray was verified and showed good placement of the tube as well as expansion of the lung. - Complications none
--- NOTE | 2020-05-19 12:44 | PCM.NTREPORT ---
Nutrition Therapy Report - History Nutrition Services has been consulted to:: Manage enteral nutrition Current diet / nutrition support order:: Vital AF 1.2 at goal rate of 60mL/hour w/ 100mL H2O flush q 4 hours to provide 1728 calories, 108 g protein, and 1767mL total fluid/day - Anthropometric Measurements Height:: 5 ft 3 in Weight:: 80.6 kg Body Mass Index (BMI):: 31.4 - Relevant Labs Relevant Labs:: WBC 3.0 K/mm3 (4.4-11.0) L 05/16/20 08:14 RBC 4.01 M/mm3 (4.2-5.4) L 05/16/20 01:15 Hct 35.3 % (37-47) L 05/16/20 01:15 RDW Std Deviation 44.2 fl (35.1-43.9) H 05/19/20 04:20 Neut % (Auto) 87.8 % (47-70) H 05/18/20 03:15 Lymph % (Auto) 9.0 % (19-41) L 05/18/20 03:15 Absolute Neuts (auto) 9.7 X10^3/uL (2.0-7.7) H 05/19/20 04:20 Absolute Lymphs (auto) 0.30 X10^3/uL (0.83-4.51) L 05/19/20 04:20 Neutrophils % (Manual) 95 % (47-70) H 05/19/20 04:20 Lymphocytes % (Manual) 5 % (19-41) L 05/19/20 04:20 D-Dimer Quant (PE/DVT) 1.34 FEU/ug/m (0.27-0.49) H* 05/16/20 01:15 Sodium 134 mmol/L (136-145) L 05/16/20 01:15 Potassium 3.1 mmol/L (3.5-5.1) L 05/16/20 01:15 BUN 20 mg/dL (7-18) H 05/19/20 04:20 Creatinine 1.37 mg/dL (0.55-1.02) H 05/18/20 03:15 Est GFR (MDRD) Af Amer 49 mL/min (>60) L 05/18/20 03:15 Est GFR (MDRD) Non-Af 40 mL/min (>60) L 05/18/20 03:15 BUN/Creatinine Ratio 23.6 RATIO (10-20) H 05/19/20 04:20 Glucose 190 mg/dL (74-106) H 05/19/20 04:20 Calcium 8.1 mg/dL (8.5-10.1) L 05/16/20 01:15 AST 39 U/L (15-37) H 05/17/20 06:45 Total Creatine Kinase 349 U/L (26-192) H 05/17/20 21:50 Total Protein 6.0 g/dL (6.4-8.2) L 05/16/20 01:15 Albumin 2.2 g/dL (3.2-5.0) L 05/19/20 04:20 Globulin 4.3 g/dL (2.2-4.2) H 05/19/20 04:20 Albumin/Globulin Ratio 0.5 RATIO (0.9-2.4) L 05/19/20 04:20 Procalcitonin 0.52 ng/mL (0.00-0.09) H 05/18/20 18:30 - Assessment Food / Nutrition-Related History:: Discussed in ICU rounds. Pt intubated w/ OG in place. Chest tube placed this AM d/t R pneumothorax. Blood glucose elevated, on steroid. Nutrition support started- goal rate is 240mL for 4 hours w/ 100mL flush q 4 hours. Enteral nutrition being held for Sinemet. Will adjust rates to meet nutritional needs, see below. - Food / Nutrient Delivery Interventions Summary of nutrition intervention:: Sinemet administered at 0400, 1000, 1600, and 2200- should be held 30 minutes before or 1 hour after meals. Will adjust tube feeds to be provided over 16 hours. Nutrition support ordered as / adjusted to:: Vital AF 1.2 at goal rate of 90mL/hour w/ 100mL H2O flush q 4 hours to provide 1728 calories, 108 g protein, and 1767mL total fluid per day. For gravity bag-360mL every 4 hours (approx 30 drops/min, 8 drops per 15 seconds). Recommend feeding from [id number], 3829-4029, [id number], and [id number]. Total formula per 24 hours: 1440mL. - MNT Monitoring MNT Follow-up in:: 1-2 days
[2020-05-19] MEDS: Propofol 10MG/Ml 1,000 MG/100 ML Bottle 4.8 MG CONT INF ×2 (14:00→21:05)
--- NOTE | 2020-05-19 15:29 | PN.ID_ITS ---
Patient Problems: Active and Suspected Problems (Last Updated 05/16/20 @ 05:[address] Timothy Crews MD) COVID-19 virus detected (Acute) Pneumonia due to 2019 novel coronavirus (Acute) Subjective: On vent, no fever - Physical Exam Vitals/I&O's: Vital Signs Temp Pulse Resp BP Pulse Ox 96.9 F L 69 21 H 127/79 H 93 05/19/20 14:00 05/19/20 15:06 05/19/20 15:00 05/19/20 15:00 05/19/20 15:00 Oxygen Flow Rate (L/min) 15 Oxygen Delivery Method Mechanical Ventilator Weight: 80.6 kg Body Mass Index (BMI) 31.4 Intake and Output for Last 24 Hours 05/17/20 05/18/20 05/19/20 23:59 23:59 23:59 Intake Total 992.64 / 997.97 1074.96 / 1089.96 1607.98 / 1607.98 Output Total 650 / 950 1350 / 1475 550 / 550 Balance 342.64 / 47.97 -275.04 / -385.04 1057.98 / 1057.98 General: No apparent distress Lungs: Diminished Cardiovascular: Regular rate, Regular Rhythm Abdomen: Soft, Non Tender, Non-Distended Skin: No rashes Microbiology Past 72 Hours 05/16/20 04:00 Blood Culture (Wb) - Anticubital Left Blood Culture - Preliminary Gram negative sylvia Alpha Hemolytic Streptococcus Gram Positive Cocci 05/16/20 00:12 Urine Catheter - Catheter Urine Culture - Final Culture exhibits no growth. 05/15/20 23:56 Blood Culture (Wb) - Right Forearm Blood Culture - Preliminary No growth in 48 hours. Laboratory Results 05/18/20 18:30: Procalcitonin 0.52 H 05/19/20 04:20: WBC 10.1, RBC 4.43, Hgb 13.3, Hct 40.2, MCV 90.7, MCH 30.0, MCHC 33.1, RDW Std Deviation 44.2 H, RDW Coeff of [place] 13.2, Plt Count 314, MPV 10.2, Immature Gran % (Auto) [employer], Neut % (Auto) [employer], Lymph % (Auto) [employer]ER, [place] % (Auto) [employer] ASSEMBLER, Eos % (Auto) [employer]ER, Baso % (Auto) [employer], Absolute Neuts (auto) 9.7 H, Absolute Lymphs (auto) 0.30 L, Total Counted 100, Neutrophils % (Manual) 95 H, Lymphocytes % (Manual) 5 L, Blast Cells % Not Reportable, Nucleated RBC % 0, Diff Path Review May foll, Platelet Estimate SLT, RBC Morphology NORM C+C 05/19/20 04:20: Sodium 140, Potassium 3.8, Chloride 103, Carbon Dioxide 28.0, Anion Gap 9, BUN 20 H, Creatinine 0.85, Estim Creat Clear Calc 48.76, Est GFR (MDRD) Af Amer 85, Est GFR (MDRD) Non-Af 70, BUN/Creatinine Ratio 23.6 H, Glucose 190 H, Calcium 8.5, Total Bilirubin 0.60, AST 34, ALT 21, Alkaline Phosphatase 60, Total Protein 6.5, Albumin 2.2 L, Globulin 4.3 H, Albumin/Globulin Ratio 0.5 L Current Medications Acetaminophen (Acetaminophen 650 Mg/20 Ml Udc) 650 mg GT Q6H PRN PRN PRN Reason: Pain Score 1-10/Temp > 100.7 F Albuterol Sulfate (Albuterol Ih 8.5 Gm (Proair) Inhaler (200 Puffs)) 2 puff INHALATION Q4H PRN PRN PRN Reason: SOB &/OR WHEEZING Carbidopa/Levodopa (Carbidopa/Levodopa 25/250 Tablet) 1 tablet GT 0400,1000,1600,2200 [facility] Last Admin: 05/19/20 08:31 Dose: 1 tablet Documented by: Chlorhexidine Gluconate (Chlorhexidine 15 Ml) 15 ml PO BID [facility] Last Admin: 05/19/20 08:33 Dose: 15 ml Documented by: Dexamethasone (Dexamethasone 4 Mg Tablet) 6 mg GT DAILY@0800 [facility] Stop: 05/25/20 08:01 Last Admin: 05/19/20 08:31 Dose: 6 mg Documented by: Enoxaparin Sodium (Enoxaparin 30 Mg/0.3 Ml Syringe) 30 mg SC BID [facility] Last Admin: 05/19/20 08:30 Dose: 30 mg Documented by: Famotidine (Famotidine 20 Mg Tablet) 20 mg GT BID [facility] Sodium Chloride () 250 mls @ 15 mls/hr IV .[id number] PRN PRN Reason: Saline Flush Last Infusion: 05/19/20 14:51 Dose: Infused Documented by: Sodium Chloride () 250 mls @ 15 mls/hr IV .[id number] PRN PRN Reason: Additional IVPB Infusion Propofol (Diprivan) 1,000 mg in 100 mls @ 4.836 mls/hr CONT INF .Q12H [facility]; Protocol Last Titration: 05/19/20 15:00 Dose: 10 mcg/kg/min, 4.8 mls/hr Documented by: Fentanyl Citrate 1,000 mcg/ (Sodium Chloride) 100 mls @ 2.5 mls/hr CONT INF .Q40H [facility]; Protocol Last Titration: 05/19/20 15:00 Dose: 100 mcg/hr, 10 mls/hr Documented by: Norepinephrine Bitartrate 8 mg (/ Sodium Chloride) 250 mls @ 9.375 mls/hr CONT INF .[id number] [facility]; Protocol Last Titration: 05/19/20 15:00 Dose: 3 mcg/min, 5.6 mls/hr Documented by: Piperacillin Sod/Tazobactam (Sod 3.375 gm/ Sodium Chloride) 50 mls @ 12.5 mls/hr IV Q8@0200,1000,1800 [facility] Last Infusion: 05/19/20 14:50 Dose: Infused Documented by: Enteral Nutritional Formula (Vital Af 1.2 Rg Liquid) 1,000 mls @ 90 mls/hr GT .[id number] [facility] Last Admin: 05/19/20 11:50 Dose: 60 mls/hr Documented by: Lorazepam (Lorazepam 2 Mg/Ml Syringe) 2 mg IM Q6H PRN PRN PRN Reason: AGITATION Last Admin: 05/17/20 19:55 Dose: 2 mg Documented by: Melatonin (Melatonin 3 Mg Tablet) 3 mg GT QHS PRN PRN PRN Reason: INSOMNIA Ondansetron HCl (Ondansetron 4 Mg/2 Ml Vial) 4 mg IV Q8H PRN PRN PRN Reason: NAUSEA/VOMITING Pramipexole Dihydrochloride (Pramipexole Di-Hcl 1 Mg Tablet) 1.5 mg GT TIDCM [facility] Last Admin: 05/19/20 11:49 Dose: 1.5 mg Documented by: Rasagiline (Rasagiline Mesylate 1 Mg Tablet) 1 mg GT DAILY [facility] Last Admin: 05/19/20 08:31 Dose: 1 mg Documented by: Senna/Docusate Sodium (Senna/Docusate Sodium 1 Tablet) 2 tablet GT BID [facility] Sodium Chloride (0.9% Saline Lock 10 Ml Syringe) 10 - 40 ml IV UD PRN PRN Reason: SALINE FLUSH Last Admin: 05/19/20 04:22 Dose: 40 ml Documented by: Medical Necessity - Tobacco Use Smoking Status: Never smoker Route of nutrition/ use of supplements: [] Nutritional Intake: [] IV Site: [] Allen Catheter: [] - Assessment/Plan Antibiotics: [] Assessment/Plan: [] Active and Suspected Problems (Last Updated 05/16/20 @ 05:[address] Timothy barrow MD) COVID-19 virus detected (Acute) Pneumonia due to 2019 novel coronavirus (Acute) covid with hypoxia - 2 weeks into her course, so likely not benefit from plasma or remdesivir. Cont dex. PCT was 0.2, relatively asymptomatic. On lovenox [address] showed no PE, mild elevated d-dimer. UAg neg. Remains on vent. Now with pneumothorax. GNR and strep bacteremia - cont zosyn, unclear source, denies abd pain or dysuria. Also GPC seen on anaerobic gram stain. Will follow
[2020-05-19] MEDS: Senna/Docusate Sodium 1 Tablet 2 TABLET GT (20:53)
[2020-05-19] MEDS: Vital AF 1.2 Cal Liquid 1,000 ML 90 ML GT (22:58)
[2020-05-20] VITALS (63 sets, daily range): BP systolic 64–190; BP diastolic 45–107; PULSE 56–96; RESP 14–31; TEMP 36.1–36.9; O2SAT 19–98
[2020-05-20] MEDS: Carbidopa/Levodopa 25/250 Tablet GT ×4 (03:14→22:15)
[2020-05-20 03:28] LABS: Absolute Lymphocyte Count 0.67 X10^3/uL (0.83-4.51); Absolute Neutrophil Count 7.1 X10^3/uL (2.0-7.7); Basophil# 0.05 X10^3/uL; Basophil% 0.6 % (0-1); Hematocrit 39.3 % (37-47); Lymphocyte # 0.67 X10^3/ul (4.0); Lymphocyte % 8.1 % (19-41); Mean Corp Hgb Conc 33.1 g/dL (32-36); Mean Corpuscular Hgb 30.4 pg (27.0-32.0); Mean Platelet Vol. 10.4 fl (6.2-12.0); Monocyte# 0.18 X10^3/uL; Monocyte% 2.2 % (0-10); NRBC Flagged by Analyzer 0.2 % (0-5); Neutrophil # 7.13 X10^3/uL (2.7-7.7); Neutrophil % 86.4 % (47-70); POSITIVE MORPHOLOGY YES; Platelet Count 301 K/mm3 (150-450); RBC Distribution Width CV 13.2 % (11.6-14.6); RBC Distribution Width SD 44.9 fl (35.1-43.9); Red Blood Count 4.27 M/mm3 (4.2-5.4); White Blood Count 8.3 K/mm3 (4.4-11.0)
[2020-05-20 03:30] LABS: Differential Indicated SCAN CRITERIA MET
[2020-05-20 03:50] LABS: Differential Comment SCANNED
[2020-05-20 03:56] LABS: Atypical Lymphocyte 1+ %
[2020-05-20 03:57] LABS: Platelet Estimate ADEQUATE (ADEQ)
[2020-05-20 04:18] LABS: ALB/GLOB Ratio 0.5 RATIO (0.9-2.4); AST(SGOT) 22 U/L (15-37); Alanine Aminotransfer ALT/SGPT 13 U/L (13-56); Albumin, Serum 1.9 g/dL (3.2-5.0); Alkaline Phosphatase 57 U/L (45-117); Anion Gap 7 (5-15); BUN 22 mg/dL (7-18); BUN/Creat Ratio 33.4 RATIO (10-20); Calcium,Total 8.3 mg/dL (8.5-10.1); Chloride 104 mmol/L (98-107); Creatinine, Serum 0.66 mg/dL (0.55-1.02); EST Glomerular Filtration Rate 93 mL/min (>60); Est Glom Filt Rate - Afr Amer 113 mL/min (>60); Estimated Creatinine Clearance 41.45 ml/min; Globulin 4.2 g/dL (2.2-4.2); Glucose 195 mg/dL (74-106); Potassium 3.8 mmol/L (3.5-5.1); Protein, Total 6.1 g/dL (6.4-8.2); Sodium Level 140 mmol/L (136-145)
[2020-05-20] MEDS: TITRATION PARAMETER CHANGE 1 EACH IV (04:22)
[2020-05-20] MEDS: Vital AF 1.2 Cal Liquid 1,000 ML 90 ML GT (04:24)
[2020-05-20] MEDS: Propofol 10MG/Ml 1,000 MG/100 ML Bottle 7.3 MG CONT INF ×2 (05:26→11:00)
--- NOTE | 2020-05-20 07:40 | PN_ITS ---
Patient Problems: Active and Suspected Problems (Last Updated 05/16/20 @ 05:[address] Timothy Crews MD) COVID-19 virus detected (Acute) Pneumonia due to 2019 novel coronavirus (Acute) Reason for Visit: Follow-up on acute COVID 19 pneumonia/respiratory failure Subjective: Patient was seen and examined. She remains intubated, on mechanical ventilator, chest tube in situ. Oxygen requirements are starting to be slightly improved. No other acute events overnight. Blood pressure has been fluctuating. Off Levophed this morning. Objective: Physical exam: General: Sedated, intubated, on mechanical ventilator HEENT: Atraumatic, PERRLA, EOMI, Normocephalic Oral: Moist Mucosa Neck: Supple Lungs: Diminished, right-sided chest tube Cardiovascular: Regular rate, Regular Rhythm, Normal S1, Normal S2, No murmurs Abdomen: Bowel Sounds Present, Soft, Non Tender, Non-Distended, No Hepato- splenomegaly Extremities: No edema Skin: No rashes Musculoskeletal: No Tenderness to Palpation of Joints or Extremities Lymphatic: No Cervical, Supraclavicular, or Inguinal Adenopathy Neurological: Cranial nerves II-XII grossly intact Psych/Mental Status: Normal Affect, Appropriate Vitals/I&O's: Vital Signs Temp Pulse Resp BP Pulse Ox 97.1 F L 82 14 147/79 H 94 05/20/20 06:00 05/20/20 07:00 05/20/20 07:00 05/20/20 07:00 05/20/20 07:00 Oxygen Flow Rate (L/min) 15 Oxygen Delivery Method Mechanical Ventilator Weight: 80.9 kg Body Mass Index (BMI) 31.4 Intake and Output for Last 24 Hours 05/18/20 05/19/20 05/20/20 23:59 23:59 23:59 Intake Total 1074.96 / 1089.96 2468.76 / 2478.09 687.81 / 687.81 Output Total 1350 / 1475 1090 / 1090 305 / 305 Balance -275.04 / -385.04 1378.76 / 1388.09 382.81 / 382.81 Microbiology Past 72 Hours 05/16/20 04:00 Blood Culture (Wb) - Anticubital Left Blood Culture - Preliminary Gram negative sylvia Alpha Hemolytic Streptococcus Gram Positive Cocci 05/16/20 00:12 Urine Catheter - Catheter Urine Culture - Final Culture exhibits no growth. 05/15/20 23:56 Blood Culture (Wb) - Right Forearm Blood Culture - Preliminary No growth in 48 hours. Laboratory Results 05/19/20 04:20: Lymphocytes % (Manual) 5 L, Blast Cells % Not Reportable 05/20/20 03:20: WBC 8.3, RBC 4.27, Hgb 13.0, Hct 39.3, MCV 92.0, MCH 30.4, MCHC 33.1, RDW Std Deviation 44.9 H, RDW Coeff of [place] 13.2, Plt Count 301, MPV 10.4, Immature Gran % (Auto) 2.700 H, Neut % (Auto) 86.4 H, Lymph % (Auto) 8.1 L, [place] % (Auto) 2.2, Eos % (Auto) 0.0, Baso % (Auto) 0.6, Absolute Neuts (auto) 7.1, Absolute Lymphs (auto) 0.67 L, Nucleated RBC % 0.2, Differential Comment SCANNED, Atypical Lymphocytes 1+, Platelet Estimate ADEQUATE 05/20/20 03:20: Sodium 140, Potassium 3.8, Chloride 104, Carbon Dioxide 29.0, Anion Gap 7, BUN 22 H, Creatinine 0.66, Estim Creat Clear Calc 41.45, Est GFR (MDRD) Af Amer 113, Est GFR (MDRD) Non-Af 93, BUN/Creatinine Ratio 33.4 H, Glucose 195 H, Calcium 8.3 L, Total Bilirubin 0.40, AST 22, ALT 13, Alkaline Phosphatase 57, Total Protein 6.1 L, Albumin 1.9 L, Globulin 4.2, Albumin/Globulin Ratio 0.5 L Current Medications Acetaminophen (Acetaminophen 650 Mg/20 Ml Udc) 650 mg GT Q6H PRN PRN PRN Reason: Pain Score 1-10/Temp > 100.7 F Albuterol Sulfate (Albuterol Ih 8.5 Gm (Proair) Inhaler (200 Puffs)) 2 puff INHALATION Q4H PRN PRN PRN Reason: SOB &/OR WHEEZING Carbidopa/Levodopa (Carbidopa/Levodopa 25/250 Tablet) 1 tablet GT 0400,1000,1600,2200 [facility] Last Admin: 05/20/20 03:14 Dose: 1 tablet Documented by: Chlorhexidine Gluconate (Chlorhexidine 15 Ml) 15 ml PO BID [facility] Last Admin: 05/19/20 20:53 Dose: 15 ml Documented by: Dexamethasone (Dexamethasone 4 Mg Tablet) 6 mg GT DAILY@0800 [facility] Stop: 05/25/20 08:01 Last Admin: 05/19/20 08:31 Dose: 6 mg Documented by: Enoxaparin Sodium (Enoxaparin 30 Mg/0.3 Ml Syringe) 30 mg SC BID [facility] Last Admin: 05/19/20 20:52 Dose: 30 mg Documented by: Famotidine (Famotidine 20 Mg Tablet) 20 mg GT BID [facility] Last Admin: 05/19/20 20:53 Dose: 20 mg Documented by: Sodium Chloride () 250 mls @ 15 mls/hr IV .[id number] PRN PRN Reason: Saline Flush Last Infusion: 05/19/20 14:51 Dose: Infused Documented by: Sodium Chloride () 250 mls @ 15 mls/hr IV .[id number] PRN PRN Reason: Additional IVPB Infusion Propofol (Diprivan) 1,000 mg in 100 mls @ 4.854 mls/hr CONT INF .Q12H [facility]; Protocol Last Titration: 05/20/20 07:00 Dose: 15 mcg/kg/min, 7.3 mls/hr Documented by: Fentanyl Citrate 1,000 mcg/ (Sodium Chloride) 100 mls @ 2.5 mls/hr CONT INF .Q40H [facility]; Protocol Last Titration: 05/20/20 07:00 Dose: 150 mcg/hr, 15 mls/hr Documented by: Norepinephrine Bitartrate 8 mg (/ Sodium Chloride) 250 mls @ 9.375 mls/hr CONT INF .[id number] [facility]; Protocol Last Titration: 05/20/20 07:00 Dose: 1 mcg/min, 1.9 mls/hr Documented by: Piperacillin Sod/Tazobactam (Sod 3.375 gm/ Sodium Chloride) 50 mls @ 12.5 mls/hr IV Q8@0200,1000,1800 [facility] Last Infusion: 05/20/20 05:00 Dose: Infused Documented by: Enteral Nutritional Formula (Vital Af 1.2 Rg Liquid) 1,000 mls @ 90 mls/hr GT .[id number] [facility] Last Admin: 10/31/20 04:24 Dose: 90 mls/hr Documented by: Lorazepam (Lorazepam 2 Mg/Ml Syringe) 2 mg IM Q6H PRN PRN PRN Reason: AGITATION Last Admin: 05/17/20 19:55 Dose: 2 mg Documented by: Melatonin (Melatonin 3 Mg Tablet) 3 mg GT QHS PRN PRN PRN Reason: INSOMNIA Ondansetron HCl (Ondansetron 4 Mg/2 Ml Vial) 4 mg IV Q8H PRN PRN PRN Reason: NAUSEA/VOMITING Pramipexole Dihydrochloride (Pramipexole Di-Hcl 1 Mg Tablet) 1.5 mg GT TIDCM [facility] Last Admin: 05/19/20 16:25 Dose: 1.5 mg Documented by: Rasagiline (Rasagiline Mesylate 1 Mg Tablet) 1 mg GT DAILY [facility] Last Admin: 05/19/20 08:31 Dose: 1 mg Documented by: Senna/Docusate Sodium (Senna/Docusate Sodium 1 Tablet) 2 tablet GT BID [facility] Last Admin: 05/19/20 20:53 Dose: 2 tablet Documented by: Sodium Chloride (0.9% Saline Lock 10 Ml Syringe) 10 - 40 ml IV UD PRN PRN Reason: SALINE FLUSH Last Admin: 05/19/20 23:10 Dose: 20 ml Documented by: STROKE Vital Signs/Narrative: Vital Signs Temp Pulse Resp BP Pulse Ox 05/20/20 07:00 82 14 147/79 H 94 05/20/20 06:00 97.1 F L 82 14 105/64 87 05/20/20 05:00 79 14 114/74 96 05/20/20 04:35 88 05/20/20 04:00 96.9 F L 70 14 92/56 L 90 Medical Necessity - Tobacco Use Smoking Status: Never smoker Assessment/Plan All Active Problems (Last Updated 05/16/20 @ 05:[address] Timothy Crews MD) COVID-19 virus detected (Acute) Pneumonia due to 2019 novel coronavirus (Acute) 1. Acute hypoxic respiratory failure secondary to Acute COVID-19 infection/new right pneumothorax Intubated, on mechanical ventilator, pulmonology following 2. Acute pneumothorax, unclear etiology, probably spontaneous pneumothorax status post chest tube placement General surgery following, will continue to monitor 3. Acute metabolic encephalopathy/delirium secondary to COVID-19 infection/pneumonia/hypoxia and bacteremia, Patient is currently intubated 4. Acute COVID-19 infection/pneumonia, severe with hypoxia CTA was negative for acute PE, showed multifocal infiltrates On IV dexamethasone and redemsivir. Not a candidate for plasma. 5. Septic shock/Gram neg/gram-positive bacteremia, unclear etiology Repeat blood cultures have been negative, continue on IV Zosyn No fevers overnight. Off Levophed now Will continue to follow blood cultures and differentiation ID following 6. Parkinson's disease with probably dementia, Continue on Parkinson's disease meds 7. DVT PPx- Lovenox BID Patient's was updated on phone about patient's status. All questions answered. Inpatient E&M: [id number] [facility]
[2020-05-20] MEDS: Polyethylene Glycol 3350 17 GM PACKET PO (08:58)
[2020-05-20] MEDS: Enoxaparin 30 MG/0.3 ML Syringe SC ×2 (08:58→22:15)
[2020-05-20] MEDS: dexAMETHasone 4 MG Tablet 6 MG GT (08:58)
[2020-05-20] MEDS: Pramipexole Di-HCl 1 MG Tablet 1.5 MG GT ×3 (08:59→16:46)
[2020-05-20] MEDS: Famotidine 20 MG Tablet GT ×2 (08:59→22:15)
[2020-05-20] MEDS: Senna/Docusate Sodium 1 Tablet 2 TABLET GT ×2 (08:59→22:15)
--- NOTE | 2020-05-20 09:14 | PCM.PN.INT ---
Subjective: Patient did relatively okay overnight. Blood pressures remain marginal requiring Levophed for support. Oxygenation has slightly improved. Chest tube appears to be functioning well. Fair vent synchrony noted, but patient not following commands at this time. General: - - Intubated and sedated. Fair vent synchrony. Drew appearance. HEENT: Atraumatic, PERRLA, EOMI, Normocephalic, - - Slight scleral injection without icterus Oral: Moist Mucosa, No Gingival or Mucosal Lesions/ Ulcerations Neck: Supple, No JVD, No Nodes, Trachea Midline, - - IJ is clean, dry and intact Lungs: No rhonchi, No wheeze, No rales, Diminished, - - Symmetric expansion. Chest tube with mild bubbling noted. Very little output Cardiovascular: Regular rate, Regular Rhythm, Normal S1, Normal S2, No murmurs, No rub noted, No Gallop Abdomen: Bowel Sounds Present, Soft, Non Tender, Non-Distended Extremities: No clubbing, No cyanosis, Edema Skin: - - No significant change compared to previous. Musculoskeletal: No Tenderness to Palpation of Joints or Extremities Lymphatic: No Cervical, Supraclavicular, or Inguinal Adenopathy Neurological: Cranial nerves II-XII grossly intact, Neuro grossly intact Psych/Mental Status: Flat Affect Vital Signs Temp Pulse Resp BP Pulse Ox 36.2 C L 80 19 H 147/79 H 92 05/20/20 06:00 05/20/20 07:43 05/20/20 07:43 05/20/20 07:00 05/20/20 07:43 Oxygen Flow Rate (L/min) 15 Oxygen Delivery Method Mechanical Ventilator Weight: 80.9 kg Body Mass Index (BMI) 31.4 Intake and Output for Last 24 Hours 05/18/20 05/19/20 05/20/20 23:59 23:59 23:59 Intake Total 1074.96 / 1089.96 2468.76 / 2478.09 687.81 / 687.81 Output Total 1350 / 1475 1090 / 1090 305 / 305 Balance -275.04 / -385.04 1378.76 / 1388.09 382.81 / 382.81 Labs (Last 48 Hours) 05/18/20 05/19/20 05/19/20 18:30 04:20 04:20 WBC 10.1 RBC 4.43 Hgb 13.3 Hct 40.2 MCV 90.7 MCH 30.0 MCHC 33.1 RDW Std Deviation 44.2 H RDW Coeff of [place] 13.2 Plt Count 314 MPV 10.2 Immature Gran % (Auto) [employer] Neut % (Auto) [employer] OFFICER Lymph % (Auto) [employer] OFFICER [place] % (Auto) [employer] OFFICER Eos % (Auto) [employer] OFFICER Baso % (Auto) [employer] OFFIC[employer] Absolute Neuts (auto) 9.7 H Absolute Lymphs (auto) 0.30 L Total Counted 100 Neutrophils % (Manual) 95 H Lymphocytes % (Manual) 5 L Blast Cells % Not Reportable Nucleated RBC % 0 Differential Comment Diff Path Review May foll Atypical Lymphocytes Platelet Estimate SLT RBC Morphology NORM C+C Sodium 140 Potassium 3.8 Chloride 103 Carbon Dioxide 28.0 Anion Gap 9 BUN 20 H Creatinine 0.85 Estim Creat Clear Calc 48.76 Est GFR (MDRD) Af Amer 85 Est GFR (MDRD) Non-Af 70 BUN/Creatinine Ratio 23.6 H Glucose 190 H Calcium 8.5 Total Bilirubin 0.60 AST 34 ALT 21 Alkaline Phosphatase 60 Total Protein 6.5 Albumin 2.2 L Globulin 4.3 H Albumin/Globulin Ratio 0.5 L Procalcitonin 0.52 H 05/20/20 05/20/20 03:20 03:20 WBC 8.3 RBC 4.27 Hgb 13.0 Hct 39.3 MCV 92.0 MCH 30.4 MCHC 33.1 RDW Std Deviation 44.9 H RDW Coeff of [place] 13.2 Plt Count 301 MPV 10.4 Immature Gran % (Auto) 2.700 H Neut % (Auto) 86.4 H Lymph % (Auto) 8.1 L [place] % (Auto) 2.2 Eos % (Auto) 0.0 Baso % (Auto) 0.6 Absolute Neuts (auto) 7.1 Absolute Lymphs (auto) 0.67 L Total Counted Neutrophils % (Manual) Lymphocytes % (Manual) Blast Cells % Nucleated RBC % 0.2 Differential Comment SCANNED Diff Path Review Atypical Lymphocytes 1+ Platelet Estimate ADEQUATE RBC Morphology Sodium 140 Potassium 3.8 Chloride 104 Carbon Dioxide 29.0 Anion Gap 7 BUN 22 H Creatinine 0.66 Estim Creat Clear Calc 41.45 Est GFR (MDRD) Af Amer 113 Est GFR (MDRD) Non-Af 93 BUN/Creatinine Ratio 33.4 H Glucose 195 H Calcium 8.3 L Total Bilirubin 0.40 AST 22 ALT 13 Alkaline Phosphatase 57 Total Protein 6.1 L Albumin 1.9 L Globulin 4.2 Albumin/Globulin Ratio 0.5 L Procalcitonin Microbiology 05/16/20 04:00 Blood Culture (Wb) - Anticubital Left Blood Culture - Preliminary Gram negative sylvia Streptococcus mitis/ oralis Gram Positive Cocci 05/16/20 00:12 Urine Catheter - Catheter Urine Culture - Final Culture exhibits no growth. 05/15/20 23:56 Blood Culture (Wb) - Right Forearm Blood Culture - Preliminary No growth in 48 hours. Clinical Impression(s) from Imaging Studies Chest X-Ray 05/19/20 08:20 IMPRESSION: There is a new 2225% right-sided pneumothorax with persistent bilateral infiltrations worse in the right lung. Electronically Signed: Ar Washington, at 12:19 EDT , Service support , Chest X-Ray 05/19/20 10:40 IMPRESSION: Stable bilateral pulmonary infiltrates. A small caliber right-sided chest tube has been placed. No significant stenosis seen. The support tubes are all in good position. Electronically Signed: Ar Washington, at 10:54 EDT , Service support , Medical Necessity - Tobacco Use Smoking Status: Never smoker Assessment/Plan All Active Problems (Last Updated 05/16/20 @ 05:[address] Timothy Crews MD) COVID-19 virus detected (Acute) Pneumonia due to 2019 novel coronavirus (Acute) RECOMMENDATIONS: 1. Continue mechanical ventilation. Wean supplemental oxygen to maintain saturations at or above 90%. 2. Continue Decadron 6 mg daily x10 days. 3. Defer antimicrobial management to infectious diseases. 4. Continue Parkinson's meds to help with vent liberation 5. Monitor daily weights, possible diuretic challenge 6. Anticipate keeping chest tube until patient liberated from the ventilator to avoid tension physiology IMPRESSIONS: 1. Acute hypoxemic respiratory failure secondary to COVID-19 pneumonia Patient with acute decompensation overnight. Infiltrates appear to be progressive on chest x-ray. It is unclear if patient has a superinfection as she is now growing gram-negative rods in her blood. No species or sensitivities have been reported for the majority of findings in her blood culture. These have been repeated. BNP was not significantly elevated to suggest CHF as an etiology. Continue to wean PEEP and FiO2 as tolerated. Spontaneous breathing and awakening trials per protocol. Patient with protracted presentation, so was not initiated on plasma or remdesivir. Patient may require transition to Precedex to facilitate liberation from the ventilator, but trying to stabilize respiratory status prior to transition. Patient with multiple possible etiologies leading to ARDS. 2. Gram-negative sepsis Blood cultures have come back positive for gram-negative sepsis. Exact source is unclear at this time. Infectious disease is following. Patient initial pro calcitonin was relatively low. Wean Levophed as tolerated to maintain a map above 65. This may have added to patient's acute hypoxemic respiratory failure. Unlikely the patient would require stress dose steroids given Decadron being used for COVID-19 pneumonia. Attempt volume neutrality given concomitant respiratory failure with COVID-19 pneumonia 3. Advanced age/Parkinson's disease Complicates care, management, recovery and prognosis. Continue home medications as indicated. Continue Parkinson's meds to help with liberation from the ventilator. Some concern for an element of dementia adding to risk for delirium. Continue with appropriate protocol 4. New right-sided pneumothorax Clinical suspicion for complications secondary to #1. Patient is not demonstrating tension physiology at this time. Chest tube has been placed and appears to be functioning appropriately. Patient is not having significant output. TIME: 38 minutes critical care time spent addressing patient's acute hypoxic respiratory failure, gram-negative sepsis, review of all data and collaboration with care team (8:15 AM to 9:15 AM) 9xxxx: [id number] Critical care first hour
[2020-05-20] MEDS: Chlorhexidine 15 ML PO ×2 (09:30→22:16)
--- NOTE | 2020-05-20 10:19 | PCM.PN.SRG ---
Patient Problems: Active and Suspected Problems (Last Updated 05/16/20 @ 05:[address] Timothy Crews MD) COVID-19 virus detected (Acute) Pneumonia due to 2019 novel coronavirus (Acute) Subjective: able to decrease FiO2 after CT placement--holding oxygenation. - Physical Exam Vitals/I&O's: Vital Signs Temp Pulse Resp BP Pulse Ox 97.1 F L 80 19 H 147/79 H 92 05/20/20 06:00 05/20/20 07:43 05/20/20 07:43 05/20/20 07:00 05/20/20 07:43 Oxygen Flow Rate (L/min) 15 Oxygen Delivery Method Mechanical Ventilator Weight: 178 lb 5.663 oz Body Mass Index (BMI) 31.4 Intake and Output for Last 24 Hours 05/18/20 05/19/20 05/20/20 23:59 23:59 23:59 Intake Total 1074.96 / 1089.96 2468.76 / 2478.09 702.41 / 702.41 Output Total 1350 / 1475 1090 / 1090 305 / 305 Balance -275.04 / -385.04 1378.76 / 1388.09 397.41 / 397.41 General: - - Intubated/sedated does not follow commands Lungs: - - Right chest tube in place, occasional airleak and canister to -20 Abdomen: Soft, Non-Distended Microbiology Past 72 Hours 05/16/20 04:00 Blood Culture (Wb) - Anticubital Left Blood Culture - Preliminary Gram negative sylvia Streptococcus mitis/ oralis Gram Positive Cocci 05/16/20 00:12 Urine Catheter - Catheter Urine Culture - Final Culture exhibits no growth. 05/15/20 23:56 Blood Culture (Wb) - Right Forearm Blood Culture - Preliminary No growth in 48 hours. Laboratory Results 05/20/20 03:20: WBC 8.3, RBC 4.27, Hgb 13.0, Hct 39.3, MCV 92.0, MCH 30.4, MCHC 33.1, RDW Std Deviation 44.9 H, RDW Coeff of [place] 13.2, Plt Count 301, MPV 10.4, Immature Gran % (Auto) 2.700 H, Neut % (Auto) 86.4 H, Lymph % (Auto) 8.1 L, [place] % (Auto) 2.2, Eos % (Auto) 0.0, Baso % (Auto) 0.6, Absolute Neuts (auto) 7.1, Absolute Lymphs (auto) 0.67 L, Nucleated RBC % 0.2, Differential Comment SCANNED, Atypical Lymphocytes 1+, Platelet Estimate ADEQUATE 05/20/20 03:20: Sodium 140, Potassium 3.8, Chloride 104, Carbon Dioxide 29.0, Anion Gap 7, BUN 22 H, Creatinine 0.66, Estim Creat Clear Calc 41.45, Est GFR (MDRD) Af Amer 113, Est GFR (MDRD) Non-Af 93, BUN/Creatinine Ratio 33.4 H, Glucose 195 H, Calcium 8.3 L, Total Bilirubin 0.40, AST 22, ALT 13, Alkaline Phosphatase 57, Total Protein 6.1 L, Albumin 1.9 L, Globulin 4.2, Albumin/Globulin Ratio 0.5 L Current Medications Acetaminophen (Acetaminophen 650 Mg/20 Ml Udc) 650 mg GT Q6H PRN PRN PRN Reason: Pain Score 1-10/Temp > 100.7 F Albuterol Sulfate (Albuterol Ih 8.5 Gm (Proair) Inhaler (200 Puffs)) 2 puff INHALATION Q4H PRN PRN PRN Reason: SOB &/OR WHEEZING Carbidopa/Levodopa (Carbidopa/Levodopa 25/250 Tablet) 1 tablet GT 0400,1000,1600,2200 [facility] Last Admin: 05/20/20 08:59 Dose: 1 tablet Documented by: Chlorhexidine Gluconate (Chlorhexidine 15 Ml) 15 ml PO BID [facility] Last Admin: 05/20/20 09:30 Dose: 15 ml Documented by: Dexamethasone (Dexamethasone 4 Mg Tablet) 6 mg GT DAILY@0800 [facility] Stop: 05/25/20 08:01 Last Admin: 05/20/20 08:58 Dose: 6 mg Documented by: Enoxaparin Sodium (Enoxaparin 30 Mg/0.3 Ml Syringe) 30 mg SC BID [facility] Last Admin: 05/20/20 08:58 Dose: 30 mg Documented by: Famotidine (Famotidine 20 Mg Tablet) 20 mg GT BID [facility] Last Admin: 05/20/20 08:59 Dose: 20 mg Documented by: Sodium Chloride () 250 mls @ 15 mls/hr IV .[id number] PRN PRN Reason: Saline Flush Last Infusion: 05/19/20 14:51 Dose: Infused Documented by: Sodium Chloride () 250 mls @ 15 mls/hr IV .[id number] PRN PRN Reason: Additional IVPB Infusion Propofol (Diprivan) 1,000 mg in 100 mls @ 4.854 mls/hr CONT INF .Q12H [facility]; Protocol Last Titration: 05/20/20 09:00 Dose: 15 mcg/kg/min, 7.3 mls/hr Documented by: Fentanyl Citrate 1,000 mcg/ (Sodium Chloride) 100 mls @ 2.5 mls/hr CONT INF .Q40H [facility]; Protocol Last Titration: 05/20/20 07:00 Dose: 150 mcg/hr, 15 mls/hr Documented by: Norepinephrine Bitartrate 8 mg (/ Sodium Chloride) 250 mls @ 9.375 mls/hr CONT INF .[id number] [facility]; Protocol Last Titration: 05/20/20 07:00 Dose: 1 mcg/min, 1.9 mls/hr Documented by: Piperacillin Sod/Tazobactam (Sod 3.375 gm/ Sodium Chloride) 50 mls @ 12.5 mls/hr IV Q8@0200,1000,1800 [facility] Last Admin: 05/20/20 09:31 Dose: 12.5 mls/hr Documented by: Enteral Nutritional Formula (Vital Af 1.2 Rg Liquid) 1,000 mls @ 90 mls/hr GT .[id number] [facility] Last Admin: 05/20/20 04:24 Dose: 90 mls/hr Documented by: Lorazepam (Lorazepam 2 Mg/Ml Syringe) 2 mg IM Q6H PRN PRN PRN Reason: AGITATION Last Admin: 05/17/20 19:55 Dose: 2 mg Documented by: Melatonin (Melatonin 3 Mg Tablet) 3 mg GT QHS PRN PRN PRN Reason: INSOMNIA Ondansetron HCl (Ondansetron 4 Mg/2 Ml Vial) 4 mg IV Q8H PRN PRN PRN Reason: NAUSEA/VOMITING Pramipexole Dihydrochloride (Pramipexole Di-Hcl 1 Mg Tablet) 1.5 mg GT TIDCM [facility] Last Admin: 05/20/20 08:59 Dose: 1.5 mg Documented by: Rasagiline (Rasagiline Mesylate 1 Mg Tablet) 1 mg GT DAILY [facility] Last Admin: 05/20/20 08:59 Dose: 1 mg Documented by: Senna/Docusate Sodium (Senna/Docusate Sodium 1 Tablet) 2 tablet GT BID [facility] Last Admin: 05/20/20 08:59 Dose: 2 tablet Documented by: Sodium Chloride (0.9% Saline Lock 10 Ml Syringe) 10 - 40 ml IV UD PRN PRN Reason: SALINE FLUSH Last Admin: 05/19/20 23:10 Dose: 20 ml Documented by: Medical Necessity - Tobacco Use Smoking Status: Never smoker Assessment/Plan All Active Problems (Last Updated 05/16/20 @ 05:[address] Timothy Crews MD) COVID-19 virus detected (Acute) Pneumonia due to 2019 novel coronavirus (Acute) 74-year-old female on mechanical ventilator due to Covid, right pneumothorax s/p right 14 Fr chest tube Occasional air leak seen, continue -20 suction while on vent. will hold off on CXR unless needed due to change in oxygenation Marina Tom M.D. Pager: [phone] [facility] [address] [place] [address], Outpatient Pavilion, [address] [place] [address] Office: [phone] Inpatient E&M: [id number] [facility] Hosp L1
[2020-05-20] MEDS: 0.9% Normal Saline 1,000 ML 50 ML IV (13:57)
[2020-05-20] MEDS: Propofol 10MG/Ml 1,000 MG/100 ML Bottle 9.7 MG CONT INF (23:15)
[2020-05-21] VITALS (47 sets, daily range): BP systolic 78–172; BP diastolic 51–90; PULSE 50–84; RESP 13–27; TEMP 36.2–36.6; O2SAT 86–97
[2020-05-21] MEDS: Propofol 10MG/Ml 1,000 MG/100 ML Bottle 9.7 MG CONT INF (02:47)
[2020-05-21] MEDS: Vital AF 1.2 Cal Liquid 1,000 ML 90 ML GT ×2 (03:56→10:55)
[2020-05-21] MEDS: TITRATION PARAMETER CHANGE 1 EACH IV (03:56)
[2020-05-21] MEDS: 0.9% Saline Lock 10 ML Syringe IV ×2 (04:05→10:56)
[2020-05-21 04:32] LABS: Absolute Lymphocyte Count 1.03 X10^3/uL (0.83-4.51); Absolute Neutrophil Count 5.6 X10^3/uL (2.0-7.7); Basophil# 0.02 X10^3/uL; Basophil% 0.3 % (0-1); Eosinophil# 0.03 X10^3/uL; Eosinophils% 0.4 % (0-5); Hematocrit 38.1 % (37-47); Hemoglobin 12.3 g/dL (12.0-15.0); Lymphocyte # 1.03 X10^3/ul (4.0); Lymphocyte % 14.1 % (19-41); Mean Corp Hgb Conc 32.3 g/dL (32-36); Mean Corpuscular Hgb 29.9 pg (27.0-32.0); Mean Corpuscular Volume 92.5 fL (81-99); Mean Platelet Vol. 10.2 fl (6.2-12.0); Monocyte% 4.1 % (0-10); NRBC Flagged by Analyzer 0 % (0-5); Neutrophil # 5.59 X10^3/uL (2.7-7.7); Neutrophil % 76.3 % (47-70); POSITIVE MORPHOLOGY YES; Platelet Count 223 K/mm3 (150-450); RBC Distribution Width CV 13.2 % (11.6-14.6); RBC Distribution Width SD 44.7 fl (35.1-43.9); Red Blood Count 4.12 M/mm3 (4.2-5.4); White Blood Count 7.3 K/mm3 (4.4-11.0)
[2020-05-21 04:51] LABS: ALB/GLOB Ratio 0.5 RATIO (0.9-2.4); AST(SGOT) 25 U/L (15-37); Alanine Aminotransfer ALT/SGPT 13 U/L (13-56); Albumin, Serum 1.9 g/dL (3.2-5.0); Alkaline Phosphatase 51 U/L (45-117); Anion Gap 5 (5-15); BUN 24 mg/dL (7-18); BUN/Creat Ratio 41.5 RATIO (10-20); Calcium,Total 8.4 mg/dL (8.5-10.1); Chloride 102 mmol/L (98-107); Creatinine, Serum 0.58 mg/dL (0.55-1.02); EST Glomerular Filtration Rate 108 mL/min (>60); Est Glom Filt Rate - Afr Amer 131 mL/min (>60); Estimated Creatinine Clearance 41.45 ml/min; Globulin 3.9 g/dL (2.2-4.2); Glucose 122 mg/dL (74-106); Potassium 4.1 mmol/L (3.5-5.1); Protein, Total 5.8 g/dL (6.4-8.2); Sodium Level 140 mmol/L (136-145)
[2020-05-21] MEDS: Carbidopa/Levodopa 25/250 Tablet GT ×4 (04:51→22:42)
[2020-05-21 05:34] LABS: Differential Indicated SCAN CRITERIA MET
[2020-05-21 05:35] LABS: Atypical Lymphocyte 1+ %
--- NOTE | 2020-05-21 07:03 | PN_ITS ---
Patient Problems: Active and Suspected Problems (Last Updated 05/16/20 @ 05:[address] Timothy Crews MD) COVID-19 virus detected (Acute) Pneumonia due to 2019 novel coronavirus (Acute) Reason for Visit: Follow-up on acute COVID 19 pneumonia/respiratory failure Subjective: Patient was seen and examined. She remains intubated, on mechanical ventilator, chest tube in situ. Blood pressure has been fluctuating. Restarted back on Levophed briefly yesterday. No other acute events overnight. Blood pressure has been fluctuating. Off Levophed this morning. Objective: Physical exam: General: Sedated, intubated, on mechanical ventilator HEENT: Atraumatic, PERRLA, EOMI, Normocephalic Oral: Moist Mucosa Neck: Supple Lungs: Diminished, right-sided chest tube in situ Cardiovascular: Regular rate, Regular Rhythm, Normal S1, Normal S2, No murmurs Abdomen: Bowel Sounds Present, Soft, Non Tender, Non-Distended, No Hepato-splen omegaly Extremities: No edema Skin: No rashes Musculoskeletal: No Tenderness to Palpation of Joints or Extremities Lymphatic: No Cervical, Supraclavicular, or Inguinal Adenopathy Neurological: Cranial nerves II-XII grossly intact Psych/Mental Status: Normal Affect, Appropriate Vitals/I&O's: Vital Signs Temp Pulse Resp BP Pulse Ox 97.2 F L 50 L 14 103/64 92 05/21/20 04:00 05/21/20 06:00 05/21/20 06:00 05/21/20 06:00 05/21/20 04:08 Oxygen Flow Rate (L/min) 15 Oxygen Delivery Method Mechanical Ventilator Weight: 81.6 kg Body Mass Index (BMI) 31.4 Intake and Output for Last 24 Hours 05/19/20 05/20/20 05/21/20 23:59 23:59 22:59 Intake Total 2468.76 / 2478.09 2068.01 / 2177.19 1557.15 / 1557.15 Output Total 1090 / 1090 936 / 936 205 / 205 Balance 1378.76 / 1388.09 1132.01 / 1241.19 1352.15 / 1352.15 Microbiology Past 72 Hours 05/15/20 23:56 Blood Culture (Wb) - Right Forearm Blood Culture - Final No growth in 5 days. 05/18/20 13:00 Blood Culture (Wb) - No Site/Description Given Blood Culture - Preliminary No growth in 48 hours. 05/16/20 04:00 Blood Culture (Wb) - Anticubital Left Blood Culture - Preliminary Gram negative sylvia Streptococcus mitis/ oralis Gram Positive Cocci 05/16/20 00:12 Urine Catheter - Catheter Urine Culture - Final Culture exhibits no growth. Laboratory Results 05/21/20 04:10: WBC 7.3, RBC 4.12 L, Hgb 12.3, Hct 38.1, MCV 92.5, MCH 29.9, MCHC 32.3, RDW Std Deviation 44.7 H, RDW Coeff of [place] 13.2, Plt Count 223, MPV 10.2, Immature Gran % (Auto) 4.800 H, Neut % (Auto) 76.3 H, Lymph % (Auto) 14.1 L, [place] % (Auto) 4.1, Eos % (Auto) 0.4, Baso % (Auto) 0.3, Absolute Neuts (auto) 5.6, Absolute Lymphs (auto) 1.03, Nucleated RBC % 0, Differential Comment COMMENT, Atypical Lymphocytes 1+ 05/21/20 04:10: Sodium 140, Potassium 4.1, Chloride 102, Carbon Dioxide 33.0 H, Anion Gap 5, BUN 24 H, Creatinine 0.58, Estim Creat Clear Calc 41.45, Est GFR (MDRD) Af Amer 131, Est GFR (MDRD) Non-Af 108, BUN/Creatinine Ratio 41.5 H, Glucose 122 H, Calcium 8.4 L, Total Bilirubin 0.30, AST 25, ALT 13, Alkaline Phosphatase 51, Total Protein 5.8 L, Albumin 1.9 L, Globulin 3.9, Albumin/Globulin Ratio 0.5 L Current Medications Acetaminophen (Acetaminophen 650 Mg/20 Ml Udc) 650 mg GT Q6H PRN PRN PRN Reason: Pain Score 1-10/Temp > 100.7 F Albuterol Sulfate (Albuterol Ih 8.5 Gm (Proair) Inhaler (200 Puffs)) 2 puff INHALATION Q4H PRN PRN PRN Reason: SOB &/OR WHEEZING Carbidopa/Levodopa (Carbidopa/Levodopa 25/250 Tablet) 1 tablet GT 0400,1000,1600,2200 [facility] Last Admin: 05/21/20 04:51 Dose: 1 tablet Documented by: Chlorhexidine Gluconate (Chlorhexidine 15 Ml) 15 ml PO BID [facility] Last Admin: 05/20/20 22:16 Dose: 15 ml Documented by: Dexamethasone (Dexamethasone 4 Mg Tablet) 6 mg GT DAILY@0800 [facility] Stop: 05/25/20 08:01 Last Admin: 05/20/20 08:58 Dose: 6 mg Documented by: Enoxaparin Sodium (Enoxaparin 30 Mg/0.3 Ml Syringe) 30 mg SC BID [facility] Last Admin: 05/20/20 22:15 Dose: 30 mg Documented by: Famotidine (Famotidine 20 Mg Tablet) 20 mg GT BID [facility] Last Admin: 05/20/20 22:15 Dose: 20 mg Documented by: Sodium Chloride () 250 mls @ 15 mls/hr IV .[id number] PRN PRN Reason: Saline Flush Last Infusion: 05/19/20 14:51 Dose: Infused Documented by: Sodium Chloride () 250 mls @ 15 mls/hr IV .[id number] PRN PRN Reason: Additional IVPB Infusion Propofol (Diprivan) 1,000 mg in 100 mls @ 4.896 mls/hr CONT INF .Q12H [facility]; Protocol Last Titration: 05/21/20 06:00 Dose: 20 mcg/kg/min, 9.8 mls/hr Documented by: Fentanyl Citrate 1,000 mcg/ (Sodium Chloride) 100 mls @ 2.5 mls/hr CONT INF .Q40H [facility]; Protocol Last Admin: 05/21/20 05:50 Dose: 175 mcg/hr, 17.5 mls/hr Documented by: Norepinephrine Bitartrate 8 mg (/ Sodium Chloride) 250 mls @ 9.375 mls/hr CONT INF .[id number] [facility]; Protocol Last Titration: 05/21/20 06:00 Dose: 0 mcg/min, 0 mls/hr Documented by: Piperacillin Sod/Tazobactam (Sod 3.375 gm/ Sodium Chloride) 50 mls @ 12.5 mls/hr IV Q8@0200,1000,1800 [facility] Last Infusion: 05/21/20 06:47 Dose: Infused Documented by: Enteral Nutritional Formula (Vital Af 1.2 Rg Liquid) 1,000 mls @ 90 mls/hr GT .[id number] [facility] Last Admin: 05/21/20 03:56 Dose: 90 mls/hr Documented by: Sodium Chloride () 1,000 mls @ 50 mls/hr IV .Q20H [facility] Last Infusion: 05/21/20 06:47 Dose: 50 mls/hr Documented by: Lorazepam (Lorazepam 2 Mg/Ml Syringe) 2 mg IM Q6H PRN PRN PRN Reason: AGITATION Last Admin: 05/17/20 19:55 Dose: 2 mg Documented by: Melatonin (Melatonin 3 Mg Tablet) 3 mg GT QHS PRN PRN PRN Reason: INSOMNIA Ondansetron HCl (Ondansetron 4 Mg/2 Ml Vial) 4 mg IV Q8H PRN PRN PRN Reason: NAUSEA/VOMITING Pramipexole Dihydrochloride (Pramipexole Di-Hcl 1 Mg Tablet) 1.5 mg GT TIDCM [facility] Last Admin: 05/20/20 16:46 Dose: 1.5 mg Documented by: Rasagiline (Rasagiline Mesylate 1 Mg Tablet) 1 mg GT DAILY [facility] Last Admin: 05/20/20 08:59 Dose: 1 mg Documented by: Senna/Docusate Sodium (Senna/Docusate Sodium 1 Tablet) 2 tablet GT BID [facility] Last Admin: 05/20/20 22:15 Dose: 2 tablet Documented by: Sodium Chloride (0.9% Saline Lock 10 Ml Syringe) 10 - 40 ml IV UD PRN PRN Reason: SALINE FLUSH Last Admin: 05/21/20 04:05 Dose: 20 ml Documented by: STROKE Vital Signs/Narrative: Vital Signs Temp Pulse Resp BP Pulse Ox 05/21/20 06:00 50 L 14 103/64 05/21/20 05:00 53 L 14 87/55 L 05/21/20 04:08 61 18 92 05/21/20 04:00 97.2 F L 58 L 14 104/67 05/21/20 03:59 59 L Medical Necessity - Tobacco Use Smoking Status: Never smoker Assessment/Plan All Active Problems (Last Updated 05/16/20 @ 05:[address] Timothy Crews MD) COVID-19 virus detected (Acute) Pneumonia due to 2019 novel coronavirus (Acute) 74-year-old female with Parkinson's disease who comes in on 05/16/20, with 2- week history of shortness of breath and cough ; 1. Acute hypoxic respiratory failure secondary to Acute COVID-19 infection/new right pneumothorax/gram neg bacteremia Mildly improved, remains intubated, on mechanical ventilator, pulmonology following 2. Acute pneumothorax, unclear etiology, probably spontaneous pneumothorax status post chest tube placement General surgery following, will continue to monitor 3. Acute metabolic encephalopathy/delirium secondary to COVID-19 infection/pneumonia/hypoxia and bacteremia, Patient is currently intubated 4. Acute COVID-19 infection/pneumonia, severe with hypoxia CTA was negative for acute PE, showed multifocal infiltrates On IV dexamethasone. Completed redemsivir. Not a candidate for plasma. ID and pulmonology following. 5. Septic shock/Streptococcus mitis bacteremia, unclear etiology Repeat blood cultures have been negative, Been on antibiotics since 05/17/20; day 3 of Zosyn Will switch to ceftriaxone 2g daily No fevers overnight. ID following; will leave decision to get 2d-echo or not up to ID 6. Parkinson's disease with probably dementia, Continue on Parkinson's disease meds 7. DVT PPx- Lovenox BID Inpatient E&M: [id number] Subs Hosp L2
--- NOTE | 2020-05-21 08:05 | PN_ITS ---
Subjective: Patient did okay overnight. Patient continues to have highly variable blood pressures. Saturations are highly variable. No significant ectopy has been noted. Patient continues to require intermittent Levophed for short periods of time. Patient did not have a spontaneous breathing trial this morning secondary to high oxygen requirements. General: - - Intubated and sedated. RASS -2. Drew appearance. Good vent synchrony. HEENT: Atraumatic, PERRLA, EOMI, Normocephalic, - - No scleral icterus or injection noted Oral: Moist Mucosa, No Gingival or Mucosal Lesions/ Ulcerations Neck: Supple, No JVD, No Nodes, Trachea Midline Lungs: No rhonchi, No wheeze, No rales, Diminished, - - No leak noted from chest tube. Minimal serosanguineous fluid noted Cardiovascular: Regular rate, Regular Rhythm, Normal S1, Normal S2, No murmurs, No rub noted, No Gallop Abdomen: Bowel Sounds Present, Soft, Non Tender, Non-Distended Extremities: No clubbing, No cyanosis, No edema, Capillary Refill Less than 3 Seconds Skin: - - No changes compared to previous Musculoskeletal: No Tenderness to Palpation of Joints or Extremities Lymphatic: No Cervical, Supraclavicular, or Inguinal Adenopathy Neurological: Neuro grossly intact - Positive cough and gag reflexes. Patient is not spontaneously moving, but does respond to painful stimulus Psych/Mental Status: Flat Affect Vital Signs Temp Pulse Resp BP Pulse Ox 36.2 C L 68 14 172/80 H 91 05/21/20 04:00 05/21/20 07:06 05/21/20 07:06 05/21/20 07:00 05/21/20 07:06 Oxygen Flow Rate (L/min) 15 Oxygen Delivery Method Mechanical Ventilator Weight: 81.6 kg Body Mass Index (BMI) 31.4 Intake and Output for Last 24 Hours 05/19/20 05/20/20 05/21/20 23:59 23:59 22:59 Intake Total 2468.76 / 2478.09 2068.01 / 2177.19 1587.37 / 1587.37 Output Total 1090 / 1090 936 / 936 205 / 205 Balance 1378.76 / 1388.09 1132.01 / 1241.19 1382.37 / 1382.37 Labs (Last 48 Hours) 05/19/20 05/20/20 05/20/20 04:20 03:20 03:20 WBC 8.3 RBC 4.27 Hgb 13.0 Hct 39.3 MCV 92.0 MCH 30.4 MCHC 33.1 RDW Std Deviation 44.9 H RDW Coeff of [place] 13.2 Plt Count 301 MPV 10.4 Immature Gran % (Auto) 2.700 H Neut % (Auto) 86.4 H Lymph % (Auto) 8.1 L [place] % (Auto) 2.2 Eos % (Auto) 0.0 Baso % (Auto) 0.6 Absolute Neuts (auto) 7.1 Absolute Lymphs (auto) 0.67 L Lymphocytes % (Manual) 5 L Blast Cells % Not Reportable Nucleated RBC % 0.2 Differential Comment SCANNED Atypical Lymphocytes 1+ Platelet Estimate ADEQUATE Sodium 140 Potassium 3.8 Chloride 104 Carbon Dioxide 29.0 Anion Gap 7 BUN 22 H Creatinine 0.66 Estim Creat Clear Calc 41.45 Est GFR (MDRD) Af Amer 113 Est GFR (MDRD) Non-Af 93 BUN/Creatinine Ratio 33.4 H Glucose 195 H Calcium 8.3 L Total Bilirubin 0.40 AST 22 ALT 13 Alkaline Phosphatase 57 Total Protein 6.1 L Albumin 1.9 L Globulin 4.2 Albumin/Globulin Ratio 0.5 L 05/21/20 05/21/20 04:10 04:10 WBC 7.3 RBC 4.12 L Hgb 12.3 Hct 38.1 MCV 92.5 MCH 29.9 MCHC 32.3 RDW Std Deviation 44.7 H RDW Coeff of [place] 13.2 Plt Count 223 MPV 10.2 Immature Gran % (Auto) 4.800 H Neut % (Auto) 76.3 H Lymph % (Auto) 14.1 L [place] % (Auto) 4.1 Eos % (Auto) 0.4 Baso % (Auto) 0.3 Absolute Neuts (auto) 5.6 Absolute Lymphs (auto) 1.03 Lymphocytes % (Manual) Blast Cells % Nucleated RBC % 0 Differential Comment COMMENT Atypical Lymphocytes 1+ Platelet Estimate Sodium 140 Potassium 4.1 Chloride 102 Carbon Dioxide 33.0 H Anion Gap 5 BUN 24 H Creatinine 0.58 Estim Creat Clear Calc 41.45 Est GFR (MDRD) Af Amer 131 Est GFR (MDRD) Non-Af 108 BUN/Creatinine Ratio 41.5 H Glucose 122 H Calcium 8.4 L Total Bilirubin 0.30 AST 25 ALT 13 Alkaline Phosphatase 51 Total Protein 5.8 L Albumin 1.9 L Globulin 3.9 Albumin/Globulin Ratio 0.5 L Microbiology 05/16/20 04:00 Blood Culture (Wb) - Anticubital Left Blood Culture - Preliminary Non or low reactive biopattern Streptococcus mitis/ oralis Valeria levineae 05/15/20 23:56 Blood Culture (Wb) - Right Forearm Blood Culture - Final No growth in 5 days. 05/18/20 13:00 Blood Culture (Wb) - No Site/Description Given Blood Culture - Preliminary No growth in 48 hours. Medical Necessity - Tobacco Use Smoking Status: Never smoker Assessment/Plan All Active Problems (Last Updated 05/16/20 @ 05:[address] Timothy Crews MD) COVID-19 virus detected (Acute) Pneumonia due to 2019 novel coronavirus (Acute) RECOMMENDATIONS: 1. Continue mechanical ventilation. Wean supplemental oxygen to maintain saturations at or above 90%. 2. Continue Decadron 6 mg daily x10 days. 3. Defer antimicrobial management to infectious diseases. 4. Continue Parkinson's meds to help with vent liberation 5. Monitor daily weights, attempt diuretic challenge 6. Anticipate keeping chest tube on low intermediate suction until patient liberated from the ventilator to avoid tension physiology IMPRESSIONS: 1. Acute hypoxemic respiratory failure secondary to COVID-19 pneumonia Patient with acute decompensation overnight. Infiltrates appear to be progressive on chest x-ray. It is unclear if patient has a superinfection as she is now growing gram-negative rods in her blood. No species or sensitivities have been reported for the majority of findings in her blood culture. These hav e been repeated. BNP was not significantly elevated to suggest CHF as an etiology. Continue to wean PEEP and FiO2 as tolerated. Spontaneous breathing and awakening trials per protocol. Patient with protracted presentation, so was not initiated on plasma or remdesivir. Patient may require transition to Precedex to facilitate liberation from the ventilator, but trying to stabilize respiratory status prior to transition. Patient with multiple possible etiologies leading to ARDS. Will attempt a diuretic challenge. Somewhat limited secondary to blood pressure. 2. Gram-negative sepsis Blood cultures have come back positive for gram-negative sepsis. Exact source is unclear at this time. Infectious disease is following. Patient initial pro calcitonin was relatively low. Wean Levophed as tolerated to maintain a map above 65. This may have added to patient's acute hypoxemic respiratory failure. Unlikely the patient would require stress dose steroids g iven Decadron being used for COVID-19 pneumonia. 3. Advanced age/Parkinson's disease Complicates care, management, recovery and prognosis. Continue home medications as indicated. Continue Parkinson's meds to help with liberation from the ventilator. Some concern for an element of dementia adding to risk for delirium. Continue with appropriate protocol 4. New right-sided pneumothorax Clinical suspicion for complications secondary to #1. Patient is not demonstrating tension physiology at this time. Chest tube has been placed and appears to be functioning appropriately. Patient is not having significant output. TIME: 32 minutes critical care time spent addressing patient's acute hypoxic respiratory failure, gram-negative sepsis, review of all data and collaboration with care team (7:15 AM to 8:15 AM) [id number] Critical care first hour
[2020-05-21] MEDS: Polyethylene Glycol 3350 17 GM PACKET PO (10:52)
[2020-05-21] MEDS: Senna/Docusate Sodium 1 Tablet 2 TABLET GT ×2 (10:53→22:42)
[2020-05-21] MEDS: Pramipexole Di-HCl 1 MG Tablet 1.5 MG GT ×2 (10:53→16:53)
[2020-05-21] MEDS: Famotidine 20 MG Tablet GT ×2 (10:53→22:42)
[2020-05-21] MEDS: dexAMETHasone 4 MG Tablet 6 MG GT (10:53)
[2020-05-21] MEDS: Furosemide 20 MG/2 ML VIAL IV (10:54)
[2020-05-21] MEDS: Enoxaparin 30 MG/0.3 ML Syringe SC ×2 (10:54→22:42)
[2020-05-21] MEDS: Chlorhexidine 15 ML PO ×2 (10:55→22:41)
[2020-05-21] MEDS: Propofol 10MG/Ml 1,000 MG/100 ML Bottle 14.7 MG CONT INF ×3 (11:00→21:10)
[2020-05-22] VITALS (53 sets, daily range): BP systolic 61–194; BP diastolic 43–93; PULSE 52–105; RESP 14–26; TEMP 36.1–36.5; O2SAT 88–99
[2020-05-22] MEDS: Vital AF 1.2 Cal Liquid 1,000 ML 90 ML GT ×3 (00:54→18:07)
[2020-05-22] MEDS: Propofol 10MG/Ml 1,000 MG/100 ML Bottle 14.7 MG CONT INF (03:40)
--- NOTE | 2020-05-22 04:23 | NURSING ---
Attempted to SAT pt, unsuccessful. Pt became severely agitated, vent dyssynchronization, and pulse ox dropped to low 80%s. Reinitiated sedation to allow pt to rest. Recovered within 30 minutes.
[2020-05-22 04:36] LABS: Differential Indicated MANUAL DIFF; Hematocrit 41.3 % (37-47); Hemoglobin 13.6 g/dL (12.0-15.0); Mean Corp Hgb Conc 32.9 g/dL (32-36); Mean Corpuscular Hgb 29.8 pg (27.0-32.0); Mean Corpuscular Volume 90.4 fL (81-99); Mean Platelet Vol. 10.2 fl (6.2-12.0); POSITIVE COUNT YES; POSITIVE MORPHOLOGY YES; Platelet Count 254 K/mm3 (150-450); RBC Distribution Width CV 12.8 % (11.6-14.6); RBC Distribution Width SD 42.1 fl (35.1-43.9); Red Blood Count 4.57 M/mm3 (4.2-5.4); White Blood Count 7.4 K/mm3 (4.4-11.0)
[2020-05-22] MEDS: Carbidopa/Levodopa 25/250 Tablet GT ×4 (04:45→22:42)
[2020-05-22 04:59] LABS: Lymphocyte 9 % (19-41); Metamyelocyte 4 % (0-1); Monocyte 3 % (0-10); Neutrophil-Band 5 % (0-5); Neutrophil-Segmented 83 % (47-70); Total Cells Counted 100 (MANUAL DIFF)
[2020-05-22 05:00] LABS: Absolute Lymphocyte Count 0.67 X10^3/uL (0.83-4.51); Absolute Neutrophil Count 6.5 X10^3/uL (2.0-7.7); Platelet Estimate MOD DEC (ADEQ); Red Cell Morphology NORM C+C NORMAL (NORM C&C)
[2020-05-22 05:33] LABS: ALB/GLOB Ratio 0.4 RATIO (0.9-2.4); AST(SGOT) 37 U/L (15-37); Alanine Aminotransfer ALT/SGPT 10 U/L (13-56); Alkaline Phosphatase 61 U/L (45-117); Anion Gap 4 (5-15); BUN 19 mg/dL (7-18); BUN/Creat Ratio 35.7 RATIO (10-20); Calcium,Total 8.7 mg/dL (8.5-10.1); Chloride 101 mmol/L (98-107); Creatinine, Serum 0.53 mg/dL (0.55-1.02); EST Glomerular Filtration Rate 119 mL/min (>60); Est Glom Filt Rate - Afr Amer 144 mL/min (>60); Estimated Creatinine Clearance 41.45 ml/min; Globulin 4.5 g/dL (2.2-4.2); Glucose 115 mg/dL (74-106); Potassium 3.8 mmol/L (3.5-5.1); Protein, Total 6.5 g/dL (6.4-8.2); Sodium Level 138 mmol/L (136-145)
[2020-05-22] MEDS: TITRATION PARAMETER CHANGE 1 EACH IV (05:42)
--- NOTE | 2020-05-22 06:06 | PCM.PN.INT ---
Subjective: The patient was seen and examined at the bedside this morning. Events from the last 24 hours have been reviewed. The patient is currently afebrile, hemodynamically stable and maintaining appropriate oxygen saturations on assist control mode of mechanical ventilation with an FiO2 requirement of 50%. The patient has been on and off of vasopressor support due to tenuous hemodynamics. She remains sedated on both propofol and fentanyl. The patient failed her spontaneous awakening trial this morning due to agitation and hypoxia. She continues to tolerate tube feeds without issue. She is currently documented to be overall net +6.8 L for the hospital admission. Objective: The patient's most recent lab work, culture data and imaging studies have all been personally reviewed. Coronavirus PCR was positive on May 15. Strep and urine Legionella antigens were negative. General: - - Remains intubated, sedated and mechanically ventilated. No ventilator dyssynchrony noted. HEENT: Atraumatic, Normocephalic Oral: Moist Mucosa, - - Endotracheal and OG tubes remain in place. Neck: Supple, No Nodes, Trachea Midline Lungs: Diminished, - - Stable chest tube with no air leak noted. Cardiovascular: Regular rate, Regular Rhythm Abdomen: Bowel Sounds Present, Soft, Non Tender Extremities: No clubbing, No cyanosis, No edema Skin: No breakdown Musculoskeletal: No Tenderness to Palpation of Joints or Extremities Lymphatic: No Cervical, Supraclavicular, or Inguinal Adenopathy Neurological: - - No focal neurological deficits. Currently sedated on the ventilator. Vital Signs Temp Pulse Resp BP Pulse Ox 97.6 F L 69 14 103/67 92 05/22/20 04:00 05/22/20 05:00 05/22/20 05:00 05/22/20 04:00 05/22/20 05:00 Oxygen Flow Rate (L/min) 15 Oxygen Delivery Method Mechanical Ventilator Weight: 179 lb 0.246 oz Body Mass Index (BMI) 31.4 Intake and Output for Last 24 Hours 05/21/20 05/21/20 05/22/20 00:59 23:59 23:59 Intake Total 1085.51 / 1085.51 Output Total 725 / 725 Balance 360.51 / 360.51 Labs (Last 48 Hours) 05/21/20 05/21/20 05/22/20 04:10 04:10 04:00 WBC 7.3 7.4 RBC 4.12 L 4.57 Hgb 12.3 13.6 Hct 38.1 41.3 MCV 92.5 90.4 MCH 29.9 29.8 MCHC 32.3 32.9 RDW Std Deviation 44.7 H 42.1 RDW Coeff of [place] 13.2 12.8 Plt Count 223 254 MPV 10.2 10.2 Immature Gran % (Auto) 4.800 H Neut % (Auto) 76.3 H Not Reportable Lymph % (Auto) 14.1 L [place] % (Auto) 4.1 Eos % (Auto) 0.4 Baso % (Auto) 0.3 Absolute Neuts (auto) 5.6 6.5 Absolute Lymphs (auto) 1.03 0.67 L Total Counted 100 Neutrophils % (Manual) 83 H Band Neutrophils % 5 Lymphocytes % (Manual) 9 L Monocytes % (Manual) 3 Metamyelocytes % 4 H Nucleated RBC % 0 Differential Comment COMMENT Diff Path Review May foll Atypical Lymphocytes 1+ Platelet Estimate MOD DEC RBC Morphology NORM C+C Sodium 140 Potassium 4.1 Chloride 102 Carbon Dioxide 33.0 H Anion Gap 5 BUN 24 H Creatinine 0.58 Estim Creat Clear Calc 41.45 Est GFR (MDRD) Af Amer 131 Est GFR (MDRD) Non-Af 108 BUN/Creatinine Ratio 41.5 H Glucose 122 H Calcium 8.4 L Total Bilirubin 0.30 AST 25 ALT 13 Alkaline Phosphatase 51 Total Protein 5.8 L Albumin 1.9 L Globulin 3.9 Albumin/Globulin Ratio 0.5 L 05/22/20 04:00 WBC RBC Hgb Hct MCV MCH MCHC RDW Std Deviation RDW Coeff of [place] Plt Count MPV Immature Gran % (Auto) Neut % (Auto) Lymph % (Auto) [place] % (Auto) Eos % (Auto) Baso % (Auto) Absolute Neuts (auto) Absolute Lymphs (auto) Total Counted Neutrophils % (Manual) Band Neutrophils % Lymphocytes % (Manual) Monocytes % (Manual) Metamyelocytes % Nucleated RBC % Differential Comment Diff Path Review Atypical Lymphocytes Platelet Estimate RBC Morphology Sodium 138 Potassium 3.8 Chloride 101 Carbon Dioxide 33.0 H Anion Gap 4 L BUN 19 H Creatinine 0.53 L Estim Creat Clear Calc 41.45 Est GFR (MDRD) Af Amer 144 Est GFR (MDRD) Non-Af 119 BUN/Creatinine Ratio 35.7 H Glucose 115 H Calcium 8.7 Total Bilirubin 0.70 AST 37 ALT 10 L Alkaline Phosphatase 61 Total Protein 6.5 Albumin 2.0 L Globulin 4.5 H Albumin/Globulin Ratio 0.4 L Microbiology 05/16/20 04:00 Blood Culture (Wb) - Anticubital Left Blood Culture - Preliminary Non or low reactive biopattern Streptococcus mitis/ oralis Kocuria abnerae 05/18/20 Unknown Blood Culture (Wb) - No Site/Description Given Blood Culture - Preliminary No growth in 48 hours. 05/15/20 23:56 Blood Culture (Wb) - Right Forearm Blood Culture - Final No growth in 5 days. 05/18/20 13:00 Blood Culture (Wb) - No Site/Description Given Blood Culture - Preliminary No growth in 48 hours. Clinical Impression(s) from Imaging Studies Chest X-Ray 05/15/20 23:39 IMPRESSION: Bilateral pneumonia. Electronically Signed: Billy Cook MD at 1:39 EDT , Service support , Chest CTA 05/16/20 02:01 IMPRESSION: No pulmonary embolus or thoracic aortic dissection. Multifocal pneumonia right greater than left, to include viral pneumonia. Electronically Signed: Billy Cook MD at 3:22 EDT , Service support , Chest X-Ray 05/17/20 20:40 IMPRESSION: Mild increase in bilateral infiltrates. at 2221 Reported and signed by: Indigo Gupta MD Electronically Signed: Indigo Gupta MD at 22:20 EDT Tel , Service support , Chest X-Ray 05/17/20 21:12 IMPRESSION: Increasing bilateral infiltrates. Endotracheal tube in place. at 2222 Reported and signed by: Indigo Gupta MD Electronically Signed: Indigo Gupta MD at 22:21 EDT Tel , Service support , KUB X-Ray 05/17/20 21:15 IMPRESSION: Enteric tube tip in the gastric fundus. Bilateral lung opacities right greater than left unchanged. Electronically Signed: Billy Cook MD at 23:14 EDT , Service support , Chest X-Ray 05/19/20 08:20 IMPRESSION: There is a new 2225% right-sided pneumothorax with persistent bilateral infiltrations worse in the right lung. Electronically Signed: Ar Washington, at 12:19 EDT , Service support , Chest X-Ray 05/19/20 10:40 IMPRESSION: Stable bilateral pulmonary infiltrates. A small caliber right-sided chest tube has been placed. No significant stenosis seen. The support tubes are all in good position. Electronically Signed: Ar Washington, at 10:54 EDT , Service support , Medical Necessity - Tobacco Use Smoking Status: Never smoker Assessment/Plan All Active Problems (Last Updated 05/16/20 @ 05:[address] Timothy Crews MD) COVID-19 virus detected (Acute) Pneumonia due to 2019 novel coronavirus (Acute) RECOMMENDATIONS: 1. Continue patient on assist control mode mechanical ventilation and wean FiO2 to maintain oxygen saturations at or above 90%. 2. Continue Decadron to complete 10-day treatment course. 3. Continue antimicrobials per infectious diseases recommendations. 4. Continue appropriate DVT and GI prophylaxis. 5. Continue tube feeds as tolerated. 6. Continue Levophed, if needed, to maintain a mean arterial pressure at or above 65 mmHg. IMPRESSIONS: 1. Acute hypoxemic respiratory failure secondary to COVID-19 pneumonia The patient presented to the hospital with Covid-like symptoms of approximately 2 weeks duration. Therefore, she was not felt to be a candidate for either remdesivir or convalescent plasma. Although she was initially stable from an oxygenation standpoint, the patient later decompensated and required intubation. The patient will be continued on assist control mode of mechanical ventilation with plans to wean FiO2 to maintain oxygen saturations at or above 90%. Plan to continue Decadron 6 mg daily x10 days. At this time, the patient's tenuous hemodynamics would preclude the use of diuretics. 2. Gram-negative sepsis Continue antimicrobials per infectious diseases recommendations. 3. Acute right-sided pneumothorax Stable at this time. Plan to continue chest tube to wall suction. 4. Advanced age/Parkinson's disease Complicates care, management, recovery and prognosis. Continue home Parkinson's medication regimen. Continue tube feeds as tolerated. TIME: 38 minutes of critical care time, independent of procedures, was spent addressing the patient's acute hypoxemic respiratory failure secondary to COVID-19 pneumonia, gram-negative sepsis, acute right-sided pneumothorax, review of all data and collaboration with the care team. ([id number]) [id number] Critical care first hour
--- NOTE | 2020-05-22 07:36 | PCM.PN.HOSP ---
Patient Problems: Active and Suspected Problems (Last Updated 05/16/20 @ 05:[address] Timothy Crews MD) COVID-19 virus detected (Acute) Pneumonia due to 2019 novel coronavirus (Acute) Reason for Visit: Acute hypoxic respiratory failure Subjective: Patient is a 74-year-old lady who presented with 2-week history of progressive shortness of breath and cough and assessment of acute hypoxic respiratory failure secondary to COVID-19 infection with superimposed new right pneumothorax and gram-negative bacteremia. Admitted to the intensive care unit where patient has since been managed Objective: GENERAL: Patient on the vent HEENT: Atraumatic; EYES; Anicteric, Normal Conjunctiva NECK; supple, normal thyroid, RESPIRATORY: Diminished to auscultation; Chest tube in place CARDIOVASCULAR: Regular S1 S2, GI: soft, normoactive bowel sounds, : No Renal angle tenderness; EXTREMITIES: No edema, no clubbing, MUSCULOSKELETAL: no muscle waisting NEURO: Patient on the vent SKIN: No Rash Vitals/I&O's: Vital Signs Temp Pulse Resp BP Pulse Ox 97.6 F L 53 L 14 66/45 L 93 05/22/20 04:00 05/22/20 07:20 05/22/20 07:20 05/22/20 07:15 05/22/20 07:20 Oxygen Flow Rate (L/min) 15 Oxygen Delivery Method Mechanical Ventilator Weight: 81.2 kg Body Mass Index (BMI) 31.4 Intake and Output for Last 24 Hours 05/21/20 05/21/20 05/22/20 00:59 23:59 23:59 Intake Total 1168.93 / 1168.93 Output Total 725 / 725 Balance 443.93 / 443.93 Microbiology Past 72 Hours 05/16/20 04:00 Blood Culture (Wb) - Anticubital Left Blood Culture - Preliminary Non or low reactive biopattern Streptococcus mitis/ oralis Kocuria kristinae 05/18/20 Unknown Blood Culture (Wb) - No Site/Description Given Blood Culture - Preliminary No growth in 48 hours. 05/15/20 23:56 Blood Culture (Wb) - Right Forearm Blood Culture - Final No growth in 5 days. 05/18/20 13:00 Blood Culture (Wb) - No Site/Description Given Blood Culture - Preliminary No growth in 48 hours. Laboratory Results 05/22/20 04:00: WBC 7.4, RBC 4.57, Hgb 13.6, Hct 41.3, MCV 90.4, MCH 29.8, MCHC 32.9, RDW Std Deviation 42.1, RDW Coeff of [place] 12.8, Plt Count 254, MPV 10.2, Neut % (Auto) Not Reportable, Absolute Neuts (auto) 6.5, Absolute Lymphs (auto) 0.67 L, Total Counted 100, Neutrophils % (Manual) 83 H, Band Neutrophils % 5, Lymphocytes % (Manual) 9 L, Monocytes % (Manual) 3, Metamyelocytes % 4 H, Diff Path Review November, Platelet Estimate MOD DEC, RBC Morphology NORM C+C 05/22/20 04:00: Sodium 138, Potassium 3.8, Chloride 101, Carbon Dioxide 33.0 H, Anion Gap 4 L, BUN 19 H, Creatinine 0.53 L, Estim Creat Clear Calc 41.45, Est GFR (MDRD) Af Amer 144, Est GFR (MDRD) Non-Af 119, BUN/Creatinine Ratio 35.7 H, Glucose 115 H, Calcium 8.7, Total Bilirubin 0.70, AST 37, ALT 10 L, Alkaline Phosphatase 61, Total Protein 6.5, Albumin 2.0 L, Globulin 4.5 H, Albumin/Globulin Ratio 0.4 L Current Medications Acetaminophen (Acetaminophen 650 Mg/20 Ml Udc) 650 mg GT Q6H PRN PRN PRN Reason: Pain Score 1-10/Temp > 100.7 F Albuterol Sulfate (Albuterol Ih 8.5 Gm (Proair) Inhaler (200 Puffs)) 2 puff INHALATION Q4H PRN PRN PRN Reason: SOB &/OR WHEEZING Carbidopa/Levodopa (Carbidopa/Levodopa 25/250 Tablet) 1 tablet GT 0400,1000,1600,2200 [facility] Last Admin: 05/22/20 04:45 Dose: 1 tablet Documented by: Chlorhexidine Gluconate (Chlorhexidine 15 Ml) 15 ml PO BID [facility] Last Admin: 05/21/20 22:41 Dose: 15 ml Documented by: Dexamethasone (Dexamethasone 4 Mg Tablet) 6 mg GT DAILY@0800 [facility] Stop: 05/25/20 08:01 Last Admin: 05/21/20 10:53 Dose: 6 mg Documented by: Enoxaparin Sodium (Enoxaparin 30 Mg/0.3 Ml Syringe) 30 mg SC BID [facility] Last Admin: 05/21/20 22:42 Dose: 30 mg Documented by: Famotidine (Famotidine 20 Mg Tablet) 20 mg GT BID [facility] Last Admin: 05/21/20 22:42 Dose: 20 mg Documented by: Sodium Chloride () 250 mls @ 15 mls/hr IV .[id number] PRN PRN Reason: Saline Flush Last Infusion: 05/19/20 14:51 Dose: Infused Documented by: Sodium Chloride () 250 mls @ 15 mls/hr IV .[id number] PRN PRN Reason: Additional IVPB Infusion Propofol (Diprivan) 1,000 mg in 100 mls @ 4.872 mls/hr CONT INF .Q12H [facility]; Protocol Last Titration: 05/22/20 07:00 Dose: 30 mcg/kg/min, 14.6 mls/hr Documented by: Fentanyl Citrate 1,000 mcg/ (Sodium Chloride) 100 mls @ 2.5 mls/hr CONT INF .Q40H [facility]; Protocol Last Titration: 05/22/20 07:00 Dose: 175 mcg/hr, 17.5 mls/hr Documented by: Norepinephrine Bitartrate 8 mg (/ Sodium Chloride) 250 mls @ 9.375 mls/hr CONT INF .[id number] [facility]; Protocol Last Titration: 05/22/20 07:15 Dose: 2 mcg/min, 3.8 mls/hr Documented by: Enteral Nutritional Formula (Vital Af 1.2 Rg Liquid) 1,000 mls @ 90 mls/hr GT .Q11H7M [facility] Last Admin: 05/22/20 00:54 Dose: 90 mls/hr Documented by: Ceftriaxone Sodium 2 gm/ (Sodium Chloride) 50 mls @ 100 mls/hr IV Q24 [facility] Lorazepam (Lorazepam 2 Mg/Ml Syringe) 2 mg IM Q6H PRN PRN PRN Reason: AGITATION Last Admin: 05/17/20 19:55 Dose: 2 mg Documented by: Melatonin (Melatonin 3 Mg Tablet) 3 mg GT QHS PRN PRN PRN Reason: INSOMNIA Ondansetron HCl (Ondansetron 4 Mg/2 Ml Vial) 4 mg IV Q8H PRN PRN PRN Reason: NAUSEA/VOMITING Pramipexole Dihydrochloride (Pramipexole Di-Hcl 1 Mg Tablet) 1.5 mg GT TIDCM [facility] Last Admin: 05/21/20 16:53 Dose: 1.5 mg Documented by: Rasagiline (Rasagiline Mesylate 1 Mg Tablet) 1 mg GT DAILY [facility] Last Admin: 05/21/20 10:55 Dose: 1 mg Documented by: Senna/Docusate Sodium (Senna/Docusate Sodium 1 Tablet) 2 tablet GT BID [facility] Last Admin: 05/21/20 22:42 Dose: 2 tablet Documented by: Sodium Chloride (0.9% Saline Lock 10 Ml Syringe) 10 - 40 ml IV UD PRN PRN Reason: SALINE FLUSH Last Admin: 05/21/20 10:56 Dose: 40 ml Documented by: STROKE Vital Signs/Narrative: Vital Signs Temp Pulse Resp BP Pulse Ox 05/22/20 07:20 53 L 14 93 05/22/20 07:15 52 L 14 66/45 L 93 05/22/20 07:00 54 L 14 67/47 L 93 05/22/20 06:00 62 14 81/55 L 94 05/22/20 05:00 69 14 105/64 92 05/22/20 04:00 97.6 F L 80 15 103/67 88 Medical Necessity - Tobacco Use Smoking Status: Never smoker Assessment/Plan All Active Problems (Last Updated 05/16/20 @ 05:[address] Timothy Crews MD) COVID-19 virus detected (Acute) Pneumonia due to 2019 novel coronavirus (Acute) Patient is a 74-year-old lady who presented with 2-week history of progressive shortness of breath and cough and assessment of acute hypoxic respiratory failure secondary to COVID-19 infection with superimposed new right pneumothorax and gram-negative bacteremia. Admitted to the intensive care unit where patient has since been managed 1. Acute hypoxic respiratory failure ?Secondary to combination of acute COVID-19 pneumonia, right pneumothorax. Patient was intubated and admitted to the intensive care unit. Vent management currently deferred to pulmonary medicine ?patient remains in ICU condition remains critical requiring high FiO2. 2. Spontaneous pneumothorax -Patient underwent chest tube placement on 04/29/[address] Sparks 3. Acute COVID-19 pneumonia ?Patient managed with remdesivir and dexamethasone 4. Septic shock/Streptococcus mitis bacteremia, Etiology not clear. Managed with IV fluids per protocol as well as broad-spectrum antibiotic therapy, Initially managed with Zosyn switched to Rocephin 5. Parkinson's disease ?Patient is on Sinemet 6. DVT prophylaxis - Lovenox BID Clinical Impression(s) from Imaging Studies Chest X-Ray 05/15/20 23:39 IMPRESSION: Bilateral pneumonia. Electronically Signed: Billy Cook MD at 1:39 EDT , Service support , Chest CTA 05/16/20 02:01 IMPRESSION: No pulmonary embolus or thoracic aortic dissection. Multifocal pneumonia right greater than left, to include viral pneumonia. Electronically Signed: Billy Cook MD at 3:22 EDT , Service support , Chest X-Ray 05/17/20 20:40 IMPRESSION: Mild increase in bilateral infiltrates. at 2221 Reported and signed by: Indigo Gupta MD Electronically Signed: Indigo Gutpa MD at 22:20 EDT Tel , Service support , Chest X-Ray 05/17/20 21:12 IMPRESSION: Increasing bilateral infiltrates. Endotracheal tube in place. at 2222 Reported and signed by: Indigo Gupta MD Electronically Signed: Indigo Gupta MD at 22:21 EDT Tel , Service support , KUB X-Ray 05/17/20 21:15 IMPRESSION: Enteric tube tip in the gastric fundus. Bilateral lung opacities right greater than left unchanged. Electronically Signed: Billy Cook MD at 23:14 EDT , Service support , Chest X-Ray 05/19/20 08:20 IMPRESSION: There is a new 2225% right-sided pneumothorax with persistent bilateral infiltrations worse in the right lung. Electronically Signed: Ar Washington, at 12:19 EDT , Service support , Chest X-Ray 05/19/20 10:40 IMPRESSION: Stable bilateral pulmonary infiltrates. A small caliber right-sided chest tube has been placed. No significant stenosis seen. The support tubes are all in good position. Electronically Signed: Ar Washington, at 10:54 EDT , Service support , Chest X-Ray 05/22/20 10:40 IMPRESSION: Stable examination. There is no evidence of pneumothorax. Electronically Signed: Ar Washington, at 11:23 EST , Service support , Inpatient E&M: [id number] Subs Hosp L3
--- NOTE | 2020-05-22 08:05 | PN.SURG_ITS ---
Patient Problems: Active and Suspected Problems (Last Updated 05/16/20 @ 05:[address] Timothy Crews MD) COVID-19 virus detected (Acute) Pneumonia due to 2019 novel coronavirus (Acute) Subjective: Pt still on 50 fiO2 on vent, per nursing no air leak in canister..reviewed chart/vitals - Physical Exam Vitals/I&O's: Vital Signs Temp Pulse Resp BP Pulse Ox 97.6 F L 53 L 14 66/45 L 93 05/22/20 04:00 05/22/20 07:20 05/22/20 07:20 05/22/20 07:15 05/22/20 07:20 Oxygen Flow Rate (L/min) 15 Oxygen Delivery Method Mechanical Ventilator Weight: 179 lb 0.246 oz Body Mass Index (BMI) 31.4 Intake and Output for Last 24 Hours 05/21/20 05/21/20 05/22/20 00:59 23:59 23:59 Intake Total 1168.93 / 1168.93 Output Total 725 / 725 Balance 443.93 / 443.93 General: - - intub/sedated Comment: PE not completed due to +Covid, to reduce unnecessary exposure- Microbiology Past 72 Hours 05/16/20 04:00 Blood Culture (Wb) - Anticubital Left Blood Culture - Preliminary Non or low reactive biopattern Streptococcus mitis/ oralis Kocuria kristinae 05/18/20 Unknown Blood Culture (Wb) - No Site/Description Given Blood Culture - Preliminary No growth in 48 hours. 05/15/20 23:56 Blood Culture (Wb) - Right Forearm Blood Culture - Final No growth in 5 days. 05/18/20 13:00 Blood Culture (Wb) - No Site/Description Given Blood Culture - Preliminary No growth in 48 hours. Laboratory Results 05/22/20 04:00: WBC 7.4, RBC 4.57, Hgb 13.6, Hct 41.3, MCV 90.4, MCH 29.8, MCHC 32.9, RDW Std Deviation 42.1, RDW Coeff of [place] 12.8, Plt Count 254, MPV 10.2, Neut % (Auto) Not Reportable, Absolute Neuts (auto) 6.5, Absolute Lymphs (auto) 0.67 L, Total Counted 100, Neutrophils % (Manual) 83 H, Band Neutrophils % 5, Lymphocytes % (Manual) 9 L, Monocytes % (Manual) 3, Metamyelocytes % 4 H, Diff Path Review May foll, Platelet Estimate MOD DEC, RBC Morphology NORM C+C 05/22/20 04:00: Sodium 138, Potassium 3.8, Chloride 101, Carbon Dioxide 33.0 H, Anion Gap 4 L, BUN 19 H, Creatinine 0.53 L, Estim Creat Clear Calc 41.45, Est GFR (MDRD) Af Amer 144, Est GFR (MDRD) Non-Af 119, BUN/Creatinine Ratio 35.7 H, Glucose 115 H, Calcium 8.7, Total Bilirubin 0.70, AST 37, ALT 10 L, Alkaline Phosphatase 61, Total Protein 6.5, Albumin 2.0 L, Globulin 4.5 H, Albumin/Globulin Ratio 0.4 L Current Medications Acetaminophen (Acetaminophen 650 Mg/20 Ml Udc) 650 mg GT Q6H PRN PRN PRN Reason: Pain Score 1-10/Temp > 100.7 F Albuterol Sulfate (Albuterol Ih 8.5 Gm (Proair) Inhaler (200 Puffs)) 2 puff INHALATION Q4H PRN PRN PRN Reason: SOB &/OR WHEEZING Carbidopa/Levodopa (Carbidopa/Levodopa 25/250 Tablet) 1 tablet GT 0400,1000,1600,2200 [facility] Last Admin: 05/22/20 04:45 Dose: 1 tablet Documented by: Chlorhexidine Gluconate (Chlorhexidine 15 Ml) 15 ml PO BID [facility] Last Admin: 05/21/20 22:41 Dose: 15 ml Documented by: Dexamethasone (Dexamethasone 4 Mg Tablet) 6 mg GT DAILY@0800 [facility] Stop: 05/25/20 08:01 Last Admin: 05/21/20 10:53 Dose: 6 mg Documented by: Enoxaparin Sodium (Enoxaparin 30 Mg/0.3 Ml Syringe) 30 mg SC BID [facility] Last Admin: 05/21/20 22:42 Dose: 30 mg Documented by: Famotidine (Famotidine 20 Mg Tablet) 20 mg GT BID [facility] Last Admin: 05/21/20 22:42 Dose: 20 mg Documented by: Sodium Chloride () 250 mls @ 15 mls/hr IV .[id number] PRN PRN Reason: Saline Flush Last Infusion: 05/19/20 14:51 Dose: Infused Documented by: Sodium Chloride () 250 mls @ 15 mls/hr IV .[id number] PRN PRN Reason: Additional IVPB Infusion Propofol (Diprivan) 1,000 mg in 100 mls @ 4.872 mls/hr CONT INF .Q12H [facility]; Protocol Last Titration: 05/22/20 07:00 Dose: 30 mcg/kg/min, 14.6 mls/hr Documented by: Fentanyl Citrate 1,000 mcg/ (Sodium Chloride) 100 mls @ 2.5 mls/hr CONT INF .Q40H [facility]; Protocol Last Titration: 05/22/20 07:00 Dose: 175 mcg/hr, 17.5 mls/hr Documented by: Norepinephrine Bitartrate 8 mg (/ Sodium Chloride) 250 mls @ 9.375 mls/hr CONT INF .[id number] [facility]; Protocol Last Titration: 05/22/20 07:15 Dose: 2 mcg/min, 3.8 mls/hr Documented by: Enteral Nutritional Formula (Vital Af 1.2 Rg Liquid) 1,000 mls @ 90 mls/hr GT .Q11H7M [facility] Last Admin: 05/22/20 00:54 Dose: 90 mls/hr Documented by: Ceftriaxone Sodium 2 gm/ (Sodium Chloride) 50 mls @ 100 mls/hr IV Q24 [facility] Lorazepam (Lorazepam 2 Mg/Ml Syringe) 2 mg IM Q6H PRN PRN PRN Reason: AGITATION Last Admin: 05/17/20 19:55 Dose: 2 mg Documented by: Melatonin (Melatonin 3 Mg Tablet) 3 mg GT QHS PRN PRN PRN Reason: INSOMNIA Ondansetron HCl (Ondansetron 4 Mg/2 Ml Vial) 4 mg IV Q8H PRN PRN PRN Reason: NAUSEA/VOMITING Pramipexole Dihydrochloride (Pramipexole Di-Hcl 1 Mg Tablet) 1.5 mg GT TIDCM [facility] Last Admin: 05/21/20 16:53 Dose: 1.5 mg Documented by: Rasagiline (Rasagiline Mesylate 1 Mg Tablet) 1 mg GT DAILY [facility] Last Admin: 05/21/20 10:55 Dose: 1 mg Documented by: Senna/Docusate Sodium (Senna/Docusate Sodium 1 Tablet) 2 tablet GT BID [facility] Last Admin: 05/21/20 22:42 Dose: 2 tablet Documented by: Sodium Chloride (0.9% Saline Lock 10 Ml Syringe) 10 - 40 ml IV UD PRN PRN Reason: SALINE FLUSH Last Admin: 05/21/20 10:56 Dose: 40 ml Documented by: Medical Necessity - Tobacco Use Smoking Status: Never smoker Assessment/Plan All Active Problems (Last Updated 05/16/20 @ 05:[address] Timothy Crews MD) COVID-19 virus detected (Acute) Pneumonia due to 2019 novel coronavirus (Acute) 74-year-old female on mechanical ventilator due to Covid, right pneumothorax s/p right 14 Fr chest tube no air leak per nursing, continue -20 suction while on vent. will hold off on CXR unless needed due to change in oxygenation Marina Tom M.D. Pager: [phone] [facility] [address] [place] [address], [facility], [address] [place] [address] Office: [phone] Inpatient E&M: [id number] [facility] Hosp L1
[2020-05-22] MEDS: dexAMETHasone 4 MG Tablet 6 MG GT (08:54)
[2020-05-22] MEDS: Pramipexole Di-HCl 1 MG Tablet 1.5 MG GT ×3 (08:55→17:11)
[2020-05-22] MEDS: Enoxaparin 30 MG/0.3 ML Syringe SC ×2 (08:57→22:42)
[2020-05-22] MEDS: Chlorhexidine 15 ML PO ×2 (08:57→22:42)
[2020-05-22] MEDS: Senna/Docusate Sodium 1 Tablet 2 TABLET GT (08:58)
[2020-05-22] MEDS: Famotidine 20 MG Tablet GT ×2 (08:58→22:42)
[2020-05-22 10:23] LABS: Pathologist Review Reviewed
--- NOTE | 2020-05-22 10:27 | CASEMGMT ---
RN CM Note: participated in ICU interdisciplinary rounds. Daughter Kenya was able to participate via phone. Pt remains on 50% vent, IV antibiotic, Presedex gtt, Fentanyl IV, Levophed IV. Failed mobility. DC planning on hold. Patient was living @ home with her prior to admission. DC PLAN: ISAC FAULKNER RN ACM
--- NOTE | 2020-05-22 10:40 | RAD_ITS ---
STUDY: X-RAY CHEST REASON FOR EXAM: Female, 74 years old. CHECK POSITION OF CHEST TUBE TECHNIQUE: Single AP portable view of the chest. COMPARISON: Comparison is made with prior study dated 05/19/2020. FINDINGS: The small caliber right-sided chest tube is in situ. Its position is in the mid lateral portion of the right hemithorax. This is unchanged. Endotracheal tube is seen with tip at 4.1 sinus proximal to fco. An orogastric tube is present with tip below the right hemidiaphragm. A right-sided PICC line catheter is in place with the tip at the junction of the superior vena cava and right atrium. Stable bilateral infiltrates. Normal size heart. Normal mediastinum and julia. Normal visualized pulmonary arteries. Normal visualized aortic arch and descending thoracic aorta. Normal visualized thoracic spine. Normal visualized ribs, clavicles, and shoulders. There is no demonstrated abnormality of the visualized soft tissue structures of the upper abdomen. RAD/Chest 1 View (Portable) IMPRESSION: Stable examination. There is no evidence of pneumothorax. Electronically Signed: Ar Washington, at 11:23 EST , Service support ,
[2020-05-22] MEDS: Polyethylene Glycol 3350 17 GM PACKET GT (12:12)
[2020-05-22 12:20] LABS: Pathologist Review Reviewed
[2020-05-22] MEDS: Dexmedetomidine 400 mcg in 0.9% NS 96 mL 10.2 MCG CONT INF ×2 (13:46→19:18)
[2020-05-22] MEDS: Insulin Lispro 100 UNIT/ML INSULN.PEN SC (17:06)
[2020-05-22 17:16] LABS: Bedside Glucose 252 mg/dL (70-110)
--- NOTE | 2020-05-22 19:15 | PN.ID_ITS ---
Patient Problems: Active and Suspected Problems (Last Updated 05/16/20 @ 05:[address] Timothy Crews MD) COVID-19 virus detected (Acute) Pneumonia due to 2019 novel coronavirus (Acute) Subjective: On vent, no fever - Physical Exam Vitals/I&O's: Vital Signs Temp Pulse Resp BP Pulse Ox 97.0 F L 104 H 23 H 104/63 99 05/22/20 12:00 05/22/20 19:00 05/22/20 19:00 05/22/20 18:00 05/22/20 19:00 Oxygen Flow Rate (L/min) 60 Oxygen Delivery Method Mechanical Ventilator Weight: 81.2 kg Body Mass Index (BMI) 31.4 Intake and Output for Last 24 Hours 05/21/20 05/21/20 05/22/20 00:59 23:59 23:59 Intake Total 1721.26 / 1721.26 Output Total 1220 / 1220 Balance 501.26 / 501.26 General: No apparent distress Lungs: Diminished Cardiovascular: Regular rate, Regular Rhythm Abdomen: Soft, Non Tender, Non-Distended Skin: No rashes Microbiology Past 72 Hours 05/22/20 04:00 Sputum, Tracheal Aspirate Gram Stain - Final 05/16/20 04:00 Blood Culture (Wb) - Anticubital Left Blood Culture - Preliminary Unidentified Organism Streptococcus mitis/ oralis Kocuria kristinae 05/18/20 Unknown Blood Culture (Wb) - No Site/Description Given Blood Culture - Preliminary No growth in 48 hours. 05/15/20 23:56 Blood Culture (Wb) - Right Forearm Blood Culture - Final No growth in 5 days. 05/18/20 13:00 Blood Culture (Wb) - No Site/Description Given Blood Culture - Preliminary No growth in 48 hours. Laboratory Results 05/19/20 04:20: Diff Path Review Reviewed 05/22/20 04:00: WBC 7.4, RBC 4.57, Hgb 13.6, Hct 41.3, MCV 90.4, MCH 29.8, MCHC 32.9, RDW Std Deviation 42.1, RDW Coeff of [place] 12.8, Plt Count 254, MPV 10.2, Neut % (Auto) Not Reportable, Absolute Neuts (auto) 6.5, Absolute Lymphs (auto) 0.67 L, Total Counted 100, Neutrophils % (Manual) 83 H, Band Neutrophils % 5, Lymphocytes % (Manual) 9 L, Monocytes % (Manual) 3, Metamyelocytes % 4 H, Diff Path Review Reviewed, Platelet Estimate MOD DEC, RBC Morphology NORM C+C 05/22/20 04:00: Sodium 138, Potassium 3.8, Chloride 101, Carbon Dioxide 33.0 H, Anion Gap 4 L, BUN 19 H, Creatinine 0.53 L, Estim Creat Clear Calc 41.45, Est GFR (MDRD) Af Amer 144, Est GFR (MDRD) Non-Af 119, BUN/Creatinine Ratio 35.7 H, Glucose 115 H, Calcium 8.7, Total Bilirubin 0.70, AST 37, ALT 10 L, Alkaline Phosphatase 61, Total Protein 6.5, Albumin 2.0 L, Globulin 4.5 H, Albumin/Globulin Ratio 0.4 L 05/22/20 17:02: POC Glucose 252 H Current Medications Acetaminophen (Acetaminophen 650 Mg/20 Ml Udc) 650 mg GT Q6H PRN PRN PRN Reason: Pain Score 1-10/Temp > 100.7 F Albuterol Sulfate (Albuterol Ih 8.5 Gm (Proair) Inhaler (200 Puffs)) 2 puff INHALATION Q4H PRN PRN PRN Reason: SOB &/OR WHEEZING Carbidopa/Levodopa (Carbidopa/Levodopa 25/250 Tablet) 1 tablet GT 0400,1000,1600,2200 [facility] Last Admin: 05/22/20 17:11 Dose: 1 tablet Documented by: Chlorhexidine Gluconate (Chlorhexidine 15 Ml) 15 ml PO BID [facility] Last Admin: 05/22/20 08:57 Dose: 15 ml Documented by: Dexamethasone (Dexamethasone 4 Mg Tablet) 6 mg GT DAILY@0800 [facility] Stop: 05/25/20 08:01 Last Admin: 05/22/20 08:54 Dose: 6 mg Documented by: Dextrose (Dextrose 50%-Water 25 Gm/50 Ml Disp.Syrin) 0 gm IV X1 PRN; Protocol PRN Reason: Hypoglycemia Enoxaparin Sodium (Enoxaparin 30 Mg/0.3 Ml Syringe) 30 mg SC BID [facility] Last Admin: 05/22/20 08:57 Dose: 30 mg Documented by: Famotidine (Famotidine 20 Mg Tablet) 20 mg GT BID [facility] Last Admin: 05/22/20 08:58 Dose: 20 mg Documented by: Glucagon (Glucagon 1 Mg/Ml Syringe) 1 mg IM .X1 PRN PRN Reason: Hypoglycemia Sodium Chloride () 250 mls @ 15 mls/hr IV .[id number] PRN PRN Reason: Saline Flush Last Infusion: 05/19/20 14:51 Dose: Infused Documented by: Sodium Chloride () 250 mls @ 15 mls/hr IV .[id number] PRN PRN Reason: Additional IVPB Infusion Fentanyl Citrate 1,000 mcg/ (Sodium Chloride) 100 mls @ 2.5 mls/hr CONT INF .Q40H [facility]; Protocol Last Admin: 05/22/20 18:54 Dose: 175 mcg/hr, 17.5 mls/hr Documented by: Norepinephrine Bitartrate 8 mg (/ Sodium Chloride) 250 mls @ 9.375 mls/hr CONT INF .[id number] [facility]; Protocol Last Titration: 05/22/20 18:00 Dose: 0 mcg/min, 0 mls/hr Documented by: Enteral Nutritional Formula (Vital Af 1.2 Rg Liquid) 1,000 mls @ 90 mls/hr GT .Q11H7M [facility] Last Admin: 05/22/20 18:07 Dose: 90 mls/hr Documented by: Ceftriaxone Sodium 2 gm/ (Sodium Chloride) 50 mls @ 100 mls/hr IV Q24 [facility] Last Infusion: 05/22/20 13:49 Dose: Infused Documented by: Dexmedetomidine HCl 400 mcg/ (Sodium Chloride) 100 mls @ 10.15 mls/hr CONT INF .Q9H52M [facility]; Protocol Last Titration: 05/22/20 18:49 Dose: Infused Documented by: Insulin Human Lispro (Insulin Lispro 100 Unit/Ml Insuln.Pen) 0 unit SC Q6 [facility]; Protocol Last Admin: 05/22/20 17:06 Dose: 3 u Documented by: Lorazepam (Lorazepam 2 Mg/Ml Syringe) 2 mg IM Q6H PRN PRN PRN Reason: AGITATION Last Admin: 05/17/20 19:55 Dose: 2 mg Documented by: Melatonin (Melatonin 3 Mg Tablet) 3 mg GT QHS PRN PRN PRN Reason: INSOMNIA Ondansetron HCl (Ondansetron 4 Mg/2 Ml Vial) 4 mg IV Q8H PRN PRN PRN Reason: NAUSEA/VOMITING Polyethylene Glycol (Polyethylene Glycol 3350 17 Gm Packet) 17 gm GT DAILY [facility] Last Admin: 05/22/20 12:12 Dose: 17 gm Documented by: Pramipexole Dihydrochloride (Pramipexole Di-Hcl 1 Mg Tablet) 1.5 mg GT TIDCM [facility] Last Admin: 05/22/20 17:11 Dose: 1.5 mg Documented by: Rasagiline (Rasagiline Mesylate 1 Mg Tablet) 1 mg GT DAILY [facility] Last Admin: 05/22/20 08:56 Dose: 1 mg Documented by: Senna/Docusate Sodium (Senna/Docusate Sodium 1 Tablet) 2 tablet GT BID [facility] Last Admin: 05/22/20 08:58 Dose: 2 tablet Documented by: Sodium Chloride (0.9% Saline Lock 10 Ml Syringe) 10 - 40 ml IV UD PRN PRN Reason: SALINE FLUSH Last Admin: 05/21/20 10:56 Dose: 40 ml Documented by: Medical Necessity - Tobacco Use Smoking Status: Never smoker Route of nutrition/ use of supplements: [] Nutritional Intake: [] IV Site: [] Allen Catheter: [] - Assessment/Plan Antibiotics: [] Assessment/Plan: [] Active and Suspected Problems (Last Updated 05/16/20 @ 05:[address] Timothy Crews MD) COVID-19 virus detected (Acute) Pneumonia due to 2019 novel coronavirus (Acute) covid with hypoxia - Cont dex. PCT was 0.2, relatively asymptomatic. CT showed no PE, mild elevated d-dimer. UAg neg. Remains on vent. Now with pneumothorax. On 70% O2 this afternoon. [place] and strep bacteremia - narrowed to ceftriaxone. Will follow
[2020-05-23] VITALS (43 sets, daily range): BP systolic 77–175; BP diastolic 41–94; PULSE 57–114; RESP 14–26; TEMP 36.6–37.4; O2SAT 88–98
[2020-05-23] MEDS: Insulin Lispro 100 UNIT/ML INSULN.PEN SC ×3 (00:28→18:56)
[2020-05-23 00:50] LABS: Bedside Glucose 153 mg/dL (70-110)
[2020-05-23] MEDS: Carbidopa/Levodopa 25/250 Tablet GT ×3 (04:05→22:00)
[2020-05-23] MEDS: Dexmedetomidine 400 mcg in 0.9% NS 96 mL 12.2 MCG CONT INF (04:07)
[2020-05-23 04:41] LABS: Hematocrit 38.8 % (37-47); Mean Corp Hgb Conc 33.5 g/dL (32-36); Mean Corpuscular Hgb 29.8 pg (27.0-32.0); Mean Platelet Vol. 10.3 fl (6.2-12.0); POSITIVE COUNT YES; POSITIVE MORPHOLOGY YES; Platelet Count 221 K/mm3 (150-450); RBC Distribution Width CV 12.9 % (11.6-14.6); RBC Distribution Width SD 42.2 fl (35.1-43.9); Red Blood Count 4.36 M/mm3 (4.2-5.4); White Blood Count 10.5 K/mm3 (4.4-11.0)
[2020-05-23 04:42] LABS: Differential Indicated MANUAL DIFF
[2020-05-23 04:57] LABS: ALB/GLOB Ratio 0.5 RATIO (0.9-2.4); AST(SGOT) 51 U/L (15-37); Alanine Aminotransfer ALT/SGPT 20 U/L (13-56); Alkaline Phosphatase 63 U/L (45-117); Anion Gap 5 (5-15); BUN 18 mg/dL (7-18); BUN/Creat Ratio 36.1 RATIO (10-20); Calcium,Total 8.1 mg/dL (8.5-10.1); Chloride 99 mmol/L (98-107); EST Glomerular Filtration Rate 129 mL/min (>60); Est Glom Filt Rate - Afr Amer 156 mL/min (>60); Estimated Creatinine Clearance 41.45 ml/min; Globulin 4.4 g/dL (2.2-4.2); Glucose 136 mg/dL (74-106); Potassium 3.6 mmol/L (3.5-5.1); Protein, Total 6.4 g/dL (6.4-8.2); Sodium Level 137 mmol/L (136-145)
[2020-05-23 05:02] LABS: Neutrophil-Band 5 % (0-5); Neutrophil-Segmented 87 % (47-70); Total Cells Counted 100 (MANUAL DIFF)
[2020-05-23 05:03] LABS: Absolute Neutrophil Count 9.7 X10^3/uL (2.0-7.7); Lymphocyte 5 % (19-41); Metamyelocyte 2 % (0-1); Monocyte 3 % (0-10)
[2020-05-23 05:04] LABS: Absolute Lymphocyte Count 0.53 X10^3/uL (0.83-4.51); Platelet Estimate ADEQUATE (ADEQ); Red Cell Morphology NORM C+C NORMAL (NORM C&C)
[2020-05-23] MEDS: TITRATION PARAMETER CHANGE 1 EACH IV ×2 (05:31→08:34)
--- NOTE | 2020-05-23 06:04 | PN_ITS ---
Subjective: The patient was seen and examined at the bedside this morning. Events from the last 24 hours have been reviewed. The patient is currently afebrile, hemodynamically stable and maintaining appropriate oxygen saturations on assist control mode of mechanical ventilation with an FiO2 requirement of 50%. The patient is currently documented to be overall net +8.2 L for the hospital admission. The patient has been off of Levophed since yesterday. She continues to tolerate tube feeds and did have a bowel movement. Objective: The patient's most recent lab work, culture data and imaging studies have all been personally reviewed. Coronavirus PCR was positive on May 15. Strep and urine Legionella antigens were negative. The remainder of the patient's infectious work-up has been unrevealing to date. General: - - Remains intubated, sedated and mechanically ventilated. HEENT: Atraumatic, Normocephalic Oral: No Gingival or Mucosal Lesions/ Ulcerations, - - Stable endotracheal and OG tubes Neck: Supple, No Nodes, Trachea Midline Lungs: Diminished, Tachypneic, - - Stable chest tube without any air leaks notable Cardiovascular: Regular rate, Regular Rhythm Abdomen: Bowel Sounds Present, Soft, Non Tender Extremities: No clubbing, No cyanosis, Edema Skin: No breakdown Musculoskeletal: No Muscle Wasting Lymphatic: No Cervical, Supraclavicular, or Inguinal Adenopathy Neurological: - - No focal neurological deficits. The patient is currently sedated but will not follow any commands. Vital Signs Temp Pulse Resp BP Pulse Ox 99.3 F H 108 H 20 H 161/91 H 97 05/23/20 04:00 05/23/20 05:17 05/23/20 05:17 05/23/20 05:00 05/23/20 05:17 Oxygen Flow Rate (L/min) 60 Oxygen Delivery Method Mechanical Ventilator Weight: 177 lb 7.554 oz Body Mass Index (BMI) 31.4 Intake and Output for Last 24 Hours 05/21/20 05/22/20 05/23/20 23:59 23:59 23:59 Intake Total 2360.75 / 2768.45 1154.99 / 1154.99 Output Total 1435 / 1535 231 / 231 Balance 925.75 / 1233.45 923.99 / 923.99 Labs (Last 48 Hours) 05/19/20 05/22/20 05/22/20 04:20 04:00 04:00 WBC 7.4 RBC 4.57 Hgb 13.6 Hct 41.3 MCV 90.4 MCH 29.8 MCHC 32.9 RDW Std Deviation 42.1 RDW Coeff of [place] 12.8 Plt Count 254 MPV 10.2 Neut % (Auto) Not Reportable Absolute Neuts (auto) 6.5 Absolute Lymphs (auto) 0.67 L Total Counted 100 Neutrophils % (Manual) 83 H Band Neutrophils % 5 Lymphocytes % (Manual) 9 L Monocytes % (Manual) 3 Metamyelocytes % 4 H Diff Path Review Reviewed Reviewed Platelet Estimate MOD DEC RBC Morphology NORM C+C Sodium 138 Potassium 3.8 Chloride 101 Carbon Dioxide 33.0 H Anion Gap 4 L BUN 19 H Creatinine 0.53 L Estim Creat Clear Calc 41.45 Est GFR (MDRD) Af Amer 144 Est GFR (MDRD) Non-Af 119 BUN/Creatinine Ratio 35.7 H Glucose 115 H Calcium 8.7 Total Bilirubin 0.70 AST 37 ALT 10 L Alkaline Phosphatase 61 Total Protein 6.5 Albumin 2.0 L Globulin 4.5 H Albumin/Globulin Ratio 0.4 L POC Glucose 05/22/20 05/23/20 05/23/20 17:02 00:07 04:30 WBC 10.5 RBC 4.36 Hgb 13.0 Hct 38.8 MCV 89.0 MCH 29.8 MCHC 33.5 RDW Std Deviation 42.2 RDW Coeff of [place] 12.9 Plt Count 221 MPV 10.3 Neut % (Auto) Not Reportable Absolute Neuts (auto) 9.7 H Absolute Lymphs (auto) 0.53 L Total Counted 100 Neutrophils % (Manual) 87 H Band Neutrophils % 5 Lymphocytes % (Manual) 5 L Monocytes % (Manual) 3 Metamyelocytes % 2 H Diff Path Review May foll Platelet Estimate ADEQUATE RBC Morphology NORM C+C Sodium Potassium Chloride Carbon Dioxide Anion Gap BUN Creatinine Estim Creat Clear Calc Est GFR (MDRD) Af Amer Est GFR (MDRD) Non-Af BUN/Creatinine Ratio Glucose Calcium Total Bilirubin AST ALT Alkaline Phosphatase Total Protein Albumin Globulin Albumin/Globulin Ratio POC Glucose 252 H 153 H 05/23/20 04:30 WBC RBC Hgb Hct MCV MCH MCHC RDW Std Deviation RDW Coeff of [place] Plt Count MPV Neut % (Auto) Absolute Neuts (auto) Absolute Lymphs (auto) Total Counted Neutrophils % (Manual) Band Neutrophils % Lymphocytes % (Manual) Monocytes % (Manual) Metamyelocytes % Diff Path Review Platelet Estimate RBC Morphology Sodium 137 Potassium 3.6 Chloride 99 Carbon Dioxide 33.0 H Anion Gap 5 BUN 18 Creatinine 0.50 L Estim Creat Clear Calc 41.45 Est GFR (MDRD) Af Amer 156 Est GFR (MDRD) Non-Af 129 BUN/Creatinine Ratio 36.1 H Glucose 136 H Calcium 8.1 L Total Bilirubin 0.80 AST 51 H ALT 20 Alkaline Phosphatase 63 Total Protein 6.4 Albumin 2.0 L Globulin 4.4 H Albumin/Globulin Ratio 0.5 L POC Glucose Microbiology 05/22/20 04:00 Sputum, Tracheal Aspirate Gram Stain - Final 05/16/20 04:00 Blood Culture (Wb) - Anticubital Left Blood Culture - Preliminary Unidentified Organism Streptococcus mitis/ oralis Kocuria kristinae 05/18/20 Unknown Blood Culture (Wb) - No Site/Description Given Blood Culture - Preliminary No growth in 48 hours. 05/15/20 23:56 Blood Culture (Wb) - Right Forearm Blood Culture - Final No growth in 5 days. Clinical Impression(s) from Imaging Studies Chest X-Ray 05/15/20 23:39 IMPRESSION: Bilateral pneumonia. Electronically Signed: Billy Cook MD at 1:39 EDT , Service support , Chest CTA 05/16/20 02:01 IMPRESSION: No pulmonary embolus or thoracic aortic dissection. Multifocal pneumonia right greater than left, to include viral pneumonia. Electronically Signed: Billy Cook MD at 3:22 EDT , Service support , Chest X-Ray 05/17/20 20:40 IMPRESSION: Mild increase in bilateral infiltrates. at 2221 Reported and signed by: Indigo Gupta MD Electronically Signed: Indigo Gupta MD at 22:20 EDT Tel , Service support , Chest X-Ray 05/17/20 21:12 IMPRESSION: Increasing bilateral infiltrates. Endotracheal tube in place. at 2222 Reported and signed by: Indigo Gupta MD Electronically Signed: Indigo Gupta MD at 22:21 EDT Tel , Service support , KUB X-Ray 05/17/20 21:15 IMPRESSION: Enteric tube tip in the gastric fundus. Bilateral lung opacities right greater than left unchanged. Electronically Signed: Billy Cook MD at 23:14 EDT , Service support , Chest X-Ray 05/19/20 08:20 IMPRESSION: There is a new 2225% right-sided pneumothorax with persistent bilateral infiltrations worse in the right lung. Electronically Signed: Ar Washington, at 12:19 EDT , Service support , Chest X-Ray 05/19/20 10:40 IMPRESSION: Stable bilateral pulmonary infiltrates. A small caliber right-sided chest tube has been placed. No significant stenosis seen. The support tubes are all in good position. Electronically Signed: Ar Washington, at 10:54 EDT , Service support , Chest X-Ray 05/22/20 10:40 IMPRESSION: Stable examination. There is no evidence of pneumothorax. Electronically Signed: Ar Washington, at 11:23 EST , Service support , Medical Necessity - Tobacco Use Smoking Status: Never smoker Assessment/Plan All Active Problems (Last Updated 05/16/20 @ 05:[address] Timothy Crews MD) COVID-19 virus detected (Acute) Pneumonia due to 2019 novel coronavirus (Acute) RECOMMENDATIONS: 1. Continue patient on assist control mode mechanical ventilation and wean FiO2 to maintain oxygen saturations at or above 90%. 2. Continue Decadron to complete 10-day treatment course. 3. Continue antimicrobials per infectious diseases recommendations. 4. Continue appropriate DVT and GI prophylaxis. 5. Continue tube feeds as tolerated. 6. Given improvements in hemodynamics today, will start gentle diuresis with IV Lasix. IMPRESSIONS: 1. Acute hypoxemic respiratory failure secondary to COVID-19 pneumonia The patient presented to the hospital with Covid-like symptoms of approximately 2 weeks duration. Therefore, she was not felt to be a candidate for either remdesivir or convalescent plasma. Although she was initially stable from an oxygenation standpoint, the patient later decompensated and required intubation. The patient will be continued on assist control mode of mechanical ventilation with plans to wean FiO2 to maintain oxygen saturations at or above 90%. Plan to continue Decadron 6 mg daily x10 days. We will attempt a trial of diuresis today as tolerated by hemodynamics and renal function. 2. Gram-negative sepsis Continue antimicrobials per infectious diseases recommendations. 3. Acute right-sided pneumothorax Stable at this time. Plan to continue chest tube to wall suction. 4. Advanced age/Parkinson's disease Complicates care, management, recovery and prognosis. Continue home Parkinson's medication regimen. Continue tube feeds as tolerated. TIME: 35 minutes of critical care time, independent of procedures, was spent addressing the patient's acute hypoxemic respiratory failure secondary to COVID- 19 pneumonia, gram-negative sepsis, acute right-sided pneumothorax, review of a ll data and collaboration with the care team. [id number]) [phone]: [id number] Critical care first hour
--- NOTE | 2020-05-23 07:13 | PCM.PN.HOSP ---
Patient Problems: Active and Suspected Problems (Last Updated 05/16/20 @ 05:[address] Timothy Crews MD) COVID-19 virus detected (Acute) Pneumonia due to 2019 novel coronavirus (Acute) Reason for Visit: COVID-19 Acute hypoxic respiratory failure on the vent Subjective: Patient seen still remains on the vent. Blood pressure is relatively low systolic blood pressure in the 80s. Case discussed with pulmonary medicine plans for patient to be initiated on pressors. Objective: GENERAL: Patient on the vent HEENT: Atraumatic; EYES; Anicteric, Normal Conjunctiva NECK; supple, normal thyroid, RESPIRATORY: Diminished to auscultation; Chest tube in place CARDIOVASCULAR: Regular S1 S2, GI: soft, normoactive bowel sounds, : No Renal angle tenderness; EXTREMITIES: No edema, no clubbing, MUSCULOSKELETAL: no muscle waisting NEURO: Patient on the vent SKIN: No Rash Vitals/I&O's: Vital Signs Temp Pulse Resp BP Pulse Ox 99.3 F H 91 17 128/65 H 96 05/23/20 04:00 05/23/20 06:00 05/23/20 06:00 05/23/20 06:00 05/23/20 06:00 Oxygen Flow Rate (L/min) 60 Oxygen Delivery Method Mechanical Ventilator Weight: 80.5 kg Body Mass Index (BMI) 31.4 Intake and Output for Last 24 Hours 05/21/20 05/22/20 05/23/20 23:59 23:59 23:59 Intake Total 2360.75 / 2768.45 1234.15 / 1234.15 Output Total 1435 / 1535 231 / 231 Balance 925.75 / 1233.45 1003.15 / 1003.15 Microbiology Past 72 Hours 05/22/20 04:00 Sputum, Tracheal Aspirate Gram Stain - Final 05/16/20 04:00 Blood Culture (Wb) - Anticubital Left Blood Culture - Preliminary Unidentified Organism Streptococcus mitis/ oralis Kocuria juniistinae 05/18/20 Unknown Blood Culture (Wb) - No Site/Description Given Blood Culture - Preliminary No growth in 48 hours. 05/15/20 23:56 Blood Culture (Wb) - Right Forearm Blood Culture - Final No growth in 5 days. 05/18/20 13:00 Blood Culture (Wb) - No Site/Description Given Blood Culture - Preliminary No growth in 48 hours. Laboratory Results 05/19/20 04:20: Diff Path Review Reviewed 05/22/20 04:00: Diff Path Review Reviewed 05/22/20 17:02: POC Glucose 252 H 05/23/20 00:07: POC Glucose 153 H 05/23/20 04:30: WBC 10.5, RBC 4.36, Hgb 13.0, Hct 38.8, MCV 89.0, MCH 29.8, MCHC 33.5, RDW Std Deviation 42.2, RDW Coeff of [place] 12.9, Plt Count 221, MPV 10.3, Neut % (Auto) Not Reportable, Absolute Neuts (auto) 9.7 H, Absolute Lymphs (auto) 0.53 L, Total Counted 100, Neutrophils % (Manual) 87 H, Band Neutrophils % 5, Lymphocytes % (Manual) 5 L, Monocytes % (Manual) 3, Metamyelocytes % 2 H, Diff Path Review May foll, Platelet Estimate ADEQUATE, RBC Morphology NORM C+C 05/23/20 04:30: Sodium 137, Potassium 3.6, Chloride 99, Carbon Dioxide 33.0 H, Anion Gap 5, BUN 18, Creatinine 0.50 L, Estim Creat Clear Calc 41.45, Est GFR (MDRD) Af Amer 156, Est GFR (MDRD) Non-Af 129, BUN/Creatinine Ratio 36.1 H, Glucose 136 H, Calcium 8.1 L, Total Bilirubin 0.80, AST 51 H, ALT 20, Alkaline Phosphatase 63, Total Protein 6.4, Albumin 2.0 L, Globulin 4.4 H, Albumin/Globulin Ratio 0.5 L Current Medications Acetaminophen (Acetaminophen 650 Mg/20 Ml Udc) 650 mg GT Q6H PRN PRN PRN Reason: Pain Score 1-10/Temp > 100.7 F Albuterol Sulfate (Albuterol Ih 8.5 Gm (Proair) Inhaler (200 Puffs)) 2 puff INHALATION Q4H PRN PRN PRN Reason: SOB &/OR WHEEZING Carbidopa/Levodopa (Carbidopa/Levodopa 25/250 Tablet) 1 tablet GT 0400,1000,1600,2200 [facility]IMA Last Admin: 05/23/20 04:05 Dose: 1 tablet Documented by: Chlorhexidine Gluconate (Chlorhexidine 15 Ml) 15 ml PO BID MIMA Last Admin: 05/22/20 22:42 Dose: 15 ml Documented by: Dexamethasone (Dexamethasone 4 Mg Tablet) 6 mg GT DAILY@0800 [facility] Stop: 05/25/20 08:01 Last Admin: 05/22/20 08:54 Dose: 6 mg Documented by: Dextrose (Dextrose 50%-Water 25 Gm/50 Ml Disp.Syrin) 0 gm IV X1 PRN; Protocol PRN Reason: Hypoglycemia Enoxaparin Sodium (Enoxaparin 30 Mg/0.3 Ml Syringe) 30 mg SC BID [facility] Last Admin: 05/22/20 22:42 Dose: 30 mg Documented by: Famotidine (Famotidine 20 Mg Tablet) 20 mg GT BID [facility] Last Admin: 05/22/20 22:42 Dose: 20 mg Documented by: Furosemide (Furosemide 40 Mg/4 Ml Vial) 40 mg IV BID@1000,1800 [facility] Glucagon (Glucagon 1 Mg/Ml Syringe) 1 mg IM .X1 PRN PRN Reason: Hypoglycemia Sodium Chloride () 250 mls @ 15 mls/hr IV .[id number] PRN PRN Reason: Saline Flush Last Infusion: 05/23/20 06:00 Dose: 15 mls/hr Documented by: Sodium Chloride () 250 mls @ 15 mls/hr IV .[id number] PRN PRN Reason: Additional IVPB Infusion Fentanyl Citrate 1,000 mcg/ (Sodium Chloride) 100 mls @ 2.5 mls/hr CONT INF .Q40H [facility]; Protocol Last Admin: 05/23/20 07:00 Dose: 200 mcg/hr, 20 mls/hr Documented by: Enteral Nutritional Formula (Vital Af 1.2 Rg Liquid) 1,000 mls @ 90 mls/hr GT .Q11H7M [facility] Last Admin: 05/22/20 18:07 Dose: 90 mls/hr Documented by: Ceftriaxone Sodium 2 gm/ (Sodium Chloride) 50 mls @ 100 mls/hr IV Q24 [facility] Last Infusion: 05/22/20 13:49 Dose: Infused Documented by: Dexmedetomidine HCl 400 mcg/ (Sodium Chloride) 100 mls @ 10.063 mls/hr CONT INF .Q9H57M [facility]; Protocol Last Titration: 05/23/20 07:00 Dose: 0.6 mcg/kg/hr, 12.1 mls/hr Documented by: Insulin Human Lispro (Insulin Lispro 100 Unit/Ml Insuln.Pen) 0 unit SC Q6 [facility]; Protocol Last Admin: 05/23/20 05:42 Dose: Not Given Documented by: Ondansetron HCl (Ondansetron 4 Mg/2 Ml Vial) 4 mg IV Q8H PRN PRN PRN Reason: NAUSEA/VOMITING Polyethylene Glycol (Polyethylene Glycol 3350 17 Gm Packet) 17 gm GT DAILY [facility] Last Admin: 05/22/20 12:12 Dose: 17 gm Documented by: Pramipexole Dihydrochloride (Pramipexole Di-Hcl 1 Mg Tablet) 1.5 mg GT TIDCM [facility] Last Admin: 05/22/20 17:11 Dose: 1.5 mg Documented by: Rasagiline (Rasagiline Mesylate 1 Mg Tablet) 1 mg GT DAILY [facility] Last Admin: 05/22/20 08:56 Dose: 1 mg Documented by: Senna/Docusate Sodium (Senna/Docusate Sodium 1 Tablet) 2 tablet GT BID [facility] Last Admin: 05/22/20 22:35 Dose: Not Given Documented by: Sodium Chloride (0.9% Saline Lock 10 Ml Syringe) 10 - 40 ml IV UD PRN PRN Reason: SALINE FLUSH Last Admin: 05/21/20 10:56 Dose: 40 ml Documented by: STROKE Vital Signs/Narrative: Vital Signs Temp Pulse Resp BP Pulse Ox 05/23/20 06:00 91 17 128/65 H 96 05/23/20 05:17 108 H 20 H 97 05/23/20 05:00 114 H 22 H 161/91 H 98 05/23/20 04:00 99.3 F H 81 24 H 139/70 H 98 Medical Necessity - Tobacco Use Smoking Status: Never smoker Assessment/Plan All Active Problems (Last Updated 05/16/20 @ 05:[address] Timothy Crews MD) COVID-19 virus detected (Acute) Pneumonia due to 2019 novel coronavirus (Acute) Patient is a 74-year-old lady who presented with 2-week history of progressive shortness of breath and cough and assessment of acute hypoxic respiratory failure secondary to COVID-19 infection with superimposed new right pneumothorax and gram-negative bacteremia. Admitted to the intensive care unit where patient has since been managed 1. Acute hypoxic respiratory failure ?Secondary to combination of acute COVID-19 pneumonia, right pneumothorax. Patient was intubated and admitted to the intensive care unit. Vent management currently deferred to pulmonary medicine ?patient remains in ICU condition remains critical requiring high FiO2. ?05/23/2020 patient remains on the vent 2. Spontaneous pneumothorax -Patient underwent chest tube placement on 04/29/[address] Sparks ?05/23/2020 x-ray obtained the day prior demonstrated no evidence of pneumothorax 3. Acute COVID-19 pneumonia ?Patient managed with remdesivir and dexamethasone 4. Septic shock/Streptococcus mitis bacteremia, Etiology not clear. Managed with IV fluids per protocol as well as broad-spectrum antibiotic therapy, Initially managed with Zosyn switched to Rocephin -05/23/2020Patient seen still remains on the vent. Blood pressure is relatively low systolic blood pressure in the 80s. Case discussed with pulmonary medicine plans for patient to be initiated on pressors. 5. Parkinson's disease ?Patient is on Sinemet 6. DVT prophylaxis - Lovenox BID Clinical Impression(s) from Imaging Studies Chest X-Ray 05/22/20 10:40 IMPRESSION: Stable examination. There is no evidence of pneumothorax. Electronically Signed: Ar Washington, at 11:23 EST , Service support , Inpatient E&M: [id number] [facility] L[facility]
[2020-05-23] MEDS: Famotidine 20 MG Tablet GT ×2 (08:29→22:00)
[2020-05-23] MEDS: Pramipexole Di-HCl 1 MG Tablet 1.5 MG GT ×3 (08:29→17:50)
[2020-05-23] MEDS: Polyethylene Glycol 3350 17 GM PACKET GT (08:30)
[2020-05-23] MEDS: dexAMETHasone 4 MG Tablet 6 MG GT (08:30)
[2020-05-23] MEDS: 0.9% Saline Lock 10 ML Syringe IV ×2 (08:30→08:35)
[2020-05-23] MEDS: Furosemide 40 MG/4 ML Vial IV ×2 (08:30→22:00)
[2020-05-23] MEDS: Enoxaparin 30 MG/0.3 ML Syringe SC ×2 (08:31→22:00)
[2020-05-23] MEDS: Chlorhexidine 15 ML PO ×2 (08:33→22:14)
[2020-05-23] MEDS: Vital AF 1.2 Cal Liquid 1,000 ML 90 ML GT (10:00)
[2020-05-23] MEDS: Midodrine HCl 5 MG Tablet 10 MG PO ×2 (12:13→22:00)
[2020-05-23 12:46] LABS: Bedside Glucose 175 mg/dL (70-110)
[2020-05-23] MEDS: Dexmedetomidine 400 mcg in 0.9% NS 96 mL 16.1 MCG CONT INF ×2 (13:05→21:57)
[2020-05-23 14:47] LABS: Pathologist Review Reviewed
[2020-05-23 19:06] LABS: Bedside Glucose 166 mg/dL (70-110)
[2020-05-23] MEDS: Senna/Docusate Sodium 1 Tablet 2 TABLET GT (22:00)
[2020-05-24] VITALS (32 sets, daily range): BP systolic 86–174; BP diastolic 42–98; PULSE 55–108; RESP 14–40; TEMP 36.7–37.2; O2SAT 91–98
[2020-05-24] MEDS: Insulin Lispro 100 UNIT/ML INSULN.PEN SC ×4 (00:33→18:53)
[2020-05-24 01:26] LABS: Bedside Glucose 166 mg/dL (70-110)
[2020-05-24] MEDS: Vital AF 1.2 Cal Liquid 1,000 ML 90 ML GT ×3 (03:52→19:07)
[2020-05-24] MEDS: Carbidopa/Levodopa 25/250 Tablet GT ×4 (03:52→21:01)
[2020-05-24] MEDS: Dexmedetomidine 400 mcg in 0.9% NS 96 mL 16.1 MCG CONT INF (03:58)
[2020-05-24 04:39] LABS: Differential Indicated MANUAL DIFF; Hematocrit 38.5 % (37-47); Hemoglobin 12.6 g/dL (12.0-15.0); Mean Corp Hgb Conc 32.7 g/dL (32-36); Mean Corpuscular Hgb 29.7 pg (27.0-32.0); Mean Corpuscular Volume 90.8 fL (81-99); Mean Platelet Vol. 10.8 fl (6.2-12.0); POSITIVE COUNT YES; POSITIVE MORPHOLOGY YES; Platelet Count 261 K/mm3 (150-450); RBC Distribution Width CV 13.1 % (11.6-14.6); RBC Distribution Width SD 43.8 fl (35.1-43.9); Red Blood Count 4.24 M/mm3 (4.2-5.4); White Blood Count 9.8 K/mm3 (4.4-11.0)
[2020-05-24] MEDS: TITRATION PARAMETER CHANGE 1 EACH IV (04:43)
[2020-05-24 04:59] LABS: ALB/GLOB Ratio 0.4 RATIO (0.9-2.4); AST(SGOT) 43 U/L (15-37); Alanine Aminotransfer ALT/SGPT 47 U/L (13-56); Albumin, Serum 1.8 g/dL (3.2-5.0); Alkaline Phosphatase 64 U/L (45-117); Anion Gap 7 (5-15); BUN 26 mg/dL (7-18); BUN/Creat Ratio 39.9 RATIO (10-20); Calcium,Total 8.4 mg/dL (8.5-10.1); Chloride 100 mmol/L (98-107); Creatinine, Serum 0.65 mg/dL (0.55-1.02); EST Glomerular Filtration Rate 94 mL/min (>60); Est Glom Filt Rate - Afr Amer 114 mL/min (>60); Estimated Creatinine Clearance 41.45 ml/min; Globulin 4.5 g/dL (2.2-4.2); Glucose 187 mg/dL (74-106); Potassium 3.3 mmol/L (3.5-5.1); Protein, Total 6.3 g/dL (6.4-8.2); Sodium Level 140 mmol/L (136-145)
[2020-05-24 05:13] LABS: Absolute Neutrophil Count 8.8 X10^3/uL (2.0-7.7); Lymphocyte 7 % (19-41); Metamyelocyte 3 % (0-1); Monocyte 3 % (0-10); Neutrophil-Band 3 % (0-5); Neutrophil-Segmented 87 % (47-70); Total Cells Counted 100 (MANUAL DIFF)
[2020-05-24 05:14] LABS: Absolute Lymphocyte Count 0.69 X10^3/uL (0.83-4.51); Platelet Estimate ADEQUATE (ADEQ); Red Cell Morphology NORM C+C NORMAL (NORM C&C)
[2020-05-24] MEDS: Midodrine HCl 5 MG Tablet 10 MG PO ×3 (05:31→21:01)
--- NOTE | 2020-05-24 06:14 | PN_ITS ---
Subjective: The patient was seen and examined at the bedside this morning. Events from the last 24 hours have been reviewed. The patient is currently afebrile, hemodynamically stable and maintaining appropriate oxygen saturations on assist control mode mechanical ventilation with an FiO2 requirement of 50%. The patient was started on IV Lasix yesterday. Creatinine is stable. However, potassium is low this morning at 3.3. She is currently documented to be overall net +8.5 L for the hospital admission. The patient continues to fail her spontaneous awakening trials. Objective: The patient's most recent lab work, culture data and imaging studies have all been personally reviewed. Coronavirus PCR was positive on May 15. Strep and urine Legionella antigens were negative. The remainder of the patient's infectious work-up has been unrevealing to date. General: - - Remains intubated, sedated and mechanically ventilated. HEENT: Atraumatic, Normocephalic Oral: No Gingival or Mucosal Lesions/ Ulcerations, - - Stable endotracheal and OG tubes. Neck: Supple, No Nodes, Trachea Midline Lungs: Diminished, Tachypneic, - - No air leak from the chest tube noted. Cardiovascular: Regular rate, Regular Rhythm Abdomen: Bowel Sounds Present, Soft, Non Tender Extremities: No clubbing, No cyanosis, Edema Skin: - - No significant change from previous Musculoskeletal: No Muscle Wasting Lymphatic: No Cervical, Supraclavicular, or Inguinal Adenopathy Neurological: - - No focal neurological deficits. Vital Signs Temp Pulse Resp BP Pulse Ox 98.9 F 107 H 29 H 109/50 L 94 05/24/20 04:00 05/24/20 05:40 05/24/20 05:40 05/24/20 05:00 05/24/20 05:40 Oxygen Flow Rate (L/min) 60 Oxygen Delivery Method Mechanical Ventilator Weight: 172 lb 2.896 oz Body Mass Index (BMI) 31.4 Intake and Output for Last 24 Hours 05/22/20 05/23/20 05/24/20 23:59 23:59 23:59 Intake Total 2360.75 / 2768.45 3513.20 / 3546.80 689.16 / 689.16 Output Total 1435 / 1535 1806 / 2781 1125 / 1125 Balance 925.75 / 1233.45 1707.20 / 765.80 -435.84 / -435.84 Labs (Last 48 Hours) 05/19/20 05/22/20 05/22/20 04:20 04:00 17:02 WBC RBC Hgb Hct MCV MCH MCHC RDW Std Deviation RDW Coeff of [place] Plt Count MPV Neut % (Auto) Absolute Neuts (auto) Absolute Lymphs (auto) Total Counted Neutrophils % (Manual) Band Neutrophils % Lymphocytes % (Manual) Monocytes % (Manual) Metamyelocytes % Diff Path Review Reviewed Reviewed Platelet Estimate RBC Morphology Sodium Potassium Chloride Carbon Dioxide Anion Gap BUN Creatinine Estim Creat Clear Calc Est GFR (MDRD) Af Amer Est GFR (MDRD) Non-Af BUN/Creatinine Ratio Glucose Calcium Total Bilirubin AST ALT Alkaline Phosphatase Total Protein Albumin Globulin Albumin/Globulin Ratio POC Glucose 252 H 05/23/20 05/23/20 05/23/20 00:07 04:30 04:30 WBC 10.5 RBC 4.36 Hgb 13.0 Hct 38.8 MCV 89.0 MCH 29.8 MCHC 33.5 RDW Std Deviation 42.2 RDW Coeff of [place] 12.9 Plt Count 221 MPV 10.3 Neut % (Auto) Not Reportable Absolute Neuts (auto) 9.7 H Absolute Lymphs (auto) 0.53 L Total Counted 100 Neutrophils % (Manual) 87 H Band Neutrophils % 5 Lymphocytes % (Manual) 5 L Monocytes % (Manual) 3 Metamyelocytes % 2 H Diff Path Review Reviewed Platelet Estimate ADEQUATE RBC Morphology NORM C+C Sodium 137 Potassium 3.6 Chloride 99 Carbon Dioxide 33.0 H Anion Gap 5 BUN 18 Creatinine 0.50 L Estim Creat Clear Calc 41.45 Est GFR (MDRD) Af Amer 156 Est GFR (MDRD) Non-Af 129 BUN/Creatinine Ratio 36.1 H Glucose 136 H Calcium 8.1 L Total Bilirubin 0.80 AST 51 H ALT 20 Alkaline Phosphatase 63 Total Protein 6.4 Albumin 2.0 L Globulin 4.4 H Albumin/Globulin Ratio 0.5 L POC Glucose 153 H 05/23/20 05/23/20 05/24/20 12:02 18:54 00:32 WBC RBC Hgb Hct MCV MCH MCHC RDW Std Deviation RDW Coeff of [place] Plt Count MPV Neut % (Auto) Absolute Neuts (auto) Absolute Lymphs (auto) Total Counted Neutrophils % (Manual) Band Neutrophils % Lymphocytes % (Manual) Monocytes % (Manual) Metamyelocytes % Diff Path Review Platelet Estimate RBC Morphology Sodium Potassium Chloride Carbon Dioxide Anion Gap BUN Creatinine Estim Creat Clear Calc Est GFR (MDRD) Af Amer Est GFR (MDRD) Non-Af BUN/Creatinine Ratio Glucose Calcium Total Bilirubin AST ALT Alkaline Phosphatase Total Protein Albumin Globulin Albumin/Globulin Ratio POC Glucose 175 H 166 H 166 H 05/24/20 05/24/20 04:00 04:00 WBC 9.8 RBC 4.24 Hgb 12.6 Hct 38.5 MCV 90.8 MCH 29.7 MCHC 32.7 RDW Std Deviation 43.8 RDW Coeff of [place] 13.1 Plt Count 261 MPV 10.8 Neut % (Auto) Not Reportable Absolute Neuts (auto) 8.8 H Absolute Lymphs (auto) 0.69 L Total Counted 100 Neutrophils % (Manual) 87 H Band Neutrophils % 3 Lymphocytes % (Manual) 7 L Monocytes % (Manual) 3 Metamyelocytes % 3 H Diff Path Review May foll Platelet Estimate ADEQUATE RBC Morphology NORM C+C Sodium 140 Potassium 3.3 L Chloride 100 Carbon Dioxide 33.0 H Anion Gap 7 BUN 26 H Creatinine 0.65 Estim Creat Clear Calc 41.45 Est GFR (MDRD) Af Amer 114 Est GFR (MDRD) Non-Af 94 BUN/Creatinine Ratio 39.9 H Glucose 187 H Calcium 8.4 L Total Bilirubin 0.40 AST 43 H ALT 47 Alkaline Phosphatase 64 Total Protein 6.3 L Albumin 1.8 L Globulin 4.5 H Albumin/Globulin Ratio 0.4 L POC Glucose Microbiology 05/18/20 13:00 Blood Culture (Wb) - No Site/Description Given Blood Culture - Final No growth in 5 days. 05/22/20 04:00 Sputum, Tracheal Aspirate Gram Stain - Final 05/22/20 04:00 Sputum, Tracheal Aspirate Respiratory Culture - Preliminary [place] albicans 05/16/20 04:00 Blood Culture (Wb) - Anticubital Left Blood Culture - Preliminary Gram negative sylvia Streptococcus mitis/ oralis Kocuria kristinae Clinical Impression(s) from Imaging Studies Chest X-Ray 05/15/20 23:39 IMPRESSION: Bilateral pneumonia. Electronically Signed: Billy Cook MD at 1:39 EDT , Service support , Chest CTA 05/16/20 02:01 IMPRESSION: No pulmonary embolus or thoracic aortic dissection. Multifocal pneumonia right greater than left, to include viral pneumonia. Electronically Signed: Billy Cook MD at 3:22 EDT , Service support , Chest X-Ray 05/17/20 20:40 IMPRESSION: Mild increase in bilateral infiltrates. at 2221 Reported and signed by: Indigo Gupta MD Electronically Signed: Indigo Gupta MD at 22:20 EDT Tel , Service support , Chest X-Ray 05/17/20 21:12 IMPRESSION: Increasing bilateral infiltrates. Endotracheal tube in place. at 2222 Reported and signed by: Indigo Gupta MD Electronically Signed: Indigo Gupta MD at 22:21 EDT Tel , Service support , KUB X-Ray 05/17/20 21:15 IMPRESSION: Enteric tube tip in the gastric fundus. Bilateral lung opacities right greater than left unchanged. Electronically Signed: Billy Cook MD at 23:14 EDT , Service support , Chest X-Ray 05/19/20 08:20 IMPRESSION: There is a new 2225% right-sided pneumothorax with persistent bilateral infiltrations worse in the right lung. Electronically Signed: Ar Washington, at 12:19 EDT , Service support , Chest X-Ray 05/19/20 10:40 IMPRESSION: Stable bilateral pulmonary infiltrates. A small caliber right-sided chest tube has been placed. No significant stenosis seen. The support tubes are all in good position. Electronically Signed: Ar Washington, at 10:54 EDT , Service support , Chest X-Ray 05/22/20 10:40 IMPRESSION: Stable examination. There is no evidence of pneumothorax. Electronically Signed: Ar Hatfieldnella, at 11:23 EST , Service support , Medical Necessity - Tobacco Use Smoking Status: Never smoker Assessment/Plan All Active Problems (Last Updated 05/16/20 @ 05:[address] Timothy Crews MD) COVID-19 virus detected (Acute) Pneumonia due to 2019 novel coronavirus (Acute) RECOMMENDATIONS: 1. Continue patient on assist control mode mechanical ventilation and wean FiO2 to maintain oxygen saturations at or above 90%. 2. Continue Decadron to complete 10-day treatment course. 3. Continue antimicrobials per infectious diseases recommendations. 4. Continue appropriate DVT and GI prophylaxis. 5. Continue tube feeds as tolerated. 6. Continue gentle diuresis with IV Lasix as tolerated by hemodynamics and renal function. 7. Ongoing family discussion regarding goals of care. IMPRESSIONS: 1. Acute hypoxemic respiratory failure secondary to COVID-19 pneumonia The patient presented to the hospital with Covid-like symptoms of approximately 2 weeks duration. Therefore, she was not felt to be a candidate for either remdesivir or convalescent plasma. Although she was initially stable from an oxygenation standpoint, the patient later decompensated and required intubation. The patient will be continued on assist control mode of mechanical ventilation with plans to wean FiO2 to maintain oxygen saturations at or above 90%. Plan to continue Decadron 6 mg daily x10 days. We will attempt a trial of diuresis today as tolerated by hemodynamics and renal function. The patient continues to fail her spontaneous awakening trials. 2. Gram-negative sepsis Continue antimicrobials per infectious diseases recommendations. 3. Acute right-sided pneumothorax Stable at this time. Plan to continue chest tube to wall suction. 4. Advanced age/Parkinson's disease Complicates care, management, recovery and prognosis. Continue home Parkinson's medication regimen. Continue tube feeds as tolerated. TIME: 33 minutes of critical care time, independent of procedures, was spent addressing the patient's acute hypoxemic respiratory failure secondary to COVID- 19 pneumonia, gram-negative sepsis, acute right-sided pneumothorax, review of all data and collaboration with the care team. ([id number]) [phone] [id number] Critical care first hour
--- NOTE | 2020-05-24 07:19 | PCM.PN.HOSP ---
Patient Problems: Active and Suspected Problems (Last Updated 05/16/20 @ 05:[address] Timothy Crews MD) COVID-19 virus detected (Acute) Pneumonia due to 2019 novel coronavirus (Acute) Reason for Visit: Acute hypoxic respiratory failure COVID-19 pneumonia Subjective: Patient remains in ICU currently on Precedex for sedation. Patient was weaned off Levophed. Patient opens eyes to name however unable to follow any commands. Objective: GENERAL: Patient on the vent HEENT: Atraumatic; EYES; Anicteric, Normal Conjunctiva NECK; supple, normal thyroid, RESPIRATORY: Diminished to auscultation; Chest tube in place CARDIOVASCULAR: Regular S1 S2, GI: soft, normoactive bowel sounds, : No Renal angle tenderness; EXTREMITIES: No edema, no clubbing, MUSCULOSKELETAL: no muscle waisting NEURO: Patient on the vent SKIN: No Rash Vitals/I&O's: Vital Signs Temp Pulse Resp BP Pulse Ox 98.9 F 102 H 23 H 134/55 H 96 05/24/20 04:00 05/24/20 06:00 05/24/20 06:00 05/24/20 06:00 05/24/20 06:00 Oxygen Flow Rate (L/min) 60 Oxygen Delivery Method Mechanical Ventilator Weight: 78.1 kg Body Mass Index (BMI) 31.4 Intake and Output for Last 24 Hours 05/22/20 05/23/20 05/24/20 23:59 23:59 23:59 Intake Total 2360.75 / 2768.45 3513.20 / 3546.80 793.08 / 793.08 Output Total 1435 / 1535 1806 / 2781 1300 / 1300 Balance 925.75 / 1233.45 1707.20 / 765.80 -506.92 / -506.92 Microbiology Past 72 Hours 05/18/20 13:00 Blood Culture (Wb) - No Site/Description Given Blood Culture - Final No growth in 5 days. 05/22/20 04:00 Sputum, Tracheal Aspirate Gram Stain - Final 05/22/20 04:00 Sputum, Tracheal Aspirate Respiratory Culture - Preliminary [place] albicans 05/16/20 04:00 Blood Culture (Wb) - Anticubital Left Blood Culture - Preliminary Gram negative sylvia Streptococcus mitis/ oralis Kocuria kristinae 05/18/20 Unknown Blood Culture (Wb) - No Site/Description Given Blood Culture - Preliminary No growth in 48 hours. 05/15/20 23:56 Blood Culture (Wb) - Right Forearm Blood Culture - Final No growth in 5 days. Laboratory Results 05/23/20 04:30: Diff Path Review Reviewed 05/23/20 12:02: POC Glucose 175 H 05/23/20 18:54: POC Glucose 166 H 05/24/20 00:32: POC Glucose 166 H 05/24/20 04:00: WBC 9.8, RBC 4.24, Hgb 12.6, Hct 38.5, MCV 90.8, MCH 29.7, MCHC 32.7, RDW Std Deviation 43.8, RDW Coeff of [place] 13.1, Plt Count 261, MPV 10.8, Neut % (Auto) Not Reportable, Absolute Neuts (auto) 8.8 H, Absolute Lymphs (auto) 0.69 L, Total Counted 100, Neutrophils % (Manual) 87 H, Band Neutrophils % 3, Lymphocytes % (Manual) 7 L, Monocytes % (Manual) 3, Metamyelocytes % 3 H, Diff Path Review May foll, Platelet Estimate ADEQUATE, RBC Morphology NORM C+C 05/24/20 04:00: Sodium 140, Potassium 3.3 L, Chloride 100, Carbon Dioxide 33.0 H, Anion Gap 7, BUN 26 H, Creatinine 0.65, Estim Creat Clear Calc 41.45, Est GFR (MDRD) Af Amer 114, Est GFR (MDRD) Non-Af 94, BUN/Creatinine Ratio 39.9 H, Glucose 187 H, Calcium 8.4 L, Total Bilirubin 0.40, AST 43 H, ALT 47, Alkaline Phosphatase 64, Total Protein 6.3 L, Albumin 1.8 L, Globulin 4.5 H, Albumin/Globulin Ratio 0.4 L Current Medications Acetaminophen (Acetaminophen 650 Mg/20 Ml Udc) 650 mg GT Q6H PRN PRN PRN Reason: Pain Score 1-10/Temp > 100.7 F Albuterol Sulfate (Albuterol Ih 8.5 Gm (Proair) Inhaler (200 Puffs)) 2 puff INHALATION Q4H PRN PRN PRN Reason: SOB &/OR WHEEZING Carbidopa/Levodopa (Carbidopa/Levodopa 25/250 Tablet) 1 tablet GT 0400,1000,1600,2200 [facility] Last Admin: 05/24/20 03:52 Dose: 1 tablet Documented by: Chlorhexidine Gluconate (Chlorhexidine 15 Ml) 15 ml PO BID [facility] Last Admin: 05/23/20 22:14 Dose: 15 ml Documented by: Dexamethasone (Dexamethasone 4 Mg Tablet) 6 mg GT DAILY@0800 [facility] Stop: 05/25/20 08:01 Last Admin: 05/23/20 08:30 Dose: 6 mg Documented by: Dextrose (Dextrose 50%-Water 25 Gm/50 Ml Disp.Syrin) 0 gm IV X1 PRN; Protocol PRN Reason: Hypoglycemia Enoxaparin Sodium (Enoxaparin 30 Mg/0.3 Ml Syringe) 30 mg SC BID [facility] Last Admin: 05/23/20 22:00 Dose: 30 mg Documented by: Famotidine (Famotidine 20 Mg Tablet) 20 mg GT BID [facility] Last Admin: 05/23/20 22:00 Dose: 20 mg Documented by: Furosemide (Furosemide 40 Mg/4 Ml Vial) 40 mg IV BID@1000,1800 [facility] Last Admin: 05/23/20 22:00 Dose: 40 mg Documented by: Glucagon (Glucagon 1 Mg/Ml Syringe) 1 mg IM .X1 PRN PRN Reason: Hypoglycemia Sodium Chloride () 250 mls @ 15 mls/hr IV .[id number] PRN PRN Reason: Saline Flush Last Admin: 05/23/20 18:00 Dose: 15 mls/hr Documented by: Sodium Chloride () 250 mls @ 15 mls/hr IV .[id number] PRN PRN Reason: Additional IVPB Infusion Fentanyl Citrate 1,000 mcg/ (Sodium Chloride) 100 mls @ 2.5 mls/hr CONT INF .Q40H [facility]; Protocol Last Titration: 05/24/20 06:45 Dose: 125 mcg/hr, 12.5 mls/hr Documented by: Enteral Nutritional Formula (Vital Af 1.2 Rg Liquid) 1,000 mls @ 90 mls/hr GT .[id number] [facility] Last Admin: 05/24/20 03:52 Dose: 90 mls/hr Documented by: Ceftriaxone Sodium 2 gm/ (Sodium Chloride) 50 mls @ 100 mls/hr IV Q24 [facility] Last Infusion: 05/23/20 09:45 Dose: Infused Documented by: Dexmedetomidine HCl 400 mcg/ (Sodium Chloride) 100 mls @ 9.763 mls/hr CONT INF .[id number] [facility]; Protocol Last Titration: 05/24/20 07:00 Dose: 1.5 mcg/kg/hr, 29.3 mls/hr Documented by: Norepinephrine Bitartrate 8 mg (/ Sodium Chloride) 250 mls @ 1.875 mls/hr CONT INF .[id number] [facility]; Protocol Last Titration: 05/23/20 17:19 Dose: 0 mcg/min, 0 mls/hr Documented by: Insulin Human Lispro (Insulin Lispro 100 Unit/Ml Insuln.Pen) 0 unit SC Q6 [facility]; Protocol Last Admin: 05/24/20 05:28 Dose: 1 u Documented by: Midodrine (Midodrine Hcl 5 Mg Tablet) 10 mg PO TID [facility] Last Admin: 05/24/20 05:31 Dose: 10 mg Documented by: Ondansetron HCl (Ondansetron 4 Mg/2 Ml Vial) 4 mg IV Q8H PRN PRN PRN Reason: NAUSEA/VOMITING Polyethylene Glycol (Polyethylene Glycol 3350 17 Gm Packet) 17 gm GT DAILY [facility] Last Admin: 05/23/20 08:30 Dose: 17 gm Documented by: Pramipexole Dihydrochloride (Pramipexole Di-Hcl 1 Mg Tablet) 1.5 mg GT TIDCM [facility] Last Admin: 05/23/20 17:50 Dose: 1.5 mg Documented by: Rasagiline (Rasagiline Mesylate 1 Mg Tablet) 1 mg GT DAILY [facility] Last Admin: 05/23/20 08:32 Dose: 1 mg Documented by: Senna/Docusate Sodium (Senna/Docusate Sodium 1 Tablet) 2 tablet GT BID [facility] Last Admin: 05/23/20 22:00 Dose: 2 tablet Documented by: Sodium Chloride (0.9% Saline Lock 10 Ml Syringe) 10 - 40 ml IV UD PRN PRN Reason: SALINE FLUSH Last Admin: 05/23/20 08:35 Dose: 10 ml Documented by: STROKE Vital Signs/Narrative: Vital Signs Temp Pulse Resp BP Pulse Ox 05/24/20 06:00 102 H 23 H 134/55 H 96 05/24/20 05:40 107 H 29 H 94 05/24/20 05:30 40 H 05/24/20 05:00 108 H 25 H 109/50 L 92 05/24/20 04:00 98.9 F 69 23 H 104/58 L 93 Medical Necessity - Tobacco Use Smoking Status: Never smoker Assessment/Plan All Active Problems (Last Updated 05/16/20 @ 05:[address] Timothy Crews MD) COVID-19 virus detected (Acute) Pneumonia due to 2019 novel coronavirus (Acute) Patient is a 74-year-old lady who presented with 2-week history of progressive shortness of breath and cough and assessment of acute hypoxic respiratory failure secondary to COVID-19 infection with superimposed new right pneumothorax and gram-negative bacteremia. Admitted to the intensive care unit where patient has since been managed 1. Acute hypoxic respiratory failure ?Secondary to combination of acute COVID-19 pneumonia, right pneumothorax. Patient was intubated and admitted to the intensive care unit. Vent management currently deferred to pulmonary medicine ?patient remains in ICU condition remains critical requiring high FiO2. ?05/23/2020 patient remains on the vent -05/24/2020 patient remains in ICU currently on Precedex for sedation. Patient was weaned off Levophed. Patient opens eyes to name however unable to follow any commands. 2. Spontaneous pneumothorax -Patient underwent chest tube placement on 04/29/[address] Sparks ?05/23/2020 x-ray obtained the day prior demonstrated no evidence of pneumothorax 3. Acute COVID-19 pneumonia ?Patient managed with remdesivir and dexamethasone 4. Septic shock/Streptococcus mitis bacteremia, Etiology not clear. Managed with IV fluids per protocol as well as broad-spectrum antibiotic therapy, Initially managed with Zosyn switched to Rocephin -05/23/2020Patient seen still remains on the vent. Blood pressure is relatively low systolic blood pressure in the 80s. Case discussed with pulmonary medicine plans for patient to be initiated on pressors. 5. Parkinson's disease ?Patient is on Sinemet 6. DVT prophylaxis - Lovenox BID Inpatient E&M: [id number] [facility] L2
[2020-05-24 07:30] LABS: Bedside Glucose 170 mg/dL (70-110)
[2020-05-24] MEDS: Polyethylene Glycol 3350 17 GM PACKET GT (08:22)
[2020-05-24] MEDS: Enoxaparin 30 MG/0.3 ML Syringe SC ×2 (08:22→21:00)
[2020-05-24] MEDS: dexAMETHasone 4 MG Tablet 6 MG GT (08:23)
[2020-05-24] MEDS: Furosemide 40 MG/4 ML Vial IV ×2 (08:23→18:52)
[2020-05-24] MEDS: Pramipexole Di-HCl 1 MG Tablet 1.5 MG GT ×3 (08:24→17:00)
[2020-05-24] MEDS: Famotidine 20 MG Tablet GT ×2 (08:24→21:01)
[2020-05-24] MEDS: 0.9% Saline Lock 10 ML Syringe IV (08:24)
[2020-05-24] MEDS: Chlorhexidine 15 ML PO ×2 (08:25→21:01)
[2020-05-24] MEDS: Dexmedetomidine 400 mcg in 0.9% NS 96 mL 29.3 MCG CONT INF (08:59)
[2020-05-24] MEDS: Potassium Chloride IVPB 10 MEQ 100 MEQ IV BOLUS ×4 (12:00→17:25)
[2020-05-24 12:12] LABS: Pathologist Review Reviewed
--- NOTE | 2020-05-24 16:53 | PN.ID_ITS ---
Patient Problems: Active and Suspected Problems (Last Updated 05/16/20 @ 05:[address] Timothy Crews MD) COVID-19 virus detected (Acute) Pneumonia due to 2019 novel coronavirus (Acute) Subjective: On vent, no fever - Physical Exam Vitals/I&O's: Vital Signs Temp Pulse Resp BP Pulse Ox 98.6 F 59 L 16 138/87 H 94 05/24/20 12:00 05/24/20 15:50 05/24/20 15:50 05/24/20 12:00 05/24/20 15:50 Oxygen Flow Rate (L/min) 60 Oxygen Delivery Method Mechanical Ventilator Weight: 78.1 kg Body Mass Index (BMI) 31.4 Intake and Output for Last 24 Hours 05/22/20 05/23/20 05/24/20 23:59 23:59 23:59 Intake Total 2360.75 / 2768.45 3513.20 / 3546.80 2498.23 / 2498.23 Output Total 1435 / 1535 1806 / 2781 2260 / 2260 Balance 925.75 / 1233.45 1707.20 / 765.80 238.23 / 238.23 General: No apparent distress, Non-Cooperative Lungs: Diminished Cardiovascular: Regular rate, Regular Rhythm Abdomen: Soft, Non Tender, Non-Distended Skin: No rashes Microbiology Past 72 Hours 05/22/20 04:00 Sputum, Tracheal Aspirate Gram Stain - Final 05/22/20 04:00 Sputum, Tracheal Aspirate Respiratory Culture - Final [place] albicans 05/18/20 13:00 Blood Culture (Wb) - No Site/Description Given Blood Culture - Final No growth in 5 days. 05/16/20 04:00 Blood Culture (Wb) - Anticubital Left Blood Culture - Preliminary Gram negative sylvia Streptococcus mitis/ oralis Mitchelcuria charles Laboratory Results 05/23/20 18:54: POC Glucose 166 H 05/24/20 00:32: POC Glucose 166 H 05/24/20 04:00: WBC 9.8, RBC 4.24, Hgb 12.6, Hct 38.5, MCV 90.8, MCH 29.7, MCHC 32.7, RDW Std Deviation 43.8, RDW Coeff of [place] 13.1, Plt Count 261, MPV 10.8, Neut % (Auto) Not Reportable, Absolute Neuts (auto) 8.8 H, Absolute Lymphs (auto) 0.69 L, Total Counted 100, Neutrophils % (Manual) 87 H, Band Neutrophils % 3, Lymphocytes % (Manual) 7 L, Monocytes % (Manual) 3, Metamyelocytes % 3 H, Diff Path Review Reviewed, Platelet Estimate ADEQUATE, RBC Morphology NORM C+C 05/24/20 04:00: Sodium 140, Potassium 3.3 L, Chloride 100, Carbon Dioxide 33.0 H , Anion Gap 7, BUN 26 H, Creatinine 0.65, Estim Creat Clear Calc 41.45, Est GFR (MDRD) Af Amer 114, Est GFR (MDRD) Non-Af 94, BUN/Creatinine Ratio 39.9 H, Glucose 187 H, Calcium 8.4 L, Total Bilirubin 0.40, AST 43 H, ALT 47, Alkaline Phosphatase 64, Total Protein 6.3 L, Albumin 1.8 L, Globulin 4.5 H, Albumin/Globulin Ratio 0.4 L 05/24/20 05:26: POC Glucose 170 H Current Medications Acetaminophen (Acetaminophen 650 Mg/20 Ml Udc) 650 mg GT Q6H PRN PRN PRN Reason: Pain Score 1-10/Temp > 100.7 F Albuterol Sulfate (Albuterol Ih 8.5 Gm (Proair) Inhaler (200 Puffs)) 2 puff INHALATION Q4H PRN PRN PRN Reason: SOB &/OR WHEEZING Carbidopa/Levodopa (Carbidopa/Levodopa 25/250 Tablet) 1 tablet GT 0400,1000,1600,2200 [facility] Last Admin: 05/24/20 08:23 Dose: 1 tablet Documented by: Chlorhexidine Gluconate (Chlorhexidine 15 Ml) 15 ml PO BID [facility] Last Admin: 05/24/20 08:25 Dose: 15 ml Documented by: Dexamethasone (Dexamethasone 4 Mg Tablet) 6 mg GT DAILY@0800 [facility] Stop: 05/25/20 08:01 Last Admin: 05/24/20 08:23 Dose: 6 mg Documented by: Dextrose (Dextrose 50%-Water 25 Gm/50 Ml Disp.Syrin) 0 gm IV X1 PRN; Protocol PRN Reason: Hypoglycemia Enoxaparin Sodium (Enoxaparin 30 Mg/0.3 Ml Syringe) 30 mg SC BID [facility] Last Admin: 05/24/20 08:22 Dose: 30 mg Documented by: Famotidine (Famotidine 20 Mg Tablet) 20 mg GT BID [facility] Last Admin: 05/24/20 08:24 Dose: 20 mg Documented by: Furosemide (Furosemide 40 Mg/4 Ml Vial) 40 mg IV BID@1000,1800 [facility] Last Admin: 05/24/20 08:23 Dose: 40 mg Documented by: Glucagon (Glucagon 1 Mg/Ml Syringe) 1 mg IM .X1 PRN PRN Reason: Hypoglycemia Sodium Chloride () 250 mls @ 15 mls/hr IV .[id number] PRN PRN Reason: Saline Flush Last Admin: 05/24/20 10:49 Dose: 15 mls/hr Documented by: Sodium Chloride () 250 mls @ 15 mls/hr IV .[id number] PRN PRN Reason: Additional IVPB Infusion Fentanyl Citrate 1,000 mcg/ (Sodium Chloride) 100 mls @ 2.5 mls/hr CONT INF .Q40H [facility]; Protocol Last Admin: 05/24/20 15:00 Dose: 150 mcg/hr, 15 mls/hr Documented by: Enteral Nutritional Formula (Vital Af 1.2 Rg Liquid) 1,000 mls @ 90 mls/hr GT .[id number] [facility] Last Admin: 05/24/20 08:42 Dose: 90 mls/hr Documented by: Norepinephrine Bitartrate 8 mg (/ Sodium Chloride) 250 mls @ 1.875 mls/hr CONT INF .[id number] [facility]; Protocol Last Titration: 05/23/20 17:19 Dose: 0 mcg/min, 0 mls/hr Documented by: Dexmedetomidine HCl 1,000 mcg/ (Sodium Chloride) 250 mls @ 9.763 mls/hr CONT INF .[id number] [facility]; Protocol Last Titration: 05/24/20 15:00 Dose: 1.5 mcg/kg/hr, 29.3 mls/hr Documented by: Insulin Human Lispro (Insulin Lispro 100 Unit/Ml Insuln.Pen) 0 unit SC Q6 [facility]; Protocol Last Admin: 05/24/20 12:27 Dose: 4 u Documented by: Midodrine (Midodrine Hcl 5 Mg Tablet) 10 mg PO TID [facility] Last Admin: 05/24/20 12:18 Dose: 10 mg Documented by: Ondansetron HCl (Ondansetron 4 Mg/2 Ml Vial) 4 mg IV Q8H PRN PRN PRN Reason: NAUSEA/VOMITING Polyethylene Glycol (Polyethylene Glycol 3350 17 Gm Packet) 17 gm GT DAILY [facility] Last Admin: 05/24/20 08:22 Dose: 17 gm Documented by: Pramipexole Dihydrochloride (Pramipexole Di-Hcl 1 Mg Tablet) 1.5 mg GT TIDCM [facility] Last Admin: 05/24/20 12:29 Dose: 1.5 mg Documented by: Rasagiline (Rasagiline Mesylate 1 Mg Tablet) 1 mg GT DAILY [facility] Last Admin: 05/24/20 08:25 Dose: 1 mg Documented by: Senna/Docusate Sodium (Senna/Docusate Sodium 1 Tablet) 2 tablet GT BID [facility] Last Admin: 05/24/20 10:45 Dose: Not Given Documented by: Sodium Chloride (0.9% Saline Lock 10 Ml Syringe) 10 - 40 ml IV UD PRN PRN Reason: SALINE FLUSH Last Admin: 05/24/20 08:24 Dose: 10 ml Documented by: Medical Necessity - Tobacco Use Smoking Status: Never smoker Route of nutrition/ use of supplements: [] Nutritional Intake: [] IV Site: [] Allen Catheter: [] - Assessment/Plan Antibiotics: [] Assessment/Plan: [] Active and Suspected Problems (Last Updated 05/16/20 @ 05:[address] Timothy Crews MD) COVID-19 virus detected (Acute) Pneumonia due to 2019 novel coronavirus (Acute) covid with hypoxia - Cont dex. PCT was 0.2, relatively asymptomatic. CT showed no PE, mild elevated d-dimer. UAg neg. Remains on vent. Now with pneumothorax. On 45% O2 this afternoon, much improved. Kokuria and strep bacteremia - narrowed to ceftriaxone. Completed course today. Will follow
[2020-05-24 19:10] LABS: Bedside Glucose 184 mg/dL (70-110)
[2020-05-24 19:10] LABS: Bedside Glucose 274 mg/dL (70-110)
[2020-05-24] MEDS: Senna/Docusate Sodium 1 Tablet 2 TABLET GT (21:01)
[2020-05-25] VITALS (16 sets, daily range): BP systolic 90–187; BP diastolic 46–116; PULSE 59–110; RESP 14–40; TEMP 36.4–37.7; O2SAT 70–97
[2020-05-25 01:06] LABS: Bedside Glucose 134 mg/dL (70-110)
[2020-05-25] MEDS: Carbidopa/Levodopa 25/250 Tablet GT (05:00)
[2020-05-25] MEDS: Insulin Lispro 100 UNIT/ML INSULN.PEN SC (06:09)
[2020-05-25] MEDS: Midodrine HCl 5 MG Tablet 10 MG PO (06:09)
--- NOTE | 2020-05-25 06:23 | PN_ITS ---
Subjective: The patient was seen and examined at the bedside this morning. Events from the last 24 hours have been reviewed. The patient is currently afebrile, hemodynamically stable and maintaining appropriate oxygen saturations on assist control mode of mechanical ventilation with an FiO2 requirement of 45%. The patient continues to fail her spontaneous awakening trials in the morning. The patient is currently documented to be overall net +10.5 L for the hospital admission. She remains on twice daily IV Lasix. The patient appears to be quite uncomfortable and in distress this morning. Therefore, orders were placed to transition the patient from Precedex to propofol. In addition, I did advise the family to come in to see the patient in order to formulate a plan for goals of care. Objective: The patient's most recent lab work, culture data and imaging studies have all been personally reviewed. Coronavirus PCR was positive on May 15. Strep and urine Legionella antigens were negative. The remainder of the patient's infectious work-up has been unrevealing to date. General: - - Remains intubated, sedated and mechanically ventilated. The patient appears quite uncomfortable and restless this morning. Respirations appear irregular and agonal. HEENT: Atraumatic, Normocephalic Oral: No Gingival or Mucosal Lesions/ Ulcerations, - - Endotracheal and OG tubes remain in place. Neck: Supple, No Nodes, Trachea Midline Lungs: Diminished, Tachypneic, - - Chest tube remains in place without discernible air leak. Cardiovascular: Normal S1, Normal S2, Tachycardic Abdomen: Bowel Sounds Present, Soft, Non Tender Extremities: No clubbing, No cyanosis, Edema Skin: - - No significant change from previous Musculoskeletal: No Muscle Wasting Neurological: - - No focal neurological deficits. Currently sedated. Psych/Mental Status: Restless Vital Signs Temp Pulse Resp BP Pulse Ox 98.2 F 65 26 H 112/64 92 05/25/20 00:00 05/25/20 05:00 05/25/20 05:00 05/25/20 05:00 05/25/20 05:00 Oxygen Flow Rate (L/min) 60 Oxygen Delivery Method Mechanical Ventilator Weight: 173 lb 11.588 oz Body Mass Index (BMI) 31.4 Intake and Output for Last 24 Hours 05/23/20 05/24/20 05/25/20 23:59 23:59 23:59 Intake Total 3513.20 / 3546.80 3753.42 / 4252.72 747.16 / 747.16 Output Total 1806 / 2781 2735 / 2885 450 / 450 Balance 1707.20 / 765.80 1018.42 / 1367.72 297.16 / 297.16 Labs (Last 48 Hours) 05/23/20 05/23/20 05/23/20 04:30 12:02 18:54 WBC RBC Hgb Hct MCV MCH MCHC RDW Std Deviation RDW Coeff of [place] Plt Count MPV Neut % (Auto) Absolute Neuts (auto) Absolute Lymphs (auto) Total Counted Neutrophils % (Manual) Band Neutrophils % Lymphocytes % (Manual) Monocytes % (Manual) Metamyelocytes % Diff Path Review Reviewed Platelet Estimate RBC Morphology Sodium Potassium Chloride Carbon Dioxide Anion Gap BUN Creatinine Estim Creat Clear Calc Est GFR (MDRD) Af Amer Est GFR (MDRD) Non-Af BUN/Creatinine Ratio Glucose Calcium Total Bilirubin AST ALT Alkaline Phosphatase Total Protein Albumin Globulin Albumin/Globulin Ratio POC Glucose 175 H 166 H 05/24/20 05/24/20 05/24/20 00:32 04:00 04:00 WBC 9.8 RBC 4.24 Hgb 12.6 Hct 38.5 MCV 90.8 MCH 29.7 MCHC 32.7 RDW Std Deviation 43.8 RDW Coeff of [place] 13.1 Plt Count 261 MPV 10.8 Neut % (Auto) Not Reportable Absolute Neuts (auto) 8.8 H Absolute Lymphs (auto) 0.69 L Total Counted 100 Neutrophils % (Manual) 87 H Band Neutrophils % 3 Lymphocytes % (Manual) 7 L Monocytes % (Manual) 3 Metamyelocytes % 3 H Diff Path Review Reviewed Platelet Estimate ADEQUATE RBC Morphology NORM C+C Sodium 140 Potassium 3.3 L Chloride 100 Carbon Dioxide 33.0 H Anion Gap 7 BUN 26 H Creatinine 0.65 Estim Creat Clear Calc 41.45 Est GFR (MDRD) Af Amer 114 Est GFR (MDRD) Non-Af 94 BUN/Creatinine Ratio 39.9 H Glucose 187 H Calcium 8.4 L Total Bilirubin 0.40 AST 43 H ALT 47 Alkaline Phosphatase 64 Total Protein 6.3 L Albumin 1.8 L Globulin 4.5 H Albumin/Globulin Ratio 0.4 L POC Glucose 166 H 05/24/20 05/24/2005/24/20 05:26 12:27 18:49 WBC RBC Hgb Hct MCV MCH MCHC RDW Std Deviation RDW Coeff of [place] Plt Count MPV Neut % (Auto) Absolute Neuts (auto) Absolute Lymphs (auto) Total Counted Neutrophils % (Manual) Band Neutrophils % Lymphocytes % (Manual) Monocytes % (Manual) Metamyelocytes % Diff Path Review Platelet Estimate RBC Morphology Sodium Potassium Chloride Carbon Dioxide Anion Gap BUN Creatinine Estim Creat Clear Calc Est GFR (MDRD) Af Amer Est GFR (MDRD) Non-Af BUN/Creatinine Ratio Glucose Calcium Total Bilirubin AST ALT Alkaline Phosphatase Total Protein Albumin Globulin Albumin/Globulin Ratio POC Glucose 170 H 274 H 184 H 05/25/20 00:36 WBC RBC Hgb Hct MCV MCH MCHC RDW Std Deviation RDW Coeff of [place] Plt Count MPV Neut % (Auto) Absolute Neuts (auto) Absolute Lymphs (auto) Total Counted Neutrophils % (Manual) Band Neutrophils % Lymphocytes % (Manual) Monocytes % (Manual) Metamyelocytes % Diff Path Review Platelet Estimate RBC Morphology Sodium Potassium Chloride Carbon Dioxide Anion Gap BUN Creatinine Estim Creat Clear Calc Est GFR (MDRD) Af Amer Est GFR (MDRD) Non-Af BUN/Creatinine Ratio Glucose Calcium Total Bilirubin AST ALT Alkaline Phosphatase Total Protein Albumin Globulin Albumin/Globulin Ratio POC Glucose 134 H Microbiology 05/22/20 04:00 Sputum, Tracheal Aspirate Gram Stain - Final 05/22/20 04:00 Sputum, Tracheal Aspirate Respiratory Culture - Final [place] albicans 05/18/20 13:00 Blood Culture (Wb) - No Site/Description Given Blood Culture - Final No growth in 5 days. 05/16/20 04:00 Blood Culture (Wb) - Anticubital Left Blood Culture - Preliminary Gram negative sylvia Streptococcus mitis/ oralis Kocuria kristinae Clinical Impression(s) from Imaging Studies Chest X-Ray 05/15/20 23:39 IMPRESSION: Bilateral pneumonia. Electronically Signed: Billy Cook MD at 1:39 EDT , Service support , Chest CTA 05/16/20 02:01 IMPRESSION: No pulmonary embolus or thoracic aortic dissection. Multifocal pneumonia right greater than left, to include viral pneumonia. Electronically Signed: Billy Cook MD at 3:22 EDT , Service support , Chest X-Ray 05/17/20 20:40 IMPRESSION: Mild increase in bilateral infiltrates. at 2221 Reported and signed by: Indigo Gupta MD Electronically Signed: Indigo Gupta MD at 22:20 EDT Tel , Service support , Chest X-Ray 05/17/20 21:12 IMPRESSION: Increasing bilateral infiltrates. Endotracheal tube in place. at 2222 Reported and signed by: Indigo Gupta MD Electronically Signed: Indigo Gupta MD at 22:21 EDT Tel , Service support , KUB X-Ray 05/17/20 21:15 IMPRESSION: Enteric tube tip in the gastric fundus. Bilateral lung opacities right greater than left unchanged. Electronically Signed: Billy Cook MD at 23:14 EDT , Service support , Chest X-Ray 05/19/20 08:20 IMPRESSION: There is a new 2225% right-sided pneumothorax with persistent bilateral infiltrations worse in the right lung. Electronically Signed: Ar Washington at 12:19 EDT , Service support , Chest X-Ray 05/19/20 10:40 IMPRESSION: Stable bilateral pulmonary infiltrates. A small caliber right-sided chest tube has been placed. No significant stenosis seen. The support tubes are all in good position. Electronically Signed: Ar Washington, at 10:54 EDT , Service support , Chest X-Ray 05/22/20 10:40 IMPRESSION: Stable examination. There is no evidence of pneumothorax. Electronically Signed: Ar Washington, at 11:23 EST , Service support , Medical Necessity - Tobacco Use Smoking Status: Never smoker Assessment/Plan All Active Problems (Last Updated 05/16/20 @ 05:[address] Timothy Crews MD) COVID-19 virus detected (Acute) Pneumonia due to 2019 novel coronavirus (Acute) RECOMMENDATIONS: 1. Continue patient on assist control mode mechanical ventilation and wean FiO2 to maintain oxygen saturations at or above 90%. 2. Continue Decadron to complete 10-day treatment course. 3. Continue antimicrobials per infectious diseases recommendations. 4. Continue appropriate DVT and GI prophylaxis. 5. Continue tube feeds as tolerated. 6. Continue gentle diuresis with IV Lasix as tolerated by hemodynamics and renal function. 7. Ongoing family discussion regarding goals of care. IMPRESSIONS: 1. Acute hypoxemic respiratory failure secondary to COVID-19 pneumonia The patient presented to the hospital with Covid-like symptoms of approximately 2 weeks duration. Therefore, she was not felt to be a candidate for either remdesivir or convalescent plasma. Although she was initially stable from an oxygenation standpoint, the patient later decompensated and required intubation. The patient will be continued on assist control mode of mechanical ventilation with plans to wean FiO2 to maintain oxygen saturations at or above 90%. Plan to continue Decadron 6 mg daily x10 days. The patient continues to fail her spontaneous awakening trials. 2. Gram-negative sepsis Continue antimicrobials per infectious diseases recommendations. 3. Acute right-sided pneumothorax Stable at this time. Plan to continue chest tube to wall suction. 4. Advanced age/Parkinson's disease Complicates care, management, recovery and prognosis. Continue home Parkinson's medication regimen. Continue tube feeds as tolerated. UPDATE: I personally met with the patient's family this morning to discuss the patient's clinical state and overall goals of care. Given her continued clinical decompen sation, the patient's family would now like to pursue comfort care measures with plans for palliative withdrawal of life support. CODE STATUS has been updated to DNR CC per request. Orders for palliative medications have been placed. TIME: 40 minutes of critical care time, independent of procedures, was spent addressing the patient's acute hypoxemic respiratory failure secondary to COVID- 19 pneumonia, gram-negative sepsis, acute right-sided pneumothorax, review of all data and collaboration with the care team. ([id number]) [id number] Critical care first hour
[2020-05-25] MEDS: TITRATION PARAMETER CHANGE 1 EACH IV (06:39)
--- NOTE | 2020-05-25 07:20 | PCM.PN.HOSP ---
Patient Problems: Active and Suspected Problems (Last Updated 05/16/20 @ 05:[address] Timothy Crews MD) COVID-19 virus detected (Acute) Pneumonia due to 2019 novel coronavirus (Acute) Reason for Visit: Acute hypoxic respiratory failure. Subjective: Patient remains on the vent. Clinical condition continues to deteriorate. Discussions held with family with plans for terminal extubation this morning. Objective: GENERAL: Patient on the vent HEENT: Atraumatic; EYES; Anicteric, Normal Conjunctiva NECK; supple, normal thyroid, RESPIRATORY: Diminished to auscultation; Chest tube in place CARDIOVASCULAR: Regular S1 S2, GI: soft, normoactive bowel sounds, : No Renal angle tenderness; EXTREMITIES: No edema, no clubbing, MUSCULOSKELETAL: no muscle waisting NEURO: Patient on the vent SKIN: No Rash Vitals/I&O's: Vital Signs Temp Pulse Resp BP Pulse Ox 98.2 F 96 35 H 90/53 L 93 05/25/20 00:00 05/25/20 07:11 05/25/20 07:11 05/25/20 06:00 05/25/20 07:11 Oxygen Flow Rate (L/min) 60 Oxygen Delivery Method Mechanical Ventilator Weight: 78.8 kg Body Mass Index (BMI) 31.4 Intake and Output for Last 24 Hours 05/23/20 05/24/20 05/25/20 23:59 23:59 23:59 Intake Total 3513.20 / 3546.80 3753.42 / 4252.72 1004.09 / 1004.09 Output Total 1806 / 2781 2735 / 2885 450 / 450 Balance 1707.20 / 765.80 1018.42 / 1367.72 554.09 / 554.09 Microbiology Past 72 Hours 05/22/20 04:00 Sputum, Tracheal Aspirate Gram Stain - Final 05/22/20 04:00 Sputum, Tracheal Aspirate Respiratory Culture - Final Oneida albicans 05/18/20 13:00 Blood Culture (Wb) - No Site/Description Given Blood Culture - Final No growth in 5 days. 05/16/20 04:00 Blood Culture (Wb) - Anticubital Left Blood Culture - Preliminary Gram negative sylvia Streptococcus mitis/ oralis Kocuria kristinae Laboratory Results 05/24/20 04:00: Diff Path Review Reviewed 05/24/20 05:26: POC Glucose 170 H 05/24/20 12:27: POC Glucose 274 H 05/24/20 18:49: POC Glucose 184 H 05/25/20 00:36: POC Glucose 134 H Current Medications Acetaminophen (Acetaminophen 650 Mg/20 Ml Udc) 650 mg GT Q6H PRN PRN PRN Reason: Pain Score 1-10/Temp > 100.7 F Albuterol Sulfate (Albuterol Ih 8.5 Gm (Proair) Inhaler (200 Puffs)) 2 puff INHALATION Q4H PRN PRN PRN Reason: SOB &/OR WHEEZING Carbidopa/Levodopa (Carbidopa/Levodopa 25/250 Tablet) 1 tablet GT 0400,1000,1600,2200 [facility] Last Admin: 05/25/20 05:00 Dose: 1 tablet Documented by: Chlorhexidine Gluconate (Chlorhexidine 15 Ml) 15 ml PO BID [facility] Last Admin: 05/24/20 21:01 Dose: 15 ml Documented by: Dexamethasone (Dexamethasone 4 Mg Tablet) 6 mg GT DAILY@0800 [facility] Stop: 05/25/20 08:01 Last Admin: 05/24/20 08:23 Dose: 6 mg Documented by: Dextrose (Dextrose 50%-Water 25 Gm/50 Ml Disp.Syrin) 0 gm IV X1 PRN; Protocol PRN Reason: Hypoglycemia Enoxaparin Sodium (Enoxaparin 30 Mg/0.3 Ml Syringe) 30 mg SC BID [facility] Last Admin: 05/24/20 21:00 Dose: 30 mg Documented by: Famotidine (Famotidine 20 Mg Tablet) 20 mg GT BID [facility] Last Admin: 05/24/20 21:01 Dose: 20 mg Documented by: Furosemide (Furosemide 40 Mg/4 Ml Vial) 40 mg IV BID@1000,1800 [facility] Last Admin: 05/24/20 18:52 Dose: 40 mg Documented by: Glucagon (Glucagon 1 Mg/Ml Syringe) 1 mg IM .X1 PRN PRN Reason: Hypoglycemia Sodium Chloride () 250 mls @ 15 mls/hr IV .[id number] PRN PRN Reason: Saline Flush Last Infusion: 05/25/20 03:30 Dose: Infused Documented by: Sodium Chloride () 250 mls @ 15 mls/hr IV .[id number] PRN PRN Reason: Additional IVPB Infusion Fentanyl Citrate 1,000 mcg/ (Sodium Chloride) 100 mls @ 2.5 mls/hr CONT INF .Q40H [facility]; Protocol Last Titration: 05/25/20 06:30 Dose: 100 mcg/hr, 10 mls/hr Documented by: Enteral Nutritional Formula (Vital Af 1.2 Rg Liquid) 1,000 mls @ 90 mls/hr GT .[id number] [facility] Last Admin: 05/24/20 19:07 Dose: 90 mls/hr Documented by: Norepinephrine Bitartrate 8 mg (/ Sodium Chloride) 250 mls @ 1.875 mls/hr CONT INF .[id number] [facility]; Protocol Last Titration: 05/24/20 20:44 Dose: Infused Documented by: Dexmedetomidine HCl 1,000 mcg/ (Sodium Chloride) 250 mls @ 9.85 mls/hr CONT INF .[id number] [facility]; Protocol Last Titration: 05/25/20 06:00 Dose: 1.5 mcg/kg/hr, 29.6 mls/hr Documented by: Insulin Human Lispro (Insulin Lispro 100 Unit/Ml Insuln.Pen) 0 unit SC Q6 [facility]; Protocol Last Admin: 05/25/20 06:09 Dose: 1 u Documented by: Midodrine (Midodrine Hcl 5 Mg Tablet) 10 mg PO TID [facility] Last Admin: 05/25/20 06:09 Dose: 10 mg Documented by: Ondansetron HCl (Ondansetron 4 Mg/2 Ml Vial) 4 mg IV Q8H PRN PRN PRN Reason: NAUSEA/VOMITING Polyethylene Glycol (Polyethylene Glycol 3350 17 Gm Packet) 17 gm GT DAILY [facility] Last Admin: 05/24/20 08:22 Dose: 17 gm Documented by: Pramipexole Dihydrochloride (Pramipexole Di-Hcl 1 Mg Tablet) 1.5 mg GT TIDCM [facility] Last Admin: 05/24/20 17:00 Dose: 1.5 mg Documented by: Rasagiline (Rasagiline Mesylate 1 Mg Tablet) 1 mg GT DAILY [facility] Last Admin: 05/24/20 08:25 Dose: 1 mg Documented by: Senna/Docusate Sodium (Senna/Docusate Sodium 1 Tablet) 2 tablet GT BID [facility] Last Admin: 05/24/20 21:01 Dose: 2 tablet Documented by: Sodium Chloride (0.9% Saline Lock 10 Ml Syringe) 10 - 40 ml IV UD PRN PRN Reason: SALINE FLUSH Last Admin: 05/24/20 08:24 Dose: 10 ml Documented by: STROKE Vital Signs/Narrative: Vital Signs Pulse Resp BP Pulse Ox 05/25/20 07:11 96 35 H 93 05/25/20 06:00 59 L 18 90/53 L 93 05/25/20 05:00 65 26 H 112/64 92 05/25/20 04:35 66 23 H 91 05/25/20 04:30 40 H 05/25/20 04:00 59 L 17 94/57 L 93 Medical Necessity - Tobacco Use Smoking Status: Never smoker Assessment/Plan All Active Problems (Last Updated 05/16/20 @ 05:[address] Timothy Crews MD) COVID-19 virus detected (Acute) Pneumonia due to 2019 novel coronavirus (Acute) Patient is a 74-year-old lady who presented with 2-week history of progressive shortness of breath and cough and assessment of acute hypoxic respiratory failure secondary to COVID-19 infection with superimposed new right pneumothorax and gram-negative bacteremia. Admitted to the intensive care unit where patient has since been managed 1. Acute hypoxic respiratory failure ?Secondary to combination of acute COVID-19 pneumonia, right pneumothorax. Patient was intubated and admitted to the intensive care unit. Vent management currently deferred to pulmonary medicine ?patient remains in ICU condition remains critical requiring high FiO2. ?05/23/2020 patient remains on the vent -05/24/2020 patient remains in ICU currently on Precedex for sedation. Patient was weaned off Levophed. Patient opens eyes to name however unable to follow any commands. -05/25/2020 patient remains on the vent. Clinical condition continues to deteriorate. Discussions held with family, they did agree with plans for terminal extubation this morning. 2. Spontaneous pneumothorax -Patient underwent chest tube placement on 04/29/[address] Sparks ?05/23/2020 x-ray obtained the day prior demonstrated no evidence of pneumothorax 3. Acute COVID-19 pneumonia ?Patient managed with remdesivir and dexamethasone 4. Septic shock/Streptococcus mitis bacteremia, Etiology not clear. Managed with IV fluids per protocol as well as broad-spectrum antibiotic therapy, Initially managed with Zosyn switched to Rocephin -05/23/2020Patient seen still remains on the vent. Blood pressure is relatively low systolic blood pressure in the 80s. Case discussed with pulmonary medicine plans for patient to be initiated on pressors. 5. Parkinson's disease ?Patient is on Sinemet 6. DVT prophylaxis - Lovenox BID Inpatient E&M: 91086 Subs Hosp L2
[2020-05-25] MEDS: Propofol 10MG/Ml 1,000 MG/100 ML Bottle 4.7 MG CONT INF (08:00)
--- NOTE | 2020-05-25 09:38 | NURSING ---
D/t severity of illness and current physical agitation/sedation problems, pt family called to come in to see pt. Pt's and daughter at bedside currently reciting scripture. Emotional support provided. Will monitor.
[2020-05-25 09:50] LABS: Bedside Glucose 189 mg/dL (70-110)
[2020-05-25] MEDS: LORazepam 2 MG/ML Syringe 1 MG IV ×4 (10:13→16:36)
[2020-05-25] MEDS: Morphine 4 MG/ML Syringe IV ×6 (10:13→16:30)
[2020-05-25 10:46] LABS: Anion Gap 5 (5-15); BUN 29 mg/dL (7-18); BUN/Creat Ratio 42.9 RATIO (10-20); CPK Total, Creatine Kinase 17 U/L (26-192); Calcium,Total 8.4 mg/dL (8.5-10.1); Chloride 107 mmol/L (98-107); Creatinine, Serum 0.68 mg/dL (0.55-1.02); EST Glomerular Filtration Rate 91 mL/min (>60); Est Glom Filt Rate - Afr Amer 110 mL/min (>60); Estimated Creatinine Clearance 41.45 ml/min; Glucose 175 mg/dL (74-106); Sodium Level 144 mmol/L (136-145); Triglycerides 206 mg/dL
[2020-05-25] MEDS: 0.9% Saline Lock 10 ML Syringe IV (11:52)
--- NOTE | 2020-05-25 13:07 | NURSING ---
Spoke with pt's and gave update; asked if he would be ok with moving the pt to the hospice IPU. He gave this RN permission to get the Hospice process started. ANABELL Druan, notified.
--- NOTE | 2020-05-25 13:35 | CASEMGMT ---
ANABELL received a call from [employer] requesting a referral be made to Hospice. Possibly the inpatient unit. ANABELL called patient's , Wayne and confirmed this is what they would like for patient. ANABELL let him know someone from Hospice will be calling him. ANABELL then called [facility] and spoke with Mitzi regarding referral. SW also faxed information. Await return call. Renee GAMING MSW
--- NOTE | 2020-05-25 14:24 | CHAPLAIN ---
Type of Pastoral Visit ___ Initial Visit ___ Follow-up Visit ___ On-call Visit ___ General Patient Visit ___ Spiritual Assessment ___ Family Conference ___ Bereavement ___ Rapid Response ___ Code Blue _x__ Other (describe below) Pastoral Care Referral From ___ Patient ___ Family _x__ Nurse ___ Physician ___ Pilot Manager ___ Agent Telegrapher ___ Other (describe below) Sacrament/Intervention ___ Active listening ___ Anointing ___ Advent ___ Bereavement ___ Communion ___ Christine exploration ___ ___ Life review _x__ Prayer ___ Reconciliation ___ Sacrament of Sick ___ Supportive presence ___ Wedding ___ Other (describe below) Pastoral Comments patient was extubated earlier today and family has already left the hospital; RN notified this director of curriculum during rounds of situation; prayer at doorway given for patient and family; pt is expected to be moved to hospice ICU
--- NOTE | 2020-05-25 15:02 | DCINST_ITS ---
- Discharge Diagnoses Current Active Problems: Current Active and Chronic Problems (Last Updated 05/16/20 @ 05:[address] Timothy Crews MD) COVID-19 virus detected (Acute) Pneumonia due to 2019 novel coronavirus (Acute) You will use the following diet at home:: No restrictions Your food should be the consistency of: Regular Allergies/Adverse Reactions: Allergies No Known Allergies Allergy (Verified 05/16/20 05:46) Primary Care Physician: Wale Parker MD [Primary Care Provider] - Test Results: Test results from this visit will be discussed in further detail at your follow- up appointment, if applicable. Proposed Discharge Date: 05/25/20
--- NOTE | 2020-05-25 15:04 | DS.PCM_ITS ---
Discharge Date and Diagnosis - Problem List Patient Problems: Active and Suspected Problems (Last Updated 05/16/20 @ 05:[address] Timothy Crews MD) COVID-19 virus detected (Acute) Pneumonia due to 2019 novel coronavirus (Acute) Date of Admission: 05/16/20 Date of Discharge: 05/25/20 - Primary Discharge Diagnosis Acute Problems: Active Problems (Last Updated 05/16/20 @ 05:[address] Timothy Crews MD) COVID-19 virus detected (Acute) Pneumonia due to 2019 novel coronavirus (Acute) Hospital Course and Treatment Summary of Care Provided: Patient is a 74-year-old lady who presented with 2-week history of progressive shortness of breath and cough and assessment of acute hypoxic respiratory failure secondary to COVID-19 infection with superimposed new right pneumothorax and gram-negative bacteremia. Admitted to the intensive care unit where patient has since been managed 1. Acute hypoxic respiratory failure ?Secondary to combination of acute COVID-19 pneumonia, right pneumothorax. Patient was intubated and admitted to the intensive care unit. Vent management currently deferred to pulmonary medicine ?patient remains in ICU condition remains critical requiring high FiO2. ?05/23/2020 patient remains on the vent -05/24/2020 patient remains in ICU currently on Precedex for sedation. Patient was weaned off Levophed. Patient opens eyes to name however unable to follow any commands. -05/25/2020 patient remains on the vent. Clinical condition continues to deteriorate. Discussions held with family, they did agree with plans for terminal extubation this morning. - family did agree with terminal weaning. Patient was transferred to hospice in a facility. 2. Spontaneous pneumothorax -Patient underwent chest tube placement on 04/29/[address] Sparks ?05/23/2020 x-ray obtained the day prior demonstrated no evidence of pneumothorax -05/25/2020 chest tube removed prior to patient being transferred to hospice in the facility 3. Acute COVID-19 pneumonia ?Patient managed with remdesivir and dexamethasone 4. Septic shock/Streptococcus mitis bacteremia, Etiology not clear. Managed with IV fluids per protocol as well as broad- spectrum antibiotic therapy, Initially managed with Zosyn switched to Rocephin -05/23/2020Patient seen still remains on the vent. Blood pressure is relatively low systolic blood pressure in the 80s. Case discussed with pulmonary medicine plans for patient to be initiated on pressors. 5. Parkinson's disease ?Patient is on Sinemet 6. DVT prophylaxis - Lovenox BID Patient Problems: Active and Suspected Problems (Last Updated 05/16/20 @ 05:[address] Timothy Crews MD) COVID-19 virus detected (Acute) Pneumonia due to 2019 novel coronavirus (Acute) - Physical Exam Vitals/I&O's: Vital Signs Temp Pulse Resp BP Pulse Ox 99.8 F H 65 19 H 91/50 L 72 05/25/20 08:00 05/25/20 11:07 05/25/20 10:00 05/25/20 10:00 05/25/20 11:07 Oxygen Flow Rate (L/min) 60 Oxygen Delivery Method Room Air Weight: 78.8 kg Body Mass Index (BMI) 31.4 Intake and Output for Last 24 Hours 05/23/20 05/24/20 05/25/20 23:59 23:59 23:59 Intake Total 3513.20 / 3546.80 3753.42 / 4252.72 1140.44 / 1140.44 Output Total 1806 / 2781 2735 / 2885 600 / 600 Balance 1707.20 / 765.80 1018.42 / 1367.72 540.44 / 540.44 General: - - Unresponsive Lungs: Diminished Cardiovascular: Regular rate, Regular Rhythm Microbiology Past 72 Hours 05/22/20 04:00 Sputum, Tracheal Aspirate Gram Stain - Final 05/22/20 04:00 Sputum, Tracheal Aspirate Respiratory Culture - Final Oneida albicans 05/18/20 13:00 Blood Culture (Wb) - No Site/Description Given Blood Culture - Final No growth in 5 days. 05/16/20 04:00 Blood Culture (Wb) - Anticubital Left Blood Culture - Preliminary Gram negative sylvia Streptococcus mitis/ oralis Mitchelcuria abnerae Laboratory Results 05/24/20 12:27: POC Glucose 274 H 05/24/20 18:49: POC Glucose 184 H 05/25/20 00:36: POC Glucose 134 H 05/25/20 06:07: POC Glucose 189 H 05/25/20 07:05: Sodium 144, Potassium 4.0, Chloride 107, Carbon Dioxide 32.0, Anion Gap 5, BUN 29 H, Creatinine 0.68, Estim Creat Clear Calc 41.45, Est GFR (MDRD) Af Amer 110, Est GFR (MDRD) Non-Af 91, BUN/Creatinine Ratio 42.9 H, Glucose 175 H, Calcium 8.4 L, Total Creatine Kinase 17 L, Triglycerides 206 H Current Medications Dextrose (Dextrose 50%-Water 25 Gm/50 Ml Disp.Syrin) 0 gm IV X1 PRN; Protocol PRN Reason: Hypoglycemia Glucagon (Glucagon 1 Mg/Ml Syringe) 1 mg IM .X1 PRN PRN Reason: Hypoglycemia Sodium Chloride () 250 mls @ 15 mls/hr IV .[id number] PRN PRN Reason: Saline Flush Last Infusion: 05/25/20 03:30 Dose: Infused Documented by: Sodium Chloride () 250 mls @ 15 mls/hr IV .[id number] PRN PRN Reason: Additional IVPB Infusion Lorazepam (Lorazepam 2 Mg/Ml Syringe) 1 mg IV Q1H PRN PRN Reason: ANXIETY Last Admin: 05/25/20 12:49 Dose: 1 mg Documented by: Morphine Sulfate (Morphine 4 Mg/Ml Syringe) 0 mg IV Q15M PRN PRN Reason: Respiratory Distress, RR>30 Last Admin: 05/25/20 12:49 Dose: 4 mg Documented by: Sodium Chloride (0.9% Saline Lock 10 Ml Syringe) 10 - 40 ml IV UD PRN PRN Reason: SALINE FLUSH Last Admin: 05/25/20 11:52 Dose: 40 ml Documented by: Discharge Diet: No Restrictions Primary Care Physician: Wale Parker MD [Primary Care Provider] - Disposition: Hospice Medical Facility Minutes spent on discharge:: 45 Patient Condition:: Critical Medical Necessity - Tobacco Use Smoking Status: Never smoker Meaningful Use Info Meaningful Use Diagnoses (Choose all that apply): None applicable Inpatient E&M: [id number] Disch Hosp
--- NOTE | 2020-05-25 16:03 | CASEMGMT ---
ANABELL spoke with Rickie at Hospice. She asked that Dr Johnson call Dr Musa at Hospice to discuss if patient is appropriate for the inpatient unit. ANABELL notified Dr Johnson. Rickie called ANABELL back a little while later and said [facility] will pick her up at 5p. ANABELL faxed d/c information along with the DNR to Hospice. ANABELL notified RN and gave her the phone number to call report. Rickie from Hospice notified family. Plan: d/c to [facility] Inpatient Unit. Renee GAMING MSW
--- NOTE | 2020-05-25 16:51 | NURSING ---
Report given to Jazmine at [facility]. ETA of 1700 reported.
--- NOTE | 2020-05-25 17:09 | NURSING ---
Pt's family updated that pt leaving [facility] at this time to go to Hospice.
== END 2020-05-25 17:10 | disposition hospice, inpatient (51) | DRG 870 ==
LOC: ED 23:38 → PCU 05-16 04:18 → ICU 05-18 00:16
PROVIDERS: Hospitalist; Internal Medicine; Internal Medicine Critical Care Medicine; Admitting Provider Hospitalist; Emergency Provider Student in an Organized Health Care Education/Training Program; PCP Family Medicine; Referring Provider Surgery; Visit Provider Internal Medicine
DX: A41.50 Gram-negative sepsis, unspecified (principal); U07.1 COVID-19; J12.89 Other viral pneumonia; R65.21 Severe sepsis with septic shock; J96.01 Acute respiratory failure with hypoxia; G93.41 Metabolic encephalopathy; J93.82 Other air leak; J93.83 Other pneumothorax; E87.6 Hypokalemia; G20 Parkinson's disease; I95.9 Hypotension, unspecified; F02.80 Dementia in other diseases classified elsewhere, unspecified severity, without behavioral disturbance, psychotic disturbance, mood disturbance, and anxiety
CPT/HCPCS: 31500; 31720; 36415; 36569; 36600; 71045; 71275; 74018; 80048; 80053; 81001; 82550; 82803; 82962; 83605; 83735; 83880; 84145; 84478; 84484; 85025; 85379; 85610; 85730; 87040; 87070; 87077; 87086; 87186; 87205; 87449; 87635; 93005; 94002; 94003; 94660; 97110; 97162; 97166; 97802; 97803; 99251; 99285; J7030; J7040; J7050; Q9967; A4216; G0463; J0696; J1940; J3010; U0002